=== PATIENT | female | born 1945 | race Caucasian/White ===

== ENCOUNTER → 2016-06-08 | Outpatient (REF) | payer MEDICARE, OTHER ==
[~2016-06-08] MED LIST: /AUGM875TA; /INSUREG; ACET65TA; ALLO100T PO; AMBI5TAB; AMBI6.25 PO; ASPI1TAB PO; AUGM500T34 PO; CRES40TA PO; DARV100T; DIAZ5TAB PO; ESTR3TA; ESTR3TA PO; HYDR25TA6; IBUP400T; INSUN SC; INSUR SC; KRIL1000 PO; LISI-538 PO; LISI10TA4; LISI2.5T; MAGN500C PO; METO25TAB PO; NOVOLIN N; OMEP20CA3 PO; PARO-39 PO; PHENERGAN; SIMV80TA; THERGRAN; TRAM50TA2 PO; VALI5TAB; VITMTA PO
[2016-06-08 11:56] LABS: EOS # 0.2 K/mm3 (0.0-0.50); EOS % 3.5 % (0.0-3.0); LARGE UNSTAINED CELL # 0.2 K/mm3 (0.0-0.4); LARGE UNSTAINED CELL % 3.3 % (0.0-4.0); LYMPH # 1.9 K/mm3 (1.5-4.5); LYMPH % 32.5 % (24.0-44.0); MEAN CORPUSCULAR HGB CONC 33.5 g/dl (32.0-36.5); MEAN CORPUSCULAR VOLUME 101.4 fl (80.0-96.0); MONO # 0.4 K/mm3 (0.0-0.8); MONO % 7.4 % (0.0-5.0); NEUTROPHILS # 2.7 K/mm3 (1.8-7.7); NEUTROPHILS % 52.3 % (36.0-66.0); PLATELET COUNT, AUTOMATED 248 k/mm3 (150-450); RED CELL DISTRIBUTION WIDTH 13.6 % (11.5-14.5); WHITE BLOOD COUNT 5.2 K/mm3 (4.0-10.0)
[2016-06-08 12:19] LABS: ALBUMIN 3.4 GM/DL (3.2-5.2); ALBUMIN/GLOBULIN RATIO 0.97 (1.00-1.93); BILIRUBIN,TOTAL 0.3 MG/DL (0.2-1.0); CALCIUM LEVEL 10.1 MG/DL (8.8-10.2); CREATININE FOR GFR 1.24 MG/DL (0.55-1.02); GLOMERULAR FILTRATION RATE 45.8 (>45); PERCENT SATURATION 33.9 % (13.2-37.4); POTASSIUM SERUM 4.4 MEQ/L (3.5-5.1); TOTAL PROTEIN 6.9 GM/DL (6.4-8.2)
== END ==
LOC: M SFHCPLAZ 09:04
PROVIDERS: ATTEND Physician Assistant Medical
DX: D64.9 Anemia, unspecified (principal); E11.9 Type 2 diabetes mellitus without complications

== ENCOUNTER → 2016-06-08 | Outpatient (CLI) | payer MEDICARE, OTHER ==
--- NOTE | 2016-06-08 14:38 | REPMRS ---
Patient History The patient states she has not had a clinical breast exam in over a year. No known family history of cancer. Taking estrogen for 8 years. Digital Woman Screen Mammo: June 08, 2016 - Exam #: [id number] Bilateral CC and MLO view(s) were taken. Technologist: Noemi Joseph, Technologist Prior study comparison: August 15, 2013, digital woman screen mammo performed at [facility]. January 21, 2012, bilateral bilat screen digital mammo, performed at [facility]. September 17, 2009, bilateral bilat screen digital mammo, performed at [facility]. FINDINGS: There are scattered fibroglandular densities. There has been no change in the appearance of the mammogram from the prior studies. There is a mild amount of scattered fibroglandular density which is fairly symmetric. There is no interval development of dominant mass, architectural distortion, or clustered microcalcification suggestive of malignancy. ASSESSMENT: BI-RADS/ACR category 1 mammogram. Negative. Recommendation Routine screening mammogram in 1 year (for women over age 40). This mammogram was interpreted with the aid of an FDA-approved computer-aided dectection system. Electronically Signed By: Ronni Street MD 06/08/16 [id number]
--- NOTE | 2016-06-10 09:50 | DEXA ---
AP SPINE L1 - L4 0.957 -1.9 -1.1 LT FEMUR TOTAL 0.856 -1.2 -0.4 RT FEMUR TOTAL 0.843 -1.3 -0.5 TOTAL BODY TOTAL L3 0.864 -2.8 -2.0 DUAL FEMUR FRAX* ASSESSMENT Risk factors: History of adult fracture, insulin-dependent diabetic, premature menopause, rheumatoid arthritis, tobacco user. 10 year probability of fracture Major osteoporotic fracture 19.2 % Hip fracture 4.3 % COMMENTS: There is low bone density of the spine and hips. The density of the spine has increased 0.9% since 08/15/2013. The density of the left hip has decreased 3.2% since 08/15/2013. The density of the right hip has decreased 1.7% since 08/15/2013. FOLLOW-UP: Recommendation for the next bone density exam: 2 years. GIULIA
== END ==
LOC: M WHC 12:55
PROVIDERS: ATTEND Physician Assistant Medical
DX: Z12.31 Encounter for screening mammogram for malignant neoplasm of breast (principal); I10 Essential (primary) hypertension; M85.851 Other specified disorders of bone density and structure, right thigh; D64.9 Anemia, unspecified; E11.9 Type 2 diabetes mellitus without complications; M85.852 Other specified disorders of bone density and structure, left thigh; M85.89 Other specified disorders of bone density and structure, multiple sites
CPT/HCPCS: 36415; 77080; 80053; 82043; 82728; 83036; 83550; 85025; G0202

== ENCOUNTER 2016-06-10 15:05 | Emergency (ER) | payer MEDICARE, OTHER ==
[~2016-06-10] VITALS: Ht 160 cm; Wt 87.1 kg
[2016-06-10] MEDS ORDERED: ASPIRIN 81 MG CHEW TABLET As Ordered ONE (15:33)
[2016-06-10] MEDS: NITROGLYCERIN 0.4 MG SUBL TABLET SL PRN ×3 (15:37→15:57)
[2016-06-10] MEDS ORDERED: TENECTEPLASE 50 MG KIT (TNKase)(J3101) IV ONE (15:45)
[2016-06-10] MEDS ORDERED: NITROGLYCERIN 2% OINT 1 GM *U/D* PKT As Ordered ONE (15:58)
[2016-06-10] MEDS ORDERED: ASPIRIN 81 MG CHEW TABLET PO ONE ×2 (16:00→16:15)
[2016-06-10] MEDS ORDERED: HEPARIN SOD (PORCINE) 5000 UNITS/ML VIAL IV ONE ×3 (16:00→16:15)
[2016-06-10] MEDS ORDERED: CLOPIDOGREL 75 MG TAB PO STA (16:00)
[2016-06-10] MEDS ORDERED: MORPHINE 4 MG/ML 1ML SYRINGE As Ordered ONE (16:10)
[2016-06-10 16:13] LABS: BASO % 0.5 % (0.0-1.0); EOS # 0.1 K/mm3 (0.0-0.50); EOS % 1.2 % (0.0-3.0); LARGE UNSTAINED CELL # 0.2 K/mm3 (0.0-0.4); LARGE UNSTAINED CELL % 2.3 % (0.0-4.0); LYMPH # 1.3 K/mm3 (1.5-4.5); LYMPH % 12.8 % (24.0-44.0); MEAN CORPUSCULAR HEMOGLOBIN 33.9 pg (27.0-33.0); MEAN CORPUSCULAR HGB CONC 33.4 g/dl (32.0-36.5); MEAN CORPUSCULAR VOLUME 101.7 fl (80.0-96.0); MONO # 0.5 K/mm3 (0.0-0.8); MONO % 5.1 % (0.0-5.0); NEUTROPHILS # 6.9 K/mm3 (1.8-7.7); NEUTROPHILS % 78.1 % (36.0-66.0); PLATELET COUNT, AUTOMATED 246 k/mm3 (150-450); RED CELL DISTRIBUTION WIDTH 13.6 % (11.5-14.5); WHITE BLOOD COUNT 8.9 K/mm3 (4.0-10.0)
[2016-06-10] MEDS ORDERED: NITROGLYCERIN 2% OINT 1 GM *U/D* PKT TOP ONE (16:15)
[2016-06-10] MEDS ORDERED: METOPROLOL TART 25 MG TABLET PO ONE (16:15)
[2016-06-10] MEDS ORDERED: MORPHINE 4 MG/ML 1ML SYRINGE IV ONE (16:15)
[2016-06-10] MEDS ORDERED: HEPARIN DRIP 25,000 UNITS in APPROPRIATE DILUENT 1 EA IV SCH (16:30)
[2016-06-10] MEDS ORDERED: ONDANSETRON 4MG/2ML VIAL (J2405) As Ordered ONE (16:36)
[2016-06-10] MEDS ORDERED: ONDANSETRON 4MG/2ML VIAL (J2405) IV ONE (16:45)
--- NOTE | 2016-06-10 16:55 | REP ---
PORTABLE CHEST, ONE VIEW: HISTORY: Chest pain. COMPARISON: 11/10/2015 Minimal bibasilar scarring is present. The cardiac silhouette is enlarged. The pulmonary vasculature is normal in appearance. IMPRESSION: 1. Bibasilar scarring. 2. Cardiomegaly. Signed by Lucho Briggs MD 06/10/2016 04:55 P
[2016-06-10] MEDS ORDERED: HEPARIN SOD (PORCINE) 5000 UNITS/ML VIAL ONE (17:07)
[2016-06-10] MEDS ORDERED: HEPARIN 25,000 UNITS/250 ML D5W BAG (100 UNITS/ML) ONE (17:07)
[2016-06-10] MEDS ORDERED: TENECTEPLASE 50 MG KIT (TNKase)(J3101) ONE (17:07)
[2016-06-10 17:15] LABS: CALCIUM LEVEL 9.9 MG/DL (8.8-10.2); CREATININE FOR GFR 1.38 MG/DL (0.55-1.02); GLOMERULAR FILTRATION RATE 40.5 (>45); POTASSIUM SERUM 3.8 MEQ/L (3.5-5.1)
--- NOTE | 2016-06-10 17:16 | REP ---
CT HEAD WITHOUT CONTRAST: HISTORY: Headache. Areas of decreased attenuation are present in the periventricular white matter. This represents small vessel ischemic disease. There is no intraparenchymal hemorrhage, mass, or midline shift. The ventricular system and cortical sulci are dilated consistent with minimal volume loss. There is no extracerebral collection. Mucosal thickening is present in the maxillary and right ethmoid sinuses. IMPRESSION: 1. Small vessel ischemic disease. 2. Minimal volume loss. Signed by Lucho Briggs MD 06/11/2016 08:20 A
[2016-06-10 17:20] VITALS: BP 160/68
[2016-06-10] MEDS ORDERED: NS 500 ML IV ONE (17:45)
--- NOTE | 2016-06-10 18:07 | ECGEPIP ---
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
--- NOTE | 2016-06-10 18:07 | ECGEPIP ---
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
== END 2016-06-10 17:25 | disposition short-term general hospital (02) ==
LOC: M ED 17:06
DX: I21.3 ST elevation (STEMI) myocardial infarction of unspecified site (principal); I10 Essential (primary) hypertension; E11.9 Type 2 diabetes mellitus without complications; J45.909 Unspecified asthma, uncomplicated; F41.9 Anxiety disorder, unspecified; E78.5 Hyperlipidemia, unspecified; N28.9 Disorder of kidney and ureter, unspecified; Z79.899 Other long term (current) drug therapy; Z79.82 Long term (current) use of aspirin; Z79.4 Long term (current) use of insulin; Z88.2 Allergy status to sulfonamides; Z88.5 Allergy status to narcotic agent
CPT/HCPCS: 36415; 70450; 71010; 80048; 82550; 82553; 84484; 85025; 93005; 93041; 94760; 96374; 96375; 99285; J2405; J3101

== ENCOUNTER → 2016-07-01 | Outpatient (REF) | payer MEDICARE, OTHER ==
[2016-07-01 12:56] LABS: INR 1.74
== END ==
LOC: M LABDRWAD 12:21
PROVIDERS: ATTEND Nurse Practitioner Family
DX: Z51.81 Encounter for therapeutic drug level monitoring (principal); Z79.01 Long term (current) use of anticoagulants; I25.10 Atherosclerotic heart disease of native coronary artery without angina pectoris; Z95.1 Presence of aortocoronary bypass graft

== ENCOUNTER → 2016-07-03 | Outpatient (REF) | payer MEDICARE, OTHER ==
[2016-07-03 10:09] LABS: INR 1.5
== END ==
LOC: M LABDRWAD 09:52
PROVIDERS: ATTEND Nurse Practitioner Family
DX: Z51.81 Encounter for therapeutic drug level monitoring (principal); Z79.01 Long term (current) use of anticoagulants; I25.10 Atherosclerotic heart disease of native coronary artery without angina pectoris; Z95.1 Presence of aortocoronary bypass graft

== ENCOUNTER → 2016-07-13 | Outpatient (REF) | payer MEDICARE, OTHER ==
[2016-07-13 13:37] LABS: BASO # 0.1 K/mm3 (0.0-0.2); BASO % 0.9 % (0.0-1.0); EOS # 0.2 K/mm3 (0.0-0.50); LARGE UNSTAINED CELL # 0.2 K/mm3 (0.0-0.4); LARGE UNSTAINED CELL % 2.7 % (0.0-4.0); LYMPH # 1.4 K/mm3 (1.5-4.5); LYMPH % 16.8 % (24.0-44.0); MEAN CORPUSCULAR HEMOGLOBIN 32.7 pg (27.0-33.0); MEAN CORPUSCULAR HGB CONC 31.7 g/dl (32.0-36.5); MEAN CORPUSCULAR VOLUME 103.1 fl (80.0-96.0); MONO # 0.5 K/mm3 (0.0-0.8); MONO % 7.8 % (0.0-5.0); NEUTROPHILS # 4.8 K/mm3 (1.8-7.7); NEUTROPHILS % 68.9 % (36.0-66.0); PLATELET COUNT, AUTOMATED 384 k/mm3 (150-450); RED CELL DISTRIBUTION WIDTH 14.9 % (11.5-14.5); WHITE BLOOD COUNT 6.9 K/mm3 (4.0-10.0)
[2016-07-13 13:48] LABS: ALBUMIN 3.1 GM/DL (3.2-5.2); ALBUMIN/GLOBULIN RATIO 0.89 (1.00-1.93); ALKALINE PHOSPHATASE 157 U/L (45-117); ALT/SGPT 38 U/L (12-78); ANION GAP 8 MEQ/L (8-16); AST/SGOT 17 U/L (15-37); BILIRUBIN,TOTAL 0.3 MG/DL (0.2-1.0); BLOOD UREA NITROGEN 22 MG/DL (7-18); CALCIUM LEVEL 9.4 MG/DL (8.8-10.2); CARBON DIOXIDE LEVEL 24 MEQ/L (21-32); CHLORIDE LEVEL 110 MEQ/L (98-107); CHOLESTEROL LEVEL 142 MG/DL (<200); CREATININE FOR GFR 1.61 MG/DL (0.55-1.02); FERRITIN 224 NG/ML (8-252); GLOMERULAR FILTRATION RATE 33.9 (>45); GLUCOSE, FASTING 104 MG/DL (80-110); PERCENT SATURATION 9.2 % (13.2-37.4); POTASSIUM SERUM 4.9 MEQ/L (3.5-5.1); SODIUM LEVEL 142 MEQ/L (136-145); TOTAL IRON BINDING CAPACITY 306 UG/DL (250-450); TOTAL PROTEIN 6.6 GM/DL (6.4-8.2); TRIGLYCERIDES LEVEL 165 MG/DL (<150)
[2016-07-13 13:54] LABS: FOLATE > 24.0 NG/ML; VITAMIN B12 LEVEL 701 PG/ML
== END ==
LOC: M SFHCPLAZ 11:02
PROVIDERS: ATTEND Physician Assistant Medical
DX: I10 Essential (primary) hypertension (principal); E11.9 Type 2 diabetes mellitus without complications; D64.9 Anemia, unspecified

== ENCOUNTER 2016-08-12 18:34 | Inpatient (IN) | payer MEDICARE, OTHER ==
[~2016-08-12] VITALS: Ht 160 cm; Wt 90.6 kg
[~2016-08-12 18:34] MED LIST changes: -AMLO10TA2 PO; -AMLO5TAB2 PO; -ASPI81TAEC PO; -CIPRODEX AS; -CLON-412 PO; -COLC1CAP PO; -FERR325T PO; -K-TA1TAB PO; -LASI40TA PO; -LIPI80TA PO; -MAGN400T PO; -METO-346 PO; -ONDA1TAB15 PO; -RAMI25CA PO; -VITA-130 PO; -VITA100037 PO; -VITA400C2 PO; -VITA50003 PO; -ZOFR4SOL PO
[2016-08-12] MEDS ORDERED: LIPI80TA PO (18:52)
[2016-08-12] MEDS ORDERED: K-TA1TAB PO (18:56)
[2016-08-12] MEDS ORDERED: COLC1CAP PO (18:56)
[2016-08-12] MEDS ORDERED: AMLO5TAB2 PO (18:56)
[2016-08-12] MEDS ORDERED: ZOFR4SOL PO (18:56)
[2016-08-12] MEDS ORDERED: VITA100037 PO (18:56)
[2016-08-12] MEDS ORDERED: CLON-412 PO (18:58)
[2016-08-12 19:51] LABS: BASO # 0.1 K/mm3 (0.0-0.2); BASO % 0.8 % (0.0-1.0); EOS # 0.3 K/mm3 (0.0-0.50); EOS % 4.4 % (0.0-3.0); LARGE UNSTAINED CELL # 0.2 K/mm3 (0.0-0.4); LARGE UNSTAINED CELL % 2.7 % (0.0-4.0); LYMPH # 1.3 K/mm3 (1.5-4.5); LYMPH % 17.6 % (24.0-44.0); MEAN CORPUSCULAR HEMOGLOBIN 32.8 pg (27.0-33.0); MEAN CORPUSCULAR HGB CONC 31.6 g/dl (32.0-36.5); MONO # 0.5 K/mm3 (0.0-0.8); MONO % 7.2 % (0.0-5.0); NEUTROPHILS # 4.8 K/mm3 (1.8-7.7); NEUTROPHILS % 67.4 % (36.0-66.0); PLATELET COUNT, AUTOMATED 314 k/mm3 (150-450); WHITE BLOOD COUNT 7.1 K/mm3 (4.0-10.0)
--- NOTE | 2016-08-12 20:07 | REP ---
Chest two views HISTORY: Cough Comparison: 06/10/2016 Linear densities are present in the lower lobes consistent with scarring. New patchy density is present in the right lower lobe and left lower lobe consistent with atelectasis or infiltrate. The heart is normal in size. The pulmonary vasculature is normal in appearance. The bony structure is intact. IMPRESSION: Bibasilar atelectasis or infiltrate superimposed on scarring. Signed by Lucho Briggs MD 08/12/2016 07:59 P
[2016-08-12 20:22] LABS: ALBUMIN 3.4 GM/DL (3.2-5.2); ALBUMIN/GLOBULIN RATIO 0.94 (1.00-1.93); ALKALINE PHOSPHATASE 145 U/L (45-117); ALT/SGPT 36 U/L (12-78); ANION GAP 8 MEQ/L (8-16); AST/SGOT 23 U/L (15-37); BILIRUBIN,DIRECT 0.1 MG/DL (0.0-0.2); BILIRUBIN,TOTAL 0.4 MG/DL (0.2-1.0); BLOOD UREA NITROGEN 12 MG/DL (7-18); CALCIUM LEVEL 8.9 MG/DL (8.8-10.2); CARBON DIOXIDE LEVEL 26 MEQ/L (21-32); CHLORIDE LEVEL 107 MEQ/L (98-107); CREATININE FOR GFR 1.17 MG/DL (0.55-1.02); GLUCOSE, FASTING 121 MG/DL (80-110); POTASSIUM SERUM 4.4 MEQ/L (3.5-5.1); SODIUM LEVEL 141 MEQ/L (136-145)
--- NOTE | 2016-08-12 20:30 | REPUSA ---
Clinical history: Pain, swelling. Findings: The common femoral, superficial femoral, popliteal, and other deep venous structures compre ss normally and demonstrate normal color Doppler flow. Normal venous waveforms with augmentation are seen.. A cystic lesion in the right popliteal fossa measures 5.8 x 3.5 x 2.6 cm. A cystic lesion in t he left popliteal fossa measures 6.1 x 1.7 x 5.6 cm. Impression: No evidence of deep vein thrombosis in either femoral popliteal venous system. Bilateral Sáncehz cysts.
[2016-08-12 20:39] LABS: INR 0.93
[2016-08-12] MEDS ORDERED: AMPICILLIN SOD/SULBACTAM SOD 1.5 GM in D5W MINI-BAG PLUS 50 ML IV ONE (20:45)
[2016-08-12] MEDS ORDERED: CIPRODEX OTIC SUSP 7.5ML AS SCH (21:00)
[2016-08-12] MEDS ORDERED: FUROSEMIDE 40 MG/4 ML VIAL (J1940) IV ONE (21:00)
[2016-08-12] MEDS ORDERED: IPRATROPIUM 0.5MG/ALBUTEROL 2.5MG INH SOL UD 3ML (DUONEB)(J7620) NEB PRN (21:45)
[2016-08-12] MEDS ORDERED: GLUCAGON FOR INJ 1 MG VIAL (J1610) SC PRN (21:45)
[2016-08-12] MEDS ORDERED: DEXTROSE 50% 50 ML SYRINGE IV PRN (21:45)
[2016-08-12] MEDS ORDERED: GLUCOSE 4 GM CHEW TABLET PO PRN (21:45)
[2016-08-12] MEDS ORDERED: ASPI81TAEC PO (21:49)
[2016-08-12] MEDS ORDERED: MAGN400T PO (21:49)
[2016-08-12] MEDS ORDERED: VITA50003 PO (21:49)
[2016-08-12] MEDS ORDERED: VITA400C2 PO (21:49)
[2016-08-12] MEDS ORDERED: METO-346 PO (21:49)
[2016-08-12] MEDS ORDERED: VITA-130 PO (21:49)
[2016-08-12] MEDS ORDERED: ONDA1TAB15 PO (21:49)
[2016-08-12] MEDS ORDERED: AMLO10TA2 PO (21:49)
[2016-08-12 23:55] VITALS: BP 166/54
[2016-08-13] MEDS ORDERED: ONDANSETRON 4 MG TAB (S0181) PO PRN
--- NOTE | 2016-08-13 00:22 | HPE ---
DATE OF ADMISSION: 08/12/2016 PRIMARY CARE PROVIDER: The patient seeing Angi Galindo. REASON FOR ADMISSION: Ankle swelling. HISTORY OF PRESENT ILLNESS: The patient is a 70-year-old female who presented to the emergency room after she was instructed to do so from urgent care clinic. She stated that patient has been having some ankle swelling and shortness of breath for about a day. Went to urgent care clinic, and they saw that her ankle was swollen. The patient was also there because of an ongoing otitis externa. At the urgent care clinic after they had evaluated her, they recommended that she present to the emergency room for further evaluation and treatment. In the emergency room the patient had cultures of her ear. She was started on Unasyn for her otitis externa. She was also evaluated for possible congestive heart failure and shortness of breath. Her brain natriuretic peptide (BNP) was found to be 607. The patient required oxygen supplementation to bring her saturations above 90. Upon my exam, she was on 4 liters nasal cannula. She denied any shortness of breath while lying in bed, but she stated that yesterday and earlier today she was unable to exert herself without getting short of breath, which is not normal for her. She is normally active and lives independently. In the emergency room, the patient also underwent a chest x-ray, which showed bilateral atelectasis or infiltrate superimposed on scarring. Lower extremity ultrasound was done to evaluate for lower extremity swelling and was negative for deep vein thrombosis (DVT). The patient denied any chest pain at this time. Denied any shortness of breath with rest. Only with activity did she feel short of breath. Denied any fevers or chills. Denied any cough. Denied any nausea or vomiting. Denied any headaches or dizziness. Denied any other symptoms. REVIEW OF SYSTEMS: A 12-point review of systems was obtained, all of which was negative except for those mentioned above. PAST MEDICAL HISTORY: Significant for: 1. Coronary disease. 2. Hypertension. 3. Hyperlipidemia. 4. Diabetes. 5. Chronic kidney disease. 6. Gout. 7. Anxiety. 8. Chronic obstructive pulmonary disease (COPD). PAST SURGICAL HISTORY: Significant for: 1. Recent cardiac bypass in June. 2. Cholecystectomy. 3. Appendectomy. 4. Tonsillectomy. 5. Adenoidectomy. 6. Multiple dilatation and curettages. 7. Partial hysterectomy and tubal ligation. ALLERGIES: NARCOTICS and SULFA DRUGS. SOCIAL HISTORY: The patient used to smoke a pack a day for approximately 50 years. She had quit after her heart attack in June. Alcohol use: None. The patient lives alone. HOME MEDICATIONS: Include: - allopurinol 100 mg by mouth daily - amlodipine 10 mg daily - ascorbic acid 500 mg daily - aspirin 81 mg daily - atorvastatin 80 mg daily - clonidine 0.1 mg by mouth twice a day - diazepam 5 mg by mouth at bedtime - vitamin D 50,000 units once a week - insulin sliding scale - magnesium 400 mg daily - metoprolol 12.5 mg by mouth as needed cardiac palpitations and 12.5 daily - multivitamin one tablet daily - omeprazole 20 mg daily - Zofran 4 mg every 8 hours as needed for nausea or vomiting - paroxetine 20 mg daily - potassium chloride 20 mEq by mouth daily - vitamin E 40 units by mouth daily, - Ambien 6.25 mg by mouth at bedtime - Colchicine 0.6 mg by mouth twice a day as needed for gout flare-ups - Premarin tablets 0.3 mg by mouth at bedtime PHYSICAL FINDINGS: VITAL SIGNS: On admission, temperature 97.2, pulse 68, respiratory rate 18, blood pressure is 183/79, pulse oximetry 93% on room air. HEENT: Pupils equal, round, reactive to light and accommodation. NECK: Supple. No jugular venous distention (JVD). LUNGS: Positive crackles bilaterally. EXTREMITIES: Trace edema bilaterally. ABDOMEN: Soft, nontender, nondistended. NEUROLOGIC: Cranial nerves II-XII grossly intact. No focal deficits. LABORATORY FINDINGS: Sodium 41, potassium 4.4, chloride 107, BUN 12, creatinine 1.17, lactic acid 1.5 , fasting glucose 121, alkaline phosphatase 145, C-reactive protein 0.64. BNP 607. WBC 7.1, hemoglobin 10.8, hematocrit 34.1, platelet count 314. ASSESSMENT AND PLAN: 1. Shortness of breath, likely secondary to congestive heart failure versus possible pneumonia. The patient received one dose of intravenous (IV) Lasix in the emergency room. We will continue the patient on IV Lasix. Will monitor intake and output and daily weight. The patient recently had an echocardiogram after her bypass in June. Recommend obtaining records. The patient is also on Unasyn. We will start the patient on incentive spirometer. The patient is currently requiring oxygen to keep saturations above 90. We will continue oxygen at this time. Titrate to keep oxygen level above 90%. 2. Otitis externa. Cultures are pending. Continue IV antibiotics. 3. Insulin-dependent diabetes. We will continue sliding-scale insulin before meals and at bedtime. 4. Hypertension. Continue the patient's amlodipine, metoprolol, and clonidine. 5. Hyperlipidemia. Continue atorvastatin 80 mg by mouth daily. 6. History of anxiety. Will continue the patient's home medications. 7. History of gout. Continue allopurinol. 8. History of chronic kidney disease, currently stable. 9. History of CAD. 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 Deep vein thrombosis (DVT) prophylaxis. Lovenox subcutaneously daily. MTDD
[2016-08-13] MEDS: OXYMETAZOLINE NASAL SPRAY (AFRIN) SCH ×2 (00:59→20:59)
[2016-08-13] MEDS: zolPIDEM CR 6.25MG TABLET (AMBIEN CR) PO SCH ×2 (00:59→23:12)
[2016-08-13] MEDS: cloNIDine 0.1 MG TAB PO SCH ×3 (00:59→20:58)
[2016-08-13] MEDS ORDERED: AMPICILLIN SOD/SULBACTAM SOD 1.5 GM in D5W MINI-BAG PLUS 50 ML IV SCH (03:00)
[2016-08-13] MEDS: AMPICILLIN SOD/SULBACTAM SOD 1.5 GM in D5W MINI-BAG PLUS 50 ML IV SCH ×4 (03:36→20:57)
[2016-08-13 04:54] VITALS: BP 150/65
[2016-08-13 05:49] LABS: MEAN CORPUSCULAR HEMOGLOBIN 32.1 pg (27.0-33.0); MEAN CORPUSCULAR HGB CONC 31.4 g/dl (32.0-36.5); RED CELL DISTRIBUTION WIDTH 14.9 % (11.5-14.5); WHITE BLOOD COUNT 6.9 K/mm3 (4.0-10.0)
[2016-08-13 06:21] LABS: ALBUMIN/GLOBULIN RATIO 0.83 (1.00-1.93); BILIRUBIN,TOTAL 0.4 MG/DL (0.2-1.0); CALCIUM LEVEL 8.3 MG/DL (8.8-10.2); CREATININE FOR GFR 1.09 MG/DL (0.55-1.02); GLOMERULAR FILTRATION RATE 53.1 (>45); MAGNESIUM LEVEL 1.5 MG/DL (1.8-2.4); POTASSIUM SERUM 3.8 MEQ/L (3.5-5.1); TOTAL PROTEIN 6.6 GM/DL (6.4-8.2)
[2016-08-13] MEDS: HumaLOG INSULIN (NovoLOG) PER UNIT SC SCH ×3 (07:55→16:54)
[2016-08-13 08:00] VITALS: BP 153/66
[2016-08-13] MEDS ORDERED: amLODIPine 10 MG TAB PO SCH (09:00)
[2016-08-13] MEDS: FUROSEMIDE 40 MG/4 ML VIAL (J1940) IV SCH ×2 (09:34→16:44)
[2016-08-13] MEDS: CIPRODEX OTIC SUSP 7.5ML AS SCH ×2 (09:34→20:57)
[2016-08-13] MEDS: ATORVASTATIN 20 MG TAB PO SCH (09:35)
[2016-08-13] MEDS: ASPIRIN 81 MG ENTERIC TAB PO SCH (09:35)
[2016-08-13] MEDS: ENOXAPARIN 30 MG/0.3 ML SYR (J1650) SC SCH (09:35)
[2016-08-13] MEDS: OMEPRAZOLE 20 MG CAP PO SCH (09:36)
[2016-08-13] MEDS: PARoxetine 20 MG TAB PO SCH (09:36)
[2016-08-13] MEDS: ALLOPURINOL 100 MG TAB PO SCH (09:37)
[2016-08-13] MEDS: POTASSIUM CHLORIDE 10 MEQ SR TABLET PO SCH (09:37)
[2016-08-13] MEDS: METOPROLOL TART 12.5 MG PER 1/2 TAB PO SCH (09:37)
[2016-08-13] MEDS: MULTIVITAMINS/MINERALS THERAP 1 TAB PO SCH (09:37)
[2016-08-13] MEDS: ASCORBIC ACID 500 MG TAB PO SCH (09:38)
[2016-08-13] MEDS: MAGNESIUM OXIDE 400 MG TAB (MAG-OX) PO SCH (09:38)
--- NOTE | 2016-08-13 10:09 | ECGEPIP ---
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
--- NOTE | 2016-08-13 10:57 | IPNPDOC ---
Subjective Date Seen The patient was seen on 08/13/16. Subjective Chief Complaint/HPI The patient is a 70-year-old female admitted with a reason for visit of Chf Exacerbation. Events since last encounter Pt this morning notes less swelling and tenderness of the L ear. Thinks it is less red also. She states that the swelling in her legs in much better than yesterday as well as her breathing, which she hadn't previously really identified as being short. General: Denies: Fatigue Constitutional: Denies: Chills, Fever Pulmonary: Denies: Dyspnea, Cough Cardiovascular: Denies: Chest Pain, Palpitations Gastrointestinal: Denies: Nausea, Vomiting, Diarrhea Neurological: Denies: Weakness Psych: Reports: Mood Normal Objective Physical Examination General Exam: Positive: Alert, Cooperative, No Acute Distress ENT Exam: Positive: Mucous membr. moist/pink, Other ENT (Auricle swollen, slightly tender on the L, yellow crust post ear) Chest Exam: Positive: Clear to auscultation, Normal air movement Heart Exam: Positive: Rate Normal, Normal S1, Normal S2 Abdomen Exam: Positive: Normal bowel sounds, Soft, Negative: Tenderness Extremity Exam: Positive: Edema (trace LLE, 1 mm RLE) Psych Exam: Positive: Mental status NL, Mood NL Assessment /Plan Problems (1) Acute on chronic diastolic (congestive) heart failure Permanent Comment: 06/11/16 ECHO - moderate LVH, nl EF, Carlos 1 diastolic dysfunction, LA mildly dilated, mild valvular , mild to mod AR, mild TR Last Edited By: Sandrita Enriquez PA-C on August 13, 2016 10:55 Status: Acute Response to Treatment: Stable, Improving Discussed With: Patient Problem Specific Plan: Monitor Clinically, Repeat Labs Problem Text: On IV Lasix 40 mg IV BID for now, enc SAEID diet, will need to be d /c on PO Lasix, previously was no one. 08/13/16 close to dry weight//net - fluid 3L//+ ramipril 2.5 BID, reduce amlo 10 to 5 (h/o rebound HTN c clonidine wean) ECHO 06/11/16 suggests nl EF, + diastolic dysfunction-repeat now 08/12/16 - CIP/T-I x 3 (2) Fe deficiency anemia Status: Acute Problem Text: also 2 ACD/recent loss 2 CABG 08/13 9.6; therefore, + Fe BID, check HO 07/13 TIBC 9% 06/08 hgb 12.8 (3) Cellulitis of ear Status: Acute Response to Treatment: Stable, Improving Discussed With: Patient Problem Specific Plan: Monitor Clinically, Repeat Labs Problem Text: Started on Unasyn, culture obtained, states that she had a sore behind the ear from wearing O2 while at [facility] kept getting worse. It is much better today than yesterday. Afebrile, no leukocytosis, cultures pending. (4) Otitis externa Status: Acute (5) CAD (coronary artery disease) Status: Chronic Response to Treatment: Stable Problem Specific Plan: Monitor Clinically Problem Text: Recent CABG, asymptomatic. Cont with ASA, Lipitor, Lopressor (6) Hypomagnesemia Status: Acute Problem Specific Plan: Monitor Clinically, Repeat Labs Problem Text: Replaced with po and IV Mag. Recheck Mag level in AM. (7) CKD (chronic kidney disease) stage 3, GFR 30-59 ml/min Status: Chronic Response to Treatment: Stable Problem Text: 08/13 14/1.1 baseline cr 1.1-1.2 Plan/VTE VTE Prophylaxis Ordered?: Yes VS, I&O, 24H, Fishbone Vital Signs/I&O Vital Signs Date Time Temp Pulse Resp B/P (MAP) Pulse Ox O2 Delivery O2 Flow Rate FiO2 08/13/16 09:37 69 153/66 08/13/16 08:00 98.6 22 92 Room Air 08/13/16 07:33 2.0 I&O- Last 24 Hours up to 6 AM 08/13/16 05:59 Intake Total 150 ml Output Total 4350 ml Balance -4200 ml Laboratory Data 24H LABS Laboratory Tests 2 08/12/16 18:52: White Blood Count 7.1, Red Blood Count 3.27L, Hemoglobin 10.8L, Hematocrit 34.1L , Mean Corpuscular Volume 104.0H, Mean Corpuscular Hemoglobin 32.8, Mean Corpuscular Hemoglobin Concent 31.6L, Red Cell Distribution Width 15.0H, Platelet Count 314, Neutrophils (%) (Auto) 67.4H, Lymphocytes (%) (Auto) 17.6L, Monocytes (%) (Auto) 7.2H, Eosinophils (%) (Auto) 4.4H, Basophils (%) (Auto) 0.8 , Neutrophils # (Auto) 4.8, Lymphocytes # (Auto) 1.3L, Monocytes # (Auto) 0.5, Eosinophils # (Auto) 0.3, Basophils # (Auto) 0.1, Large Unclassified Cells % 2.7 , Large Unclassified Cells # 0.2, Prothrombin Time 12.6, Prothromb Time International Ratio 0.93, Anion Gap 8, Glomerular Filtration Rate 49.0, Calcium Level 8.9, Aspartate Amino Transf (AST/SGOT) 23, Alanine Aminotransferase (ALT/ SGPT) 36, Alkaline Phosphatase 145H, Total Bilirubin 0.4, Direct Bilirubin 0.1, Total Creatine Kinase 86, Creatine Kinase MB 1.0, Creatine Kinase MB Relative Index 1.16, Troponin I < 0.02, C-Reactive Protein, Quantitative 0.64H, B-Type Natriuretic Peptide 607H, Total Protein 7.0, Albumin 3.4, Albumin/Globulin Ratio 0.94L 08/12/16 20:14: Lactic Acid Level 1.5 08/12/16 23:14: Total Creatine Kinase 76, Creatine Kinase MB 1.0, Creatine Kinase MB Relative Index 1.31, Troponin I < 0.02 08/12/16 23:25: Bedside Glucose (Misc Panel) 125H 08/13/16 05:31: Anion Gap 9, Glomerular Filtration Rate 53.1, Blood Urea Nitrogen 14, Creatinine 1.09H, Sodium Level 141, Potassium Level 3.8, Chloride Level 103, Carbon Dioxide Level 29, Calcium Level 8.3L, Aspartate Amino Transf (AST/SGOT) 22, Alanine Aminotransferase (ALT/SGPT) 31, Total Creatine Kinase 69, Alkaline Phosphatase 131H, Total Bilirubin 0.4, Total Protein 6.6, Albumin 3.0L, Magnesium Level 1.5L, Creatine Kinase MB 1.0, Creatine Kinase MB Relative Index 1.44, Troponin I 0.02, Albumin/Globulin Ratio 0.83L CBC/BMP Laboratory Tests 08/12/16 18:52 Red Blood Count 3.27 L, Mean Corpuscular Volume 104.0 H, Mean Corpuscular Hemoglobin 32.8, Mean Corpuscular Hemoglobin Concent 31.6 L, Red Cell Distribution Width 15.0 H, Neutrophils (%) (Auto) 67.4 H, Lymphocytes (%) (Auto ) 17.6 L, Monocytes (%) (Auto) 7.2 H, Eosinophils (%) (Auto) 4.4 H, Basophils (% ) (Auto) 0.8, Neutrophils # (Auto) 4.8, Lymphocytes # (Auto) 1.3 L, Monocytes # (Auto) 0.5, Eosinophils # (Auto) 0.3, Basophils # (Auto) 0.1 08/13/16 05:31 Red Blood Count 3.01 L, Mean Corpuscular Volume 102.0 H, Mean Corpuscular Hemoglobin 32.1, Mean Corpuscular Hemoglobin Concent 31.4 L, Red Cell Distribution Width 14.9 H, Calcium Level 8.3 L, Aspartate Amino Transf (AST/SGOT ) 22, Alanine Aminotransferase (ALT/SGPT) 31, Total Creatine Kinase 69, Alkaline Phosphatase 131 H, Total Bilirubin 0.4, Total Protein 6.6, Albumin 3.0 L Microbiology Microbiology 08/12/16 Blood Culture, Received Pending 08/12/16 Blood Culture, Received Pending 08/12/16 Eye/Ear/Nose/Throat Culture, Received Pending SANDRITA ENRIQUEZ PA-C August 13, 2016 10:57 Brown Carroll M.D. August 13, 2016 16:36
[2016-08-13] MEDS: MAG SULF 1GM/100ML (MAG RUN) 1 GM in APPROPRIATE DILUENT 1 EA IV SCH ×2 (11:04→12:18)
[2016-08-13 12:00] VITALS: BP 130/62
[2016-08-13 16:00] VITALS: BP 142/64
[2016-08-13 19:34] VITALS: BP 165/69
[2016-08-13] MEDS: RAMIPRIL 2.5 MG CAP PO SCH (20:58)
[2016-08-13] MEDS: FERROUS SULFATE 325MG TAB PO SCH ×2 (20:58→21:00)
[2016-08-13] MEDS ORDERED: HumaLOG INSULIN (NovoLOG) PER UNIT SC SCH (21:00)
[2016-08-13 23:12] VITALS: BP 148/71
[2016-08-14] MEDS: AMPICILLIN SOD/SULBACTAM SOD 1.5 GM in D5W MINI-BAG PLUS 50 ML IV SCH ×2 (03:51→09:00)
[2016-08-14 04:42] VITALS: BP 144/69
[2016-08-14 05:40] LABS: MEAN CORPUSCULAR HEMOGLOBIN 33.1 pg (27.0-33.0); MEAN CORPUSCULAR HGB CONC 33.2 g/dl (32.0-36.5); MEAN CORPUSCULAR VOLUME 99.8 fl (80.0-96.0); RED CELL DISTRIBUTION WIDTH 15.1 % (11.5-14.5); WHITE BLOOD COUNT 4.7 K/mm3 (4.0-10.0)
[2016-08-14 05:58] LABS: ALBUMIN 2.9 GM/DL (3.2-5.2); ALBUMIN/GLOBULIN RATIO 0.81 (1.00-1.93); BILIRUBIN,TOTAL 0.5 MG/DL (0.2-1.0); CALCIUM LEVEL 8.8 MG/DL (8.8-10.2); CREATININE FOR GFR 1.16 MG/DL (0.55-1.02); GLOMERULAR FILTRATION RATE 49.5 (>45); POTASSIUM SERUM 4.1 MEQ/L (3.5-5.1); TOTAL PROTEIN 6.5 GM/DL (6.4-8.2)
[2016-08-14 08:00] VITALS: BP 156/72
[2016-08-14] MEDS ORDERED: RAMI25CA PO (08:14)
[2016-08-14] MEDS ORDERED: FERR325T PO (08:14)
[2016-08-14] MEDS ORDERED: LASI40TA PO (08:14)
[2016-08-14] MEDS ORDERED: AUGM500T34 PO (08:14)
[2016-08-14] MEDS ORDERED: AMLO5TAB2 PO (08:14)
[2016-08-14] MEDS ORDERED: CIPRODEX AS (08:14)
--- NOTE | 2016-08-14 08:43 | DSES ---
DATE OF ADMISSION: 08/12/2016 DATE OF DISCHARGE: 08/14/2016 PRIMARY CARE PROVIDER: Angi Galindo ATTENDING TODAY: Dr. Brown Carroll HISTORY: [place] first presented to urgent care with left-sided facial/ear pain, swelling, and redness, which had progressively been worsening. She states that when she was in the hospital about a month ago at [facility], she developed a sore behind her ear associated with wearing oxygen. She was unable to get this to heal and, in the last couple of days, it became red and painful and progressively worsened. Upon evaluation in the urgent care, they recommended she be seen in the emergency room because she also complained of shortness of breath and bilateral lower extremity edema. She was brought to the emergency room by her daughter, where she was found to be in diastolic congestive heart failure with a BNP of 607, requiring oxygenation to maintain her saturations greater than 90. She was admitted to the progressive care unit for further management and monitoring. She was also started on IV Unasyn for cellulitis of the left face and ear. During her hospitalization, she has remained medically stable. She has tolerated diuresis and has diuresed about 4.5 liters of fluid in the last 2-1/2 days. Her blood pressures have remained stable, as has her potassium. She has required magnesium replacement. Her echocardiogram from [facility] was reviewed; it was suggestive of a normal ejection fraction (EF) but a grade 1 diastolic dysfunction. Her left ear has significantly improved. The swelling, redness, and pain is significantly better. She is on ciprofloxacin/dexamethasone four drops twice daily to that left ear. She is also on Unasyn IV. She did have blood cultures, which were negative times two. She does have a wound culture of that ear, which remains pending. Due to the lower extremity edema, she also had ultrasound of bilateral lower extremities, which were negative for deep venous thrombosis (DVT). Clinically, she has improved. She has been weaned from her oxygen. Her respiratory status has improved. Her lower extremity edema has resolved. She feels comfortable to return home. DISCHARGE DIAGNOSES: Include: 1. Acute on chronic diastolic congestive heart failure. 2. Iron deficiency anemia. 3. Cellulitis of the left ear with otitis externa. 4. Coronary artery disease with recent coronary artery bypass graft (CABG) in June 2016. 5. Hypomagnesemia. 6. Chronic kidney disease Stage III. DISCHARGE MEDICATIONS: Include: - amlodipine 5 mg daily - Augmentin 500 mg by mouth three times a day - ciprofloxacin/dexamethasone drops, four drops to the left ear twice daily - ferrous sulfate 325 mg twice daily - Lasix 40 mg daily - Ramipril 2.5 mg twice daily - allopurinol 100 mg daily - vitamin C 500 mg by mouth daily - aspirin 81 mg daily - atorvastatin 80 mg daily - clonidine 0.1 mg twice daily - colchicine 0.6 mg by mouth twice a day as needed for gout - diazepam 5 mg before bed - vitamin D 50,000 units once weekly - NPH 22 units twice daily - regular sliding scale - magnesium oxide 400 mg daily - metoprolol 12.5 mg by mouth daily - multivitamin one tablet daily - omeprazole 20 mg daily - Zofran 4 mg every 8 hours as needed for nausea/vomiting - paroxetine 20 mg daily - potassium chloride 20 mEq by mouth daily - vitamin E 400 units daily - Ambien 6.25 mg by mouth before bed as needed for insomnia DISCHARGE PLAN: Will be to followup with Angi Galindo in 1 week. Activity should be as tolerated. Diet should be no added salt, consistent carbohydrate. Edited: lisset 08/17/2016 0901
[2016-08-14] MEDS: FERROUS SULFATE 325MG TAB PO SCH (09:00)
[2016-08-14] MEDS ORDERED: amLODIPine 5 MG TAB PO SCH (09:00)
[2016-08-14] MEDS: CIPRODEX OTIC SUSP 7.5ML AS SCH (09:46)
[2016-08-14] MEDS: HumaLOG INSULIN (NovoLOG) PER UNIT SC SCH (09:48)
[2016-08-14] MEDS: ENOXAPARIN 30 MG/0.3 ML SYR (J1650) SC SCH (09:49)
[2016-08-14] MEDS: FUROSEMIDE 40 MG/4 ML VIAL (J1940) IV SCH (09:49)
[2016-08-14] MEDS: ASPIRIN 81 MG ENTERIC TAB PO SCH (09:50)
[2016-08-14] MEDS: ASCORBIC ACID 500 MG TAB PO SCH (09:50)
[2016-08-14] MEDS: ATORVASTATIN 20 MG TAB PO SCH (09:50)
[2016-08-14] MEDS: POTASSIUM CHLORIDE 10 MEQ SR TABLET PO SCH (09:51)
[2016-08-14] MEDS: cloNIDine 0.1 MG TAB PO SCH (09:52)
[2016-08-14] MEDS: MAGNESIUM OXIDE 400 MG TAB (MAG-OX) PO SCH (09:52)
[2016-08-14] MEDS: RAMIPRIL 2.5 MG CAP PO SCH (09:53)
[2016-08-14] MEDS: ALLOPURINOL 100 MG TAB PO SCH (09:53)
[2016-08-14] MEDS: PARoxetine 20 MG TAB PO SCH (09:53)
[2016-08-14 10:07] VITALS: BP 150/60
[2016-08-14] MEDS: OMEPRAZOLE 20 MG CAP PO SCH (10:07)
[2016-08-14] MEDS: MULTIVITAMINS/MINERALS THERAP 1 TAB PO SCH (10:07)
[2016-08-14] MEDS: METOPROLOL TART 12.5 MG PER 1/2 TAB PO SCH (10:07)
== END 2016-08-14 11:19 | disposition home or self-care (01) | DRG 293 ==
LOC: M ED 19:36 → M ED INP 21:39 → M PCU 23:54
PROVIDERS: ADMIT Internal Medicine; ATTEND Family Medicine
DX: I50.33 Acute on chronic diastolic (congestive) heart failure (principal); N18.3 Chronic kidney disease, stage 3 (moderate); H60.392 Other infective otitis externa, left ear; E83.42 Hypomagnesemia; Z79.899 Other long term (current) drug therapy; D50.9 Iron deficiency anemia, unspecified; Z79.82 Long term (current) use of aspirin; Z79.4 Long term (current) use of insulin; I25.10 Atherosclerotic heart disease of native coronary artery without angina pectoris; E11.9 Type 2 diabetes mellitus without complications; M10.9 Gout, unspecified; F41.9 Anxiety disorder, unspecified; J44.9 Chronic obstructive pulmonary disease, unspecified; E78.5 Hyperlipidemia, unspecified; Z87.891 Personal history of nicotine dependence; Z88.2 Allergy status to sulfonamides; Z88.5 Allergy status to narcotic agent; I25.2 Old myocardial infarction; H60.12 Cellulitis of left external ear

== ENCOUNTER → 2016-08-12 | Outpatient (REF) | payer MEDICARE, OTHER ==
[~2016-08-12] MED LIST changes: +AMLO10TA2 PO; +AMLO5TAB2 PO; +ASPI81TAEC PO; +CIPRODEX AS; +CLON-412 PO; +COLC1CAP PO; +FERR325T PO; +K-TA1TAB PO; +LASI40TA PO; +LIPI80TA PO; +MAGN400T PO; +METO-346 PO; +ONDA1TAB15 PO; +RAMI25CA PO; +VITA-130 PO; +VITA100037 PO; +VITA400C2 PO; +VITA50003 PO; +ZOFR4SOL PO
== END ==
LOC: M WUC 12:18
PROVIDERS: ATTEND Physician Assistant
DX: H60.12 Cellulitis of left external ear (principal)

== ENCOUNTER → 2016-09-23 | Outpatient (REF) | payer MEDICARE, OTHER ==
[~2016-09-23] MED LIST changes: +AMLO10TA2 PO; +AMLO5TAB2 PO; +ASPI81TAEC PO; +CIPRODEX AS; +CLON-412 PO; +COLC1CAP PO; +FERR325T PO; +K-TA1TAB PO; +LASI40TA PO; +LIPI80TA PO; +MAGN400T PO; +METO-346 PO; +ONDA1TAB15 PO; +RAMI25CA PO; +VITA-130 PO; +VITA100037 PO; +VITA400C2 PO; +VITA50003 PO; +ZOFR4SOL PO
[2016-09-23 12:10] LABS: INR 0.98
== END ==
LOC: M SFHCPLAZ 09:08
PROVIDERS: ATTEND Physician Assistant Medical
DX: I25.10 Atherosclerotic heart disease of native coronary artery without angina pectoris (principal)

== ENCOUNTER → 2016-11-05 | Outpatient (REF) | payer MEDICARE, OTHER ==
[~2016-11-05] MED LIST changes: +FERR1TAB8 PO; -FERR325T PO; +METO25TA4 PO; -METO25TAB PO; -ONDA1TAB15 PO; +ONDA4TAB5 PO; -PARO-39 PO; +PARO20TA4 PO; -VITA-130 PO; -VITA100037 PO; +VITA100067 PO; +VITA1CAP40 PO; -VITA400C2 PO; +VITA400C7 PO; -VITA50003 PO; +VITA500T PO
[2016-11-05 17:56] LABS: PERCENT SATURATION 28.4 % (13.2-37.4)
[2016-11-05 17:58] LABS: FOLATE 14.4 NG/ML
== END ==
LOC: M LAB REF 17:05
PROVIDERS: ATTEND Internal Medicine Nephrology
DX: D53.1 Other megaloblastic anemias, not elsewhere classified (principal)

== ENCOUNTER → 2016-11-30 | Outpatient (REF) | payer MEDICARE, OTHER | LOC: M LAB REF 14:16 | PROVIDERS: ATTEND Internal Medicine Nephrology | DX: D53.1 Other megaloblastic anemias, not elsewhere classified (principal) ==

== ENCOUNTER → 2017-02-02 | Outpatient (REF) | payer MEDICARE, OTHER ==
[2017-02-02 14:04] LABS: BASO # 0.1 10^3/uL (0.0-0.2); EOS # 0.2 10^3/uL (0.0-0.50); EOS % 3.4 % (0.0-3.0); IMMATURE GRANULOCYTE % 0.2 % (0-0); LYMPH # 1.5 10^3/uL (1.5-4.5); LYMPH % 30.4 % (24.0-44.0); MEAN CORPUSCULAR HEMOGLOBIN 33.9 pg (27.0-33.0); MEAN CORPUSCULAR HGB CONC 32.7 g/dl (32.0-36.5); MEAN CORPUSCULAR VOLUME 103.5 fl (80.0-96.0); MONO # 0.5 10^3/uL (0.0-0.8); MONO % 8.9 % (0.0-5.0); NEUTROPHILS # 2.8 10^3/uL (1.8-7.7); NEUTROPHILS % 56.1 % (36.0-66.0); PLATELET COUNT, AUTOMATED 254 10^3/uL (150-450); RED CELL DISTRIBUTION WIDTH 13.7 % (11.5-14.5)
[2017-02-02 14:27] LABS: ALBUMIN 3.6 GM/DL (3.2-5.2); ALBUMIN/GLOBULIN RATIO 1.03 (1.00-1.93); BILIRUBIN,TOTAL 0.2 MG/DL (0.2-1.0); CALCIUM LEVEL 9.1 MG/DL (8.8-10.2); CREATININE FOR GFR 1.2 MG/DL (0.55-1.02); GLOMERULAR FILTRATION RATE 47.4 (>45); PERCENT SATURATION 27.9 % (13.2-45.0); POTASSIUM SERUM 4.6 MEQ/L (3.5-5.1); TOTAL PROTEIN 7.1 GM/DL (6.4-8.2)
== END ==
LOC: M SFHCADAM 11:02
PROVIDERS: ATTEND Physician Assistant Medical
DX: I25.10 Atherosclerotic heart disease of native coronary artery without angina pectoris (principal); N18.3 Chronic kidney disease, stage 3 (moderate); I50.32 Chronic diastolic (congestive) heart failure; E11.9 Type 2 diabetes mellitus without complications; Z23 Encounter for immunization
CPT/HCPCS: 80053; 80061; 82306; 82728; 83036; 83550; 83735; 84443; 85025; 90662; G0008

== ENCOUNTER 2017-02-17 12:39 | Outpatient (RCR) | payer MEDICARE, OTHER | END 2017-03-11 | LOC: M CR 12:39 | PROVIDERS: ATTEND Internal Medicine Cardiovascular Disease | DX: Z51.89 Encounter for other specified aftercare (principal); I25.10 Atherosclerotic heart disease of native coronary artery without angina pectoris; Z95.1 Presence of aortocoronary bypass graft ==

== ENCOUNTER → 2017-03-02 | Outpatient (REF) | payer MEDICARE, OTHER | LOC: M LAB REF 16:50 | PROVIDERS: ATTEND Internal Medicine Nephrology | DX: R19.7 Diarrhea, unspecified (principal) ==

== ENCOUNTER 2017-03-12 09:19 | Outpatient (RCR) | payer MEDICARE, OTHER | END 2017-04-11 | LOC: M CR 09:19 | DX: Z95.1 Presence of aortocoronary bypass graft (principal); I25.10 Atherosclerotic heart disease of native coronary artery without angina pectoris ==

== ENCOUNTER → 2017-04-07 | Outpatient (REF) | payer MEDICARE, OTHER | LOC: M LAB REF 16:24 | DX: A04.72 Enterocolitis due to Clostridium difficile, not specified as recurrent (principal) | CPT/HCPCS: 87493 ==

== ENCOUNTER 2017-04-22 17:55 | Emergency (ER) | payer MEDICARE, OTHER | END 2017-04-22 19:28 | disposition home or self-care (01) | LOC: M ED 17:55 | DX: Z86.19 Personal history of other infectious and parasitic diseases (principal); I50.9 Heart failure, unspecified; I25.2 Old myocardial infarction; I10 Essential (primary) hypertension; K21.9 Gastro-esophageal reflux disease without esophagitis; J45.909 Unspecified asthma, uncomplicated; J44.9 Chronic obstructive pulmonary disease, unspecified; N18.9 Chronic kidney disease, unspecified; F41.9 Anxiety disorder, unspecified; Z95.1 Presence of aortocoronary bypass graft; Z79.82 Long term (current) use of aspirin; Z79.4 Long term (current) use of insulin; Z79.899 Other long term (current) drug therapy; Z88.5 Allergy status to narcotic agent; Z88.2 Allergy status to sulfonamides | CPT/HCPCS: 99283 ==

== ENCOUNTER → 2017-07-26 | Outpatient (CLI) | payer MEDICARE, OTHER | LOC: M ADAMS 15:14 | DX: M51.36 Other intervertebral disc degeneration, lumbar region (principal); M43.16 Spondylolisthesis, lumbar region; M25.711 Osteophyte, right shoulder; M25.712 Osteophyte, left shoulder; M25.511 Pain in right shoulder; M25.512 Pain in left shoulder; M54.5 Low back pain | CPT/HCPCS: 72072 ==

== ENCOUNTER 2017-08-16 08:56 | Day surgery (SDC) | payer MEDICARE, OTHER ==
[2017-08-16] MEDS ORDERED: PROPOFOL 200 MG/20 ML VIAL As Ordered (09:01)
[2017-08-16] MEDS: NS 1,000 ML IV (09:15)
[2017-08-16 09:42] LABS: BEDSIDE GLUCOSE 197 MG/DL (80-115)
== END 2017-08-16 11:15 | disposition home or self-care (01) ==
LOC: M OPP 08:56
DX: K62.5 Hemorrhage of anus and rectum (principal); R19.4 Change in bowel habit; K64.0 First degree hemorrhoids; K57.30 Diverticulosis of large intestine without perforation or abscess without bleeding; R10.13 Epigastric pain; R12 Heartburn; K22.8 Other specified diseases of esophagus; K31.89 Other diseases of stomach and duodenum; K44.9 Diaphragmatic hernia without obstruction or gangrene; R00.8 Other abnormalities of heart beat; I48.91 Unspecified atrial fibrillation; I25.10 Atherosclerotic heart disease of native coronary artery without angina pectoris; I25.2 Old myocardial infarction; I12.9 Hypertensive chronic kidney disease with stage 1 through stage 4 chronic kidney disease, or unspecified chronic kidney disease; E78.5 Hyperlipidemia, unspecified; E10.9 Type 1 diabetes mellitus without complications; E03.9 Hypothyroidism, unspecified; K21.9 Gastro-esophageal reflux disease without esophagitis; R11.2 Nausea with vomiting, unspecified; D64.9 Anemia, unspecified; R19.7 Diarrhea, unspecified; Z86.19 Personal history of other infectious and parasitic diseases; M19.90 Unspecified osteoarthritis, unspecified site; R21 Rash and other nonspecific skin eruption; F32.9 Major depressive disorder, single episode, unspecified; F41.9 Anxiety disorder, unspecified; G62.9 Polyneuropathy, unspecified; J45.909 Unspecified asthma, uncomplicated; N18.9 Chronic kidney disease, unspecified; Z95.1 Presence of aortocoronary bypass graft; Z87.891 Personal history of nicotine dependence; Z88.5 Allergy status to narcotic agent; Z88.2 Allergy status to sulfonamides; Z91.048 Other nonmedicinal substance allergy status; Z79.82 Long term (current) use of aspirin; Z79.899 Other long term (current) drug therapy; Z79.4 Long term (current) use of insulin; Z80.1 Family history of malignant neoplasm of trachea, bronchus and lung
CPT/HCPCS: 45380

== ENCOUNTER → 2017-08-18 | Outpatient (CLI) | payer MEDICARE, OTHER | LOC: M WHC 12:58 | DX: Z12.31 Encounter for screening mammogram for malignant neoplasm of breast (principal) | CPT/HCPCS: 77067 ==

== ENCOUNTER 2017-12-15 17:18 | Inpatient (IN) | payer MEDICARE, OTHER ==
[2017-12-15 18:29] LABS: BASO % 0.5 % (0.0-1.0); EOS # 0.1 10^3/uL (0.0-0.50); HEMATOCRIT 33.4 % (36.0-47.0); IMMATURE GRANULOCYTE % 0.3 % (0-3.0); LYMPH % 17.4 % (24.0-44.0); MEAN CORPUSCULAR HEMOGLOBIN 32.4 pg (27.0-33.0); MEAN CORPUSCULAR HGB CONC 32.9 g/dl (32.0-36.5); MEAN CORPUSCULAR VOLUME 98.5 fl (80.0-96.0); MONO # 0.6 10^3/uL (0.0-0.8); MONO % 10.7 % (0.0-5.0); NEUTROPHILS # 4.1 10^3/uL (1.8-7.7); NEUTROPHILS % 69.1 % (36.0-66.0); PLATELET COUNT, AUTOMATED 297 10^3/uL (150-450); RED BLOOD COUNT 3.39 10^6/uL (4.00-5.40); RED CELL DISTRIBUTION WIDTH 13.9 % (11.5-14.5); WHITE BLOOD COUNT 5.9 10^3/uL (4.0-10.0)
[2017-12-15 18:31] LABS: VENOUS BASE EXCESS 0.4 (-2.0-2.0); VENOUS HCO3 26.2 MEQ/L (23.0-27.0); VENOUS O2 SATURATION 79.6 % (60.0-80.0); VENOUS PARTIAL PRESSURE CO2 47.6 mmHg (38.0-50.0); VENOUS PARTIAL PRESSURE O2 47.6 mmHg (30.0-50.0); VENOUS PH 7.359 UNITS (7.330-7.430); VENOUS STANDARD HCO3 24.5 MEQ/L; VENOUS TOTAL CO2 27.7 MEQ/L (24.0-28.0)
[2017-12-15 18:41] LABS: INR 0.94; PROTHROMBIN TIME 12.7 SECONDS (12.1-14.4)
[2017-12-15 19:03] LABS: ALBUMIN 3.6 GM/DL (3.2-5.2); ALBUMIN/GLOBULIN RATIO 0.95 (1.00-1.93); ALKALINE PHOSPHATASE 160 U/L (45-117); ANION GAP 10 MEQ/L (8-16); BILIRUBIN,DIRECT 0.2 MG/DL (0.0-0.2); BILIRUBIN,TOTAL 0.7 MG/DL (0.2-1.0); BLOOD UREA NITROGEN 17 MG/DL (7-18); CALCIUM LEVEL 8.9 MG/DL (8.8-10.2); CARBON DIOXIDE LEVEL 27 MEQ/L (21-32); CHLORIDE LEVEL 106 MEQ/L (98-107); CREATININE FOR GFR 1.48 MG/DL (0.55-1.30); GLOMERULAR FILTRATION RATE 37.1 (>39); GLUCOSE, FASTING 90 MG/DL (70-100); POTASSIUM SERUM 4.2 MEQ/L (3.5-5.1); SODIUM LEVEL 143 MEQ/L (136-145); TOTAL PROTEIN 7.4 GM/DL (6.4-8.2); TROPONIN I < 0.02 NG/ML (< 0.10)
[2017-12-15 19:05] LABS: LACTIC ACID SEPSIS PROTOCOL 1.3 MMOL/L (0.4-2.0)
[2017-12-15 19:12] LABS: ALT/SGPT 54 U/L (12-78); AST/SGOT 37 U/L (7-37); CK-MB VALUE MASS 1.1 NG/ML (<3.6); CPK CREATINE PHOSPHOKINASE 119 U/L (26-192); MB/CK RELATIVE INDEX 0.92 (< OR =4); NT-PRO BNP 5280 PG/ML (<125)
[2017-12-15] MEDS: IPRATROPIUM 0.5MG/ALBUTEROL 2.5MG INH SOL UD 3ML (DUONEB)(J7620) NEB ×3 (19:26→22:00)
[2017-12-15] MEDS ORDERED: ISOVUE-370 76% 100ML VIAL (Q9967) As Ordered (20:09)
[2017-12-15] MEDS: ASPIRIN 81 MG CHEW TABLET PO (21:09)
[2017-12-15] MEDS: methylPREDNISolone INJ 125 MG/2 ML VIAL (J2930) IV (21:09)
[2017-12-15] MEDS: NITROGLYCERIN 0.4 MG SUBL TABLET SL ×2 (21:09→22:12)
[2017-12-15] MEDS: MORPHINE 4 MG/ML 1ML VIAL/SYRINGE (J2270) IV (22:44)
[2017-12-15] MEDS ORDERED: ACETAMINOPHEN TAB 650MG DOSE (2X325MG) PO (23:00)
[2017-12-15] MEDS ORDERED: MORPHINE 4 MG/ML 1ML VIAL/SYRINGE (J2270) IV (23:00)
[2017-12-15] MEDS ORDERED: DEXTROSE 50% 50 ML SYRINGE IV (23:45)
[2017-12-15] MEDS ORDERED: GLUCOSE 4 GM CHEW TABLET PO (23:45)
[2017-12-15] MEDS ORDERED: GLUCAGON FOR INJ 1 MG VIAL (J1610) SC (23:45)
[2017-12-16] MEDS ORDERED: COLCHICINE 0.6 MG TAB PO (00:15)
[2017-12-16] MEDS ORDERED: diazePAM 5 MG TAB PO (00:15)
[2017-12-16 01:07] LABS: TROPONIN I < 0.02 NG/ML (< 0.10)
[2017-12-16 01:09] LABS: BEDSIDE GLUCOSE 276 MG/DL (83-110)
[2017-12-16] MEDS: ATORVASTATIN 20 MG TAB PO ×2 (01:16→20:24)
[2017-12-16] MEDS: METOPROLOL TART 25 MG TABLET PO ×3 (01:16→20:24)
[2017-12-16] MEDS: FUROSEMIDE 40 MG/4 ML VIAL (J1940) IV ×3 (01:16→20:25)
[2017-12-16] MEDS: HumaLOG INSULIN (NovoLOG) PER UNIT SC ×5 (01:17→20:41)
[2017-12-16] MEDS: diazePAM 5 MG TAB PO ×3 (01:18→22:34)
[2017-12-16] MEDS: LEVOTHYROXINE 25MCG TABLET (0.025MG) PO (06:31)
[2017-12-16 06:54] LABS: HEMATOCRIT 34.2 % (36.0-47.0); HEMOGLOBIN 11.1 g/dl (12.0-15.5); MEAN CORPUSCULAR HEMOGLOBIN 32.6 pg (27.0-33.0); MEAN CORPUSCULAR HGB CONC 32.5 g/dl (32.0-36.5); MEAN CORPUSCULAR VOLUME 100.6 fl (80.0-96.0); PLATELET COUNT, AUTOMATED 279 10^3/uL (150-450); RED CELL DISTRIBUTION WIDTH 13.9 % (11.5-14.5); WHITE BLOOD COUNT 6.5 10^3/uL (4.0-10.0)
[2017-12-16 07:17] LABS: ANION GAP 16 MEQ/L (8-16); BLOOD UREA NITROGEN 22 MG/DL (7-18); CALCIUM LEVEL 9.1 MG/DL (8.8-10.2); CARBON DIOXIDE LEVEL 23 MEQ/L (21-32); CHLORIDE LEVEL 102 MEQ/L (98-107); CREATININE FOR GFR 1.84 MG/DL (0.55-1.30); GLOMERULAR FILTRATION RATE 28.9 (>39); GLUCOSE, FASTING 323 MG/DL (70-100); POTASSIUM SERUM 4.4 MEQ/L (3.5-5.1); SODIUM LEVEL 141 MEQ/L (136-145); TROPONIN I < 0.02 NG/ML (< 0.10)
[2017-12-16 07:42] LABS: BEDSIDE GLUCOSE 353 MG/DL (83-110)
[2017-12-16] MEDS: OMEPRAZOLE 20 MG CAP PO (08:27)
[2017-12-16] MEDS: APIXABAN 5 MG TAB (ELIQUIS) PO ×2 (08:27→20:24)
[2017-12-16] MEDS: cloNIDine 0.1 MG TAB PO (08:27)
[2017-12-16] MEDS: ASPIRIN 81 MG ENTERIC TAB PO (08:28)
[2017-12-16] MEDS: SENOKOT S TAB PO ×2 (08:28→20:24)
[2017-12-16] MEDS: FAMOTIDINE 20 MG TAB PO (08:29)
[2017-12-16] MEDS: amLODIPine 10 MG TAB PO (08:30)
[2017-12-16] MEDS: PANTOPRAZOLE 40MG TAB (PROTONIX) PO (08:30)
[2017-12-16] MEDS ORDERED: VITAMIN E 400 INTERNATIONAL UNITS CAP PO (09:00)
[2017-12-16] MEDS: LIDOCAINE 2% JELLY 30 ML TOP ×2 (09:00→20:26)
[2017-12-16] MEDS: HumuLIN N INSULIN (NovoLIN N) PER UNIT SC ×2 (09:53→20:40)
[2017-12-16] MEDS: FEBUXOSTAT 40 MG TABLET (ULORIC) PO (10:43)
[2017-12-16 13:06] LABS: BEDSIDE GLUCOSE 294 MG/DL (83-110)
[2017-12-16] MEDS: VITAMIN E 400 INTERNATIONAL UNITS CAP PO (13:12)
[2017-12-16] MEDS: ALBUTEROL SULFATE 2.5 MG/0.5 ML INH NEB SOLN INH (15:02)
[2017-12-16 15:36] LABS: TROPONIN I < 0.02 NG/ML (< 0.10)
[2017-12-16 17:09] LABS: BEDSIDE GLUCOSE 244 MG/DL (83-110)
[2017-12-16] MEDS: zolPIDEM CR 6.25MG TABLET (AMBIEN CR) PO ×2 (20:25→22:34)
[2017-12-16 20:33] LABS: BEDSIDE GLUCOSE 263 MG/DL (83-110)
[2017-12-16] MEDS: OXYMETAZOLINE NASAL SPRAY (AFRIN) (22:34)
[2017-12-16] MEDS: ONDANSETRON 4 MG TAB (S0181) PO (23:09)
[2017-12-17] MEDS: LEVOTHYROXINE 25MCG TABLET (0.025MG) PO (05:29)
[2017-12-17 05:40] LABS: HEMATOCRIT 31.8 % (36.0-47.0); HEMOGLOBIN 10.3 g/dl (12.0-15.5); MEAN CORPUSCULAR HEMOGLOBIN 32.6 pg (27.0-33.0); MEAN CORPUSCULAR HGB CONC 32.4 g/dl (32.0-36.5); MEAN CORPUSCULAR VOLUME 100.6 fl (80.0-96.0); PLATELET COUNT, AUTOMATED 241 10^3/uL (150-450); RED BLOOD COUNT 3.16 10^6/uL (4.00-5.40); RED CELL DISTRIBUTION WIDTH 13.8 % (11.5-14.5); WHITE BLOOD COUNT 9.2 10^3/uL (4.0-10.0)
[2017-12-17 05:53] LABS: ANION GAP 9 MEQ/L (8-16); BLOOD UREA NITROGEN 31 MG/DL (7-18); CALCIUM LEVEL 8.3 MG/DL (8.8-10.2); CARBON DIOXIDE LEVEL 28 MEQ/L (21-32); CHLORIDE LEVEL 104 MEQ/L (98-107); CREATININE FOR GFR 1.57 MG/DL (0.55-1.30); GLOMERULAR FILTRATION RATE 34.7 (>39); GLUCOSE, FASTING 156 MG/DL (70-100); POTASSIUM SERUM 4.3 MEQ/L (3.5-5.1); SODIUM LEVEL 141 MEQ/L (136-145)
[2017-12-17] MEDS: amLODIPine 10 MG TAB PO (08:33)
[2017-12-17] MEDS: PANTOPRAZOLE 40MG TAB (PROTONIX) PO (08:33)
[2017-12-17] MEDS: SENOKOT S TAB PO ×2 (08:34→21:33)
[2017-12-17] MEDS: OMEPRAZOLE 20 MG CAP PO (08:34)
[2017-12-17] MEDS: APIXABAN 5 MG TAB (ELIQUIS) PO ×2 (08:34→21:32)
[2017-12-17] MEDS: FAMOTIDINE 20 MG TAB PO (08:34)
[2017-12-17] MEDS: cloNIDine 0.1 MG TAB PO (08:34)
[2017-12-17] MEDS: METOPROLOL TART 25 MG TABLET PO ×2 (08:34→21:33)
[2017-12-17] MEDS: ASPIRIN 81 MG ENTERIC TAB PO (08:34)
[2017-12-17] MEDS: FEBUXOSTAT 40 MG TABLET (ULORIC) PO (08:34)
[2017-12-17] MEDS: HumaLOG INSULIN (NovoLOG) PER UNIT SC ×4 (08:35→21:34)
[2017-12-17] MEDS: HumuLIN N INSULIN (NovoLIN N) PER UNIT SC ×2 (08:35→21:34)
[2017-12-17] MEDS: PNEUMOCOCCAL VACCINE 0.5ML SYRINGE(90732) PNEUMOVAX 23 IM (08:36)
[2017-12-17] MEDS: INFLUENZA VIRUS VACCINE HIGH DOSE 0.5 ML SYRINGE (90662) IM (08:37)
[2017-12-17] MEDS: LIDOCAINE 2% JELLY 30 ML TOP ×2 (08:38→21:34)
[2017-12-17] MEDS: FUROSEMIDE 40 MG/4 ML VIAL (J1940) IV ×2 (08:53→21:34)
[2017-12-17] MEDS ORDERED: PREVNAR 13 VACCINE SYRINGE (CPT CODE:90670) IM (09:00)
[2017-12-17 11:33] LABS: BEDSIDE GLUCOSE 172 MG/DL (83-110)
[2017-12-17] MEDS: VITAMIN E 400 INTERNATIONAL UNITS CAP PO (11:42)
[2017-12-17 16:43] LABS: BEDSIDE GLUCOSE 184 MG/DL (83-110)
[2017-12-17] MEDS: ATORVASTATIN 20 MG TAB PO (21:33)
[2017-12-17 21:37] LABS: BEDSIDE GLUCOSE 172 MG/DL (83-110)
[2017-12-17] MEDS: diazePAM 5 MG TAB PO (23:59)
[2017-12-17] MEDS: zolPIDEM CR 6.25MG TABLET (AMBIEN CR) PO (23:59)
[2017-12-18 05:12] LABS: HEMATOCRIT 32.4 % (36.0-47.0); HEMOGLOBIN 10.3 g/dl (12.0-15.5); MEAN CORPUSCULAR HGB CONC 31.8 g/dl (32.0-36.5); MEAN CORPUSCULAR VOLUME 100.6 fl (80.0-96.0); PLATELET COUNT, AUTOMATED 246 10^3/uL (150-450); RED BLOOD COUNT 3.22 10^6/uL (4.00-5.40); RED CELL DISTRIBUTION WIDTH 13.7 % (11.5-14.5); WHITE BLOOD COUNT 7.5 10^3/uL (4.0-10.0)
[2017-12-18 05:27] LABS: ANION GAP 7 MEQ/L (8-16); BLOOD UREA NITROGEN 37 MG/DL (7-18); CALCIUM LEVEL 9.1 MG/DL (8.8-10.2); CARBON DIOXIDE LEVEL 30 MEQ/L (21-32); CHLORIDE LEVEL 105 MEQ/L (98-107); CREATININE FOR GFR 1.36 MG/DL (0.55-1.30); GLOMERULAR FILTRATION RATE 40.9 (>39); GLUCOSE, FASTING 101 MG/DL (70-100); POTASSIUM SERUM 3.7 MEQ/L (3.5-5.1); SODIUM LEVEL 142 MEQ/L (136-145)
[2017-12-18] MEDS: LEVOTHYROXINE 25MCG TABLET (0.025MG) PO (05:49)
[2017-12-18] MEDS: HumuLIN N INSULIN (NovoLIN N) PER UNIT SC (08:28)
[2017-12-18] MEDS: HumaLOG INSULIN (NovoLOG) PER UNIT SC (08:28)
[2017-12-18] MEDS: FAMOTIDINE 20 MG TAB PO (08:29)
[2017-12-18] MEDS: FEBUXOSTAT 40 MG TABLET (ULORIC) PO (08:29)
[2017-12-18] MEDS: ASPIRIN 81 MG ENTERIC TAB PO (08:29)
[2017-12-18] MEDS: OMEPRAZOLE 20 MG CAP PO (08:29)
[2017-12-18] MEDS: APIXABAN 5 MG TAB (ELIQUIS) PO (08:29)
[2017-12-18] MEDS: FUROSEMIDE 20 MG TAB PO (08:29)
[2017-12-18] MEDS: PANTOPRAZOLE 40MG TAB (PROTONIX) PO (08:30)
[2017-12-18] MEDS: LIDOCAINE 2% JELLY 30 ML TOP (08:30)
[2017-12-18] MEDS: SENOKOT S TAB PO (08:30)
[2017-12-18] MEDS: cloNIDine 0.1 MG TAB PO (08:36)
[2017-12-18] MEDS: amLODIPine 10 MG TAB PO (08:36)
[2017-12-18] MEDS: METOPROLOL TART 25 MG TABLET PO (08:37)
[2017-12-18] MEDS: VITAMIN E 400 INTERNATIONAL UNITS CAP PO (11:47)
[2017-12-21] MEDS ORDERED: VITAMIN D 50,000 UNITS CAPSULE (ERGOCALCIFEROL 1.25MG) PO (09:00)
== END 2017-12-18 12:26 | disposition home or self-care (01) | DRG 291 ==
LOC: M PCU 12-16 14:01 → M ED 17:18 → M ED INP 22:56
DX: I13.0 Hypertensive heart and chronic kidney disease with heart failure and stage 1 through stage 4 chronic kidney disease, or unspecified chronic kidney disease (principal); I50.33 Acute on chronic diastolic (congestive) heart failure; I48.0 Paroxysmal atrial fibrillation; N18.3 Chronic kidney disease, stage 3 (moderate); I25.10 Atherosclerotic heart disease of native coronary artery without angina pectoris; E78.5 Hyperlipidemia, unspecified; E11.9 Type 2 diabetes mellitus without complications; M10.9 Gout, unspecified; F41.9 Anxiety disorder, unspecified; J44.9 Chronic obstructive pulmonary disease, unspecified; Z95.1 Presence of aortocoronary bypass graft; Z88.2 Allergy status to sulfonamides; Z88.5 Allergy status to narcotic agent; Z79.82 Long term (current) use of aspirin; Z79.899 Other long term (current) drug therapy; I25.2 Old myocardial infarction

== ENCOUNTER → 2017-12-27 | Outpatient (REF) | payer MEDICARE, OTHER ==
[2017-12-27 16:20] LABS: ALBUMIN 3.3 GM/DL (3.2-5.2); ANION GAP 10 MEQ/L (8-16); BLOOD UREA NITROGEN 15 MG/DL (7-18); CALCIUM LEVEL 9.1 MG/DL (8.8-10.2); CARBON DIOXIDE LEVEL 26 MEQ/L (21-32); CHLORIDE LEVEL 109 MEQ/L (98-107); CREATININE FOR GFR 1.16 MG/DL (0.55-1.30); GLOMERULAR FILTRATION RATE 49.2 (>39); GLUCOSE, FASTING 142 MG/DL (70-100); NT-PRO BNP 3167 PG/ML (<125); PHOSPHORUS LEVEL 2.5 MG/DL (2.5-4.9); POTASSIUM SERUM 4.6 MEQ/L (3.5-5.1); SODIUM LEVEL 145 MEQ/L (136-145)
== END ==
LOC: M SFHCADAM 14:02
DX: I50.33 Acute on chronic diastolic (congestive) heart failure (principal)
CPT/HCPCS: 80069

== ENCOUNTER → 2017-12-31 | Outpatient (REF) | payer MEDICARE, OTHER ==
[2017-12-31 16:03] LABS: ALBUMIN 3.4 GM/DL (3.2-5.2); ANION GAP 9 MEQ/L (8-16); BLOOD UREA NITROGEN 14 MG/DL (7-18); CALCIUM LEVEL 8.4 MG/DL (8.8-10.2); CARBON DIOXIDE LEVEL 32 MEQ/L (21-32); CHLORIDE LEVEL 103 MEQ/L (98-107); CREATININE FOR GFR 1.37 MG/DL (0.55-1.30); GLOMERULAR FILTRATION RATE 40.6 (>39); GLUCOSE, FASTING 116 MG/DL (70-100); POTASSIUM SERUM 3.9 MEQ/L (3.5-5.1); SODIUM LEVEL 144 MEQ/L (136-145)
== END ==
LOC: M SFHCADAM 11:57
DX: I50.32 Chronic diastolic (congestive) heart failure (principal); E11.9 Type 2 diabetes mellitus without complications
CPT/HCPCS: 80069

== ENCOUNTER 2018-01-26 22:01 | Inpatient (IN) | payer MEDICARE, OTHER ==
[2018-01-26 22:27] LABS: BASO % 0.6 % (0.0-1.0); EOS # 0.1 10^3/uL (0.0-0.50); EOS % 1.8 % (0.0-3.0); HEMATOCRIT 34.8 % (36.0-47.0); HEMOGLOBIN 11.4 g/dl (12.0-15.5); IMMATURE GRANULOCYTE % 0.3 % (0-3.0); LYMPH # 1.1 10^3/uL (1.5-4.5); LYMPH % 17.1 % (24.0-44.0); MEAN CORPUSCULAR HEMOGLOBIN 32.3 pg (27.0-33.0); MEAN CORPUSCULAR HGB CONC 32.8 g/dl (32.0-36.5); MEAN CORPUSCULAR VOLUME 98.6 fl (80.0-96.0); MONO # 0.5 10^3/uL (0.0-0.8); NEUTROPHILS # 4.8 10^3/uL (1.8-7.7); NEUTROPHILS % 72.2 % (36.0-66.0); PLATELET COUNT, AUTOMATED 253 10^3/uL (150-450); RED BLOOD COUNT 3.53 10^6/uL (4.00-5.40); RED CELL DISTRIBUTION WIDTH 12.8 % (11.5-14.5); WHITE BLOOD COUNT 6.6 10^3/uL (4.0-10.0)
[2018-01-26 23:00] LABS: ANION GAP 8 MEQ/L (8-16); BLOOD UREA NITROGEN 18 MG/DL (7-18); CARBON DIOXIDE LEVEL 30 MEQ/L (21-32); CHLORIDE LEVEL 104 MEQ/L (98-107); CPK CREATINE PHOSPHOKINASE 87 U/L (26-192); CREATININE FOR GFR 1.11 MG/DL (0.55-1.30); GLOMERULAR FILTRATION RATE 51.7 (>39); GLUCOSE, FASTING 204 MG/DL (70-100); MB/CK RELATIVE INDEX 1.61 (< OR =4); NT-PRO BNP 5341 PG/ML (<125); POTASSIUM SERUM 3.2 MEQ/L (3.5-5.1); SODIUM LEVEL 142 MEQ/L (136-145); TROPONIN I < 0.02 NG/ML (< 0.10)
[2018-01-26 23:02] LABS: ABG HCO3 24.4 MEQ/L (22.0-26.0); ABG O2 SATURATION 94.5 % (95.0-99.0); ABG PARTIAL PRESSURE CO2 38.9 mmHg (35.0-45.0); ABG PARTIAL PRESSURE O2 77.1 mmHg (75.0-100.0); ABG STANDARD HCO3 24.5 MEQ/L (22.0-26.0); ABG TOTAL CO2 25.6 MEQ/L (23.0-31.0); ABG pH (ARTERIAL) 7.416 UNITS (7.350-7.450)
[2018-01-26] MEDS: FUROSEMIDE 100 MG/10 ML VIAL (J1940) IV (23:24)
[2018-01-26] MEDS: NITROGLYCERIN 2% OINT 1 GM *U/D* PKT TOP (23:26)
[2018-01-27] MEDS ORDERED: DEXTROSE 50% 50 ML SYRINGE IV (01:45)
[2018-01-27] MEDS ORDERED: tiZANidine 4 MG TAB PO (01:45)
[2018-01-27] MEDS ORDERED: ACETAMINOPHEN TAB 650MG DOSE (2X325MG) PO (01:45)
[2018-01-27] MEDS ORDERED: ONDANSETRON 4 MG TAB (S0181) PO (01:45)
[2018-01-27] MEDS ORDERED: GLUCAGON FOR INJ 1 MG VIAL (J1610) SC (01:45)
[2018-01-27] MEDS ORDERED: COLCHICINE 0.6 MG TAB PO (01:45)
[2018-01-27] MEDS ORDERED: GLUCOSE 4 GM CHEW TABLET PO (01:45)
[2018-01-27 06:53] LABS: HEMATOCRIT 34.8 % (36.0-47.0); HEMOGLOBIN 11.4 g/dl (12.0-15.5); MEAN CORPUSCULAR HGB CONC 32.8 g/dl (32.0-36.5); MEAN CORPUSCULAR VOLUME 97.8 fl (80.0-96.0); PLATELET COUNT, AUTOMATED 243 10^3/uL (150-450); RED BLOOD COUNT 3.56 10^6/uL (4.00-5.40); RED CELL DISTRIBUTION WIDTH 12.6 % (11.5-14.5); WHITE BLOOD COUNT 7.2 10^3/uL (4.0-10.0)
[2018-01-27] MEDS: LEVOTHYROXINE 25MCG TABLET (0.025MG) PO (07:02)
[2018-01-27 07:22] LABS: ANION GAP 7 MEQ/L (8-16); BLOOD UREA NITROGEN 17 MG/DL (7-18); CALCIUM LEVEL 8.6 MG/DL (8.8-10.2); CARBON DIOXIDE LEVEL 33 MEQ/L (21-32); CHLORIDE LEVEL 102 MEQ/L (98-107); CREATININE FOR GFR 1.14 MG/DL (0.55-1.30); GLOMERULAR FILTRATION RATE 50.2 (>39); GLUCOSE, FASTING 244 MG/DL (70-100); SODIUM LEVEL 142 MEQ/L (136-145); TROPONIN I 0.02 NG/ML (< 0.10)
[2018-01-27] MEDS: IPRATROPIUM 0.5MG/ALBUTEROL 2.5MG INH SOL UD 3ML (DUONEB)(J7620) NEB ×2 (07:31→11:32)
[2018-01-27 07:53] LABS: BEDSIDE GLUCOSE 206 MG/DL (83-110)
[2018-01-27] MEDS: HumaLOG INSULIN (NovoLOG) PER UNIT SC ×4 (08:31→21:00)
[2018-01-27] MEDS: SENOKOT S TAB PO ×3 (09:00→21:08)
[2018-01-27] MEDS ORDERED: LIDOCAINE 2% JELLY 30 ML TOP (09:00)
[2018-01-27] MEDS: METOPROLOL TART 25 MG TABLET PO ×2 (09:13→21:09)
[2018-01-27] MEDS: POTASSIUM CHLORIDE 10 MEQ SR TABLET PO ×4 (09:14→21:08)
[2018-01-27] MEDS: ASPIRIN 81 MG ENTERIC TAB PO (09:15)
[2018-01-27] MEDS: FUROSEMIDE 40 MG/4 ML VIAL (J1940) IV ×2 (09:15→17:17)
[2018-01-27] MEDS: diazePAM 5 MG TAB PO ×2 (09:15→21:08)
[2018-01-27] MEDS: OMEPRAZOLE 20 MG CAP PO (09:16)
[2018-01-27] MEDS: amLODIPine 10 MG TAB PO (09:17)
[2018-01-27] MEDS: FAMOTIDINE 20 MG TAB PO (09:17)
[2018-01-27] MEDS: APIXABAN 5 MG TAB (ELIQUIS) PO ×2 (09:17→21:08)
[2018-01-27] MEDS: cloNIDine 0.1 MG TAB PO (10:32)
[2018-01-27] MEDS: HumuLIN N INSULIN (NovoLIN N) PER UNIT SC ×2 (10:35→21:11)
[2018-01-27 12:18] LABS: BEDSIDE GLUCOSE 196 MG/DL (83-110)
[2018-01-27 12:21] LABS: ANION GAP 7 MEQ/L (8-16); BLOOD UREA NITROGEN 16 MG/DL (7-18); CALCIUM LEVEL 8.8 MG/DL (8.8-10.2); CARBON DIOXIDE LEVEL 33 MEQ/L (21-32); CHLORIDE LEVEL 101 MEQ/L (98-107); GLOMERULAR FILTRATION RATE 52.3 (>39); GLUCOSE, FASTING 196 MG/DL (70-100); MAGNESIUM LEVEL 1.1 MG/DL (1.8-2.4); POTASSIUM SERUM 3.1 MEQ/L (3.5-5.1); SODIUM LEVEL 141 MEQ/L (136-145)
[2018-01-27] MEDS: FEBUXOSTAT 40 MG TABLET (ULORIC) PO (12:31)
[2018-01-27] MEDS: VITAMIN E 400 INTERNATIONAL UNITS CAP PO (12:31)
[2018-01-27] MEDS: RAMIPRIL 1.25 MG CAP PO ×2 (13:19→21:24)
[2018-01-27] MEDS: OXYMETAZOLINE NASAL SPRAY (AFRIN) ×2 (13:33→21:25)
[2018-01-27 15:49] LABS: TROPONIN I < 0.02 NG/ML (< 0.10)
[2018-01-27 15:57] LABS: ANION GAP 10 MEQ/L (8-16); BLOOD UREA NITROGEN 20 MG/DL (7-18); CALCIUM LEVEL 8.4 MG/DL (8.8-10.2); CARBON DIOXIDE LEVEL 30 MEQ/L (21-32); CHLORIDE LEVEL 102 MEQ/L (98-107); CREATININE FOR GFR 1.18 MG/DL (0.55-1.30); GLOMERULAR FILTRATION RATE 48.2 (>39); GLUCOSE, FASTING 187 MG/DL (70-100); POTASSIUM SERUM 3.4 MEQ/L (3.5-5.1); SODIUM LEVEL 142 MEQ/L (136-145)
[2018-01-27 18:35] LABS: BEDSIDE GLUCOSE 253 MG/DL (83-110)
[2018-01-27] MEDS: MAGNESIUM OXIDE 400 MG TAB (MAG-OX) PO (18:55)
[2018-01-27 21:01] LABS: BEDSIDE GLUCOSE 221 MG/DL (83-110)
[2018-01-27] MEDS: ATORVASTATIN 20 MG TAB PO (21:08)
[2018-01-27] MEDS: PARoxetine 20 MG TAB PO (21:08)
[2018-01-27] MEDS: tiZANidine 4 MG TAB PO (21:24)
[2018-01-27] MEDS: zolPIDEM CR 6.25MG TABLET (AMBIEN CR) PO (21:25)
[2018-01-27] MEDS: SPIRONOLACTONE 25 MG TAB PO (21:25)
[2018-01-27 23:00] LABS: TROPONIN I < 0.02 NG/ML (< 0.10)
[2018-01-27 23:00] LABS: MAGNESIUM LEVEL 1.1 MG/DL (1.8-2.4)
[2018-01-28] MEDS: MAG SULF 1GM/100ML (MAG RUN) 1 GM in APPROPRIATE DILUENT 1 EA IV ×4 (04:22→07:24)
[2018-01-28 06:01] LABS: BASO % 0.7 % (0.0-1.0); EOS # 0.2 10^3/uL (0.0-0.50); EOS % 3.3 % (0.0-3.0); HEMATOCRIT 31.9 % (36.0-47.0); HEMOGLOBIN 10.4 g/dl (12.0-15.5); IMMATURE GRANULOCYTE % 0.4 % (0-3.0); LYMPH # 1.2 10^3/uL (1.5-4.5); LYMPH % 22.4 % (24.0-44.0); MEAN CORPUSCULAR HGB CONC 32.6 g/dl (32.0-36.5); MEAN CORPUSCULAR VOLUME 98.2 fl (80.0-96.0); MONO # 0.6 10^3/uL (0.0-0.8); MONO % 10.2 % (0.0-5.0); NEUTROPHILS # 3.5 10^3/uL (1.8-7.7); PLATELET COUNT, AUTOMATED 219 10^3/uL (150-450); RED BLOOD COUNT 3.25 10^6/uL (4.00-5.40); RED CELL DISTRIBUTION WIDTH 12.6 % (11.5-14.5); WHITE BLOOD COUNT 5.5 10^3/uL (4.0-10.0)
[2018-01-28] MEDS: LEVOTHYROXINE 25MCG TABLET (0.025MG) PO (06:04)
[2018-01-28 06:26] LABS: ANION GAP 8 MEQ/L (8-16); BLOOD UREA NITROGEN 31 MG/DL (7-18); CALCIUM LEVEL 8.7 MG/DL (8.8-10.2); CARBON DIOXIDE LEVEL 26 MEQ/L (21-32); CHLORIDE LEVEL 108 MEQ/L (98-107); CREATININE FOR GFR 1.39 MG/DL (0.55-1.30); GLOMERULAR FILTRATION RATE 39.9 (>39); GLUCOSE, FASTING 182 MG/DL (70-100); MAGNESIUM LEVEL 1.8 MG/DL (1.8-2.4); POTASSIUM SERUM 4.3 MEQ/L (3.5-5.1); SODIUM LEVEL 142 MEQ/L (136-145)
[2018-01-28] MEDS: HumuLIN N INSULIN (NovoLIN N) PER UNIT SC (08:32)
[2018-01-28] MEDS: APIXABAN 5 MG TAB (ELIQUIS) PO (08:33)
[2018-01-28] MEDS: FEBUXOSTAT 40 MG TABLET (ULORIC) PO (08:33)
[2018-01-28] MEDS: VITAMIN E 400 INTERNATIONAL UNITS CAP PO (08:33)
[2018-01-28] MEDS: HumaLOG INSULIN (NovoLOG) PER UNIT SC (08:33)
[2018-01-28] MEDS: ASPIRIN 81 MG ENTERIC TAB PO (08:34)
[2018-01-28] MEDS: cloNIDine 0.1 MG TAB PO (08:34)
[2018-01-28] MEDS: FAMOTIDINE 20 MG TAB PO (08:34)
[2018-01-28] MEDS: SENOKOT S TAB PO (08:34)
[2018-01-28] MEDS: diazePAM 5 MG TAB PO (08:34)
[2018-01-28] MEDS: OMEPRAZOLE 20 MG CAP PO (08:34)
[2018-01-28] MEDS: amLODIPine 10 MG TAB PO (08:35)
[2018-01-28] MEDS: SPIRONOLACTONE 25 MG TAB PO (08:37)
[2018-01-28] MEDS: MAGNESIUM OXIDE 400 MG TAB (MAG-OX) PO (08:37)
[2018-01-28] MEDS: FUROSEMIDE 40 MG/4 ML VIAL (J1940) IV (09:00)
[2018-01-28] MEDS: METOPROLOL TART 25 MG TABLET PO (09:00)
[2018-01-28 11:46] LABS: MAGNESIUM LEVEL 2.7 MG/DL (1.8-2.4)
[2018-02-01] MEDS ORDERED: VITAMIN D 50,000 UNITS CAPSULE (ERGOCALCIFEROL 1.25MG) PO (09:00)
== END 2018-01-28 11:07 | disposition home or self-care (01) | DRG 291 ==
LOC: M ED INP 01-27 02:42 → M PCU 01-27 14:40 → M ED 22:01
DX: I13.0 Hypertensive heart and chronic kidney disease with heart failure and stage 1 through stage 4 chronic kidney disease, or unspecified chronic kidney disease (principal); I50.33 Acute on chronic diastolic (congestive) heart failure; J96.00 Acute respiratory failure, unspecified whether with hypoxia or hypercapnia; E87.6 Hypokalemia; N18.3 Chronic kidney disease, stage 3 (moderate); E83.42 Hypomagnesemia; I48.2 Chronic atrial fibrillation; E11.9 Type 2 diabetes mellitus without complications; I25.10 Atherosclerotic heart disease of native coronary artery without angina pectoris; Z79.899 Other long term (current) drug therapy; Z79.01 Long term (current) use of anticoagulants; E78.5 Hyperlipidemia, unspecified; M10.9 Gout, unspecified; F41.9 Anxiety disorder, unspecified; J44.9 Chronic obstructive pulmonary disease, unspecified; Z88.2 Allergy status to sulfonamides; Z88.5 Allergy status to narcotic agent; E03.9 Hypothyroidism, unspecified; D50.9 Iron deficiency anemia, unspecified; R25.1 Tremor, unspecified; F32.9 Major depressive disorder, single episode, unspecified; I25.2 Old myocardial infarction; I35.0 Nonrheumatic aortic (valve) stenosis; K21.9 Gastro-esophageal reflux disease without esophagitis; M19.90 Unspecified osteoarthritis, unspecified site; Z79.82 Long term (current) use of aspirin

== ENCOUNTER → 2018-02-15 | Outpatient (REF) | payer MEDICARE, OTHER ==
[2018-02-15 15:42] LABS: ALBUMIN 3.9 GM/DL (3.2-5.2); ANION GAP 10 MEQ/L (8-16); BLOOD UREA NITROGEN 34 MG/DL (7-18); CALCIUM LEVEL 10.1 MG/DL (8.8-10.2); CARBON DIOXIDE LEVEL 26 MEQ/L (21-32); CHLORIDE LEVEL 102 MEQ/L (98-107); CREATININE FOR GFR 1.62 MG/DL (0.55-1.30); GLOMERULAR FILTRATION RATE 33.4 (>39); GLUCOSE, FASTING 279 MG/DL (70-100); MAGNESIUM LEVEL 1.8 MG/DL (1.8-2.4); PHOSPHORUS LEVEL 3.1 MG/DL (2.5-4.9); POTASSIUM SERUM 4.7 MEQ/L (3.5-5.1); SODIUM LEVEL 138 MEQ/L (136-145)
== END ==
LOC: M SFHCADAM 12:06
DX: I50.32 Chronic diastolic (congestive) heart failure (principal); E83.42 Hypomagnesemia; E11.22 Type 2 diabetes mellitus with diabetic chronic kidney disease; N18.3 Chronic kidney disease, stage 3 (moderate)
CPT/HCPCS: 83735

== ENCOUNTER → 2018-03-29 | Outpatient (REF) | payer MEDICARE, OTHER ==
[~2018-03-29] MED LIST changes: +AFRI0.052; +AFRI0.056; +ALBU83IN INH; +ALDA25TA2 PO; +ALEN35TA37 PO; +ALEN70SO PO; -AMLO10TA2 PO; +AMLO10TA5 PO; -AMLO5TAB2 PO; +AMLO5TAB6 PO; +CLON0.1D3 TOP; +ELIQ5TAB PO; +FAMO1TAB11 PO; +FAMO40TA3 PO; +FEBU40TA PO; +FURO20TA2 PO; +FURO40TA2 PO; +HYDR1CRE93 TOP; -LASI40TA PO; +LASI40TA9 PO; +LEVO25TA5 PO; +LIDO2JELLY TOP; +MAG400TA PO; +MEGA1CAP3 PO; +METO1TAB87 PO; +OMEG12003 PO; +POTA99TA PO; +PROAAER10 INH; +RAMI1CAP22 PO; -RAMI25CA PO; +TIZA-208 PO; +TIZA4CAP PO; +TRIA1CR80 TOP; -VITA1CAP40 PO; +VITA50005 PO; +[UNRECOGNIZED DRUG - OTHER] PO; +estrogen
[2018-03-29 20:04] LABS: BASO # 0.1 10^3/uL (0.0-0.2); BASO % 0.7 % (0.0-1.0); EOS # 0.1 10^3/uL (0.0-0.50); EOS % 2.1 % (0.0-3.0); HEMATOCRIT 36.7 % (36.0-47.0); HEMOGLOBIN 11.7 g/dl (12.0-15.5); LYMPH # 1.5 10^3/uL (1.5-4.5); LYMPH % 21.3 % (24.0-44.0); MEAN CORPUSCULAR HEMOGLOBIN 30.9 pg (27.0-33.0); MEAN CORPUSCULAR HGB CONC 31.9 g/dl (32.0-36.5); MEAN CORPUSCULAR VOLUME 96.8 fl (80.0-96.0); MONO # 0.6 10^3/uL (0.0-0.8); MONO % 9.1 % (0.0-5.0); NEUTROPHILS # 4.5 10^3/uL (1.8-7.7); NEUTROPHILS % 66.5 % (36.0-66.0); PLATELET COUNT, AUTOMATED 263 10^3/uL (150-450); RED BLOOD COUNT 3.79 10^6/uL (4.00-5.40); WHITE BLOOD COUNT 6.8 10^3/uL (4.0-10.0)
[2018-03-29 20:06] LABS: ALBUMIN 3.4 GM/DL (3.2-5.2); BILIRUBIN,TOTAL 0.3 MG/DL (0.2-1.0); CALCIUM LEVEL 8.9 MG/DL (8.8-10.2); CHOLESTEROL RISK RATIO 4.34 (<5); CREATININE FOR GFR 1.51 MG/DL (0.55-1.30); FREE T4 0.77 NG/DL (0.76-1.46); GLOMERULAR FILTRATION RATE 36.3 (>39); POTASSIUM SERUM 5.5 MEQ/L (3.5-5.1); THYROID STIMULATING HORMONE 3.17 uIU/ML (0.358-3.740); TOTAL 25(OH) VITAMIN D 41.8 NG/ML (30.0-100.0); TOTAL PROTEIN 6.9 GM/DL (6.4-8.2)
[2018-03-29 20:11] LABS: CREATININE, URINE 33.2 MG/DL; MALB URINE SIEMENS 48.6 MG/L; MAU/CREAT RATIO 146.3 MCG/MG (0.0-30.0)
[2018-03-29 20:12] LABS: HEMOGLOBIN A1c 9.9 %
== END ==
LOC: M SFHCADAM 15:28
PROVIDERS: ATTEND Physician Assistant Medical
DX: E78.49 Other hyperlipidemia (principal); I10 Essential (primary) hypertension; E11.9 Type 2 diabetes mellitus without complications; E55.9 Vitamin D deficiency, unspecified

== ENCOUNTER 2018-05-11 04:29 | Emergency (ER) | payer MEDICARE, OTHER ==
[2018-05-11] MEDS ORDERED: ACETAMINOPHEN 325 MG TAB PO ONE (06:15)
[2018-05-11] MEDS ORDERED: traMADol 50 MG TAB PO ONE (06:30)
[2018-05-11] MEDS ORDERED: MORPHINE 2 MG/ML 1ML SYRINGE (J2270) IM ONE (07:00)
--- NOTE | 2018-05-11 08:11 | REP ---
Clinical: Trauma. Technique: AP and lateral views of the right forearm. Findings: No obvious acute fracture or dislocation is appreciated. However, subtle injury involving the distal radius and wrist cannot definitively be excluded due to positioning. Evidence for peripheral vascular disease noted. No subcutaneous emphysema or radiodense foreign body. Impression: 1. No obvious acute fracture or dislocation. 2. Distal radius and wrist are incompletely evaluated and if warranted dedicated wrist series should be considered. Electronically Signed by Manjeet Livingston MD 05/11/2018 08:02 A
--- NOTE | 2018-05-11 08:16 | REP ---
Clinical: Trauma. Technique: AP, lateral, bilateral oblique views of the right wrist. Findings: Moderate age-related arthritic degenerative changes including subchondral sclerosis, small amounts of chondrocalcinosis in the carpal-ulnar space and generalized joint space narrowing primarily involving the carpometacarpal joints and radiocarpal joint line. Findings are most pronounced at the first carpometacarpal joint where subtle subluxation is also appreciated. There is a small corner fracture fragment just lateral to the first carpometacarpal joint arising either from the base of the first metacarpal bone or trapezium. Impression: 1. Small corner chip fracture just lateral to the first carpometacarpal joint arising in either from the base of the first metacarpal bone or trapezium. 2. Moderate arthritic degenerative changes. Electronically Signed by Manjeet Livingston MD 05/11/2018 08:07 A
[2018-05-11 08:45] VITALS: BP 170/83
== END 2018-05-11 08:50 | disposition home or self-care (01) ==
LOC: M ED 04:29
DX: S62.101A Fracture of unspecified carpal bone, right wrist, initial encounter for closed fracture (principal); W01.198A Fall on same level from slipping, tripping and stumbling with subsequent striking against other object, initial encounter; Y92.090 Kitchen in other non-institutional residence as the place of occurrence of the external cause; I12.9 Hypertensive chronic kidney disease with stage 1 through stage 4 chronic kidney disease, or unspecified chronic kidney disease; N18.9 Chronic kidney disease, unspecified; I48.91 Unspecified atrial fibrillation; E11.9 Type 2 diabetes mellitus without complications; K21.9 Gastro-esophageal reflux disease without esophagitis; J44.9 Chronic obstructive pulmonary disease, unspecified; D50.9 Iron deficiency anemia, unspecified; J30.1 Allergic rhinitis due to pollen; Z88.5 Allergy status to narcotic agent; Z88.8 Allergy status to other drugs, medicaments and biological substances; Z88.2 Allergy status to sulfonamides; Z79.899 Other long term (current) drug therapy; Z79.4 Long term (current) use of insulin; Z79.82 Long term (current) use of aspirin; Z79.01 Long term (current) use of anticoagulants
CPT/HCPCS: 73090; 73110; 96372; 99284; J2270

== ENCOUNTER → 2018-07-11 | Outpatient (REF) | payer MEDICARE, OTHER ==
[2018-07-11 19:57] LABS: BASO % 0.6 % (0.0-1.0); EOS # 0.2 10^3/uL (0.0-0.50); EOS % 2.5 % (0.0-3.0); HEMATOCRIT 36.1 % (36.0-47.0); HEMOGLOBIN 11.7 g/dl (12.0-15.5); LYMPH # 1.4 10^3/uL (1.5-4.5); MEAN CORPUSCULAR HEMOGLOBIN 32.4 pg (27.0-33.0); MEAN CORPUSCULAR HGB CONC 32.4 g/dl (32.0-36.5); MONO # 0.8 10^3/uL (0.0-0.8); MONO % 12.2 % (0.0-5.0); NEUTROPHILS # 4.1 10^3/uL (1.8-7.7); NEUTROPHILS % 63.5 % (36.0-66.0); PLATELET COUNT, AUTOMATED 276 10^3/uL (150-450); RED BLOOD COUNT 3.61 10^6/uL (4.00-5.40); WHITE BLOOD COUNT 6.5 10^3/uL (4.0-10.0)
[2018-07-11 20:15] LABS: ALBUMIN 3.5 GM/DL (3.2-5.2); BILIRUBIN,TOTAL 0.3 MG/DL (0.2-1.0); CALCIUM LEVEL 9.3 MG/DL (8.8-10.2); CREATININE FOR GFR 2.15 MG/DL (0.55-1.30); FREE T4 1.02 NG/DL (0.76-1.46); GLOMERULAR FILTRATION RATE 24.1 (>39); POTASSIUM SERUM 4.8 MEQ/L (3.5-5.1); THYROID STIMULATING HORMONE 3.81 uIU/ML (0.358-3.740); TOTAL PROTEIN 7.3 GM/DL (6.4-8.2)
[2018-07-11 20:21] LABS: HEMOGLOBIN A1c 7.9 %
== END ==
LOC: M SFHCADAM 15:35
PROVIDERS: ATTEND Physician Assistant Medical
DX: I11.0 Hypertensive heart disease with heart failure (principal); I50.32 Chronic diastolic (congestive) heart failure; E11.22 Type 2 diabetes mellitus with diabetic chronic kidney disease

== ENCOUNTER → 2019-02-07 | Outpatient (REF) | payer MEDICARE, OTHER ==
[~2019-02-07] MED LIST changes: -/INSUREG; -ALEN35TA37 PO; +ALEN35TA6 PO; -ASPI1TAB PO; +ASPI81TA26 PO; -FEBU40TA PO; +FEBU40TA4 PO; -MAGN400T PO; +MAGN400T3 PO; +NOVO1INJ2; -OMEP20CA3 PO; +OMEP20CA4 PO; -TIZA-208 PO; +TIZA4TAB4 PO
[2019-02-07 13:05] LABS: BASO % 0.8 % (0.0-1.0); EOS # 0.1 10^3/uL (0.0-0.5); EOS % 1.6 % (0.0-3.0); HEMATOCRIT 40.5 % (36.0-47.0); HEMOGLOBIN 13.1 g/dl (12.0-15.5); LYMPH # 0.7 10^3/uL (1.5-5.0); LYMPH % 13.2 % (24.0-44.0); MEAN CORPUSCULAR HEMOGLOBIN 33.4 pg (27.0-33.0); MEAN CORPUSCULAR HGB CONC 32.3 g/dl (32.0-36.5); MEAN CORPUSCULAR VOLUME 103.3 fl (80.0-96.0); MONO # 0.5 10^3/uL (0.0-0.8); MONO % 10.5 % (0.0-5.0); NEUTROPHILS # 3.8 10^3/uL (1.5-8.5); NEUTROPHILS % 73.5 % (36.0-66.0); PLATELET COUNT, AUTOMATED 276 10^3/uL (150-450); RED BLOOD COUNT 3.92 10^6/uL (4.00-5.40); WHITE BLOOD COUNT 5.1 10^3/uL (4.0-10.0)
[2019-02-07 13:16] LABS: CREATININE FOR GFR 1.64 MG/DL (0.55-1.30); GLOMERULAR FILTRATION RATE 32.9 (>39); POTASSIUM SERUM 3.5 MEQ/L (3.5-5.1)
[2019-02-07 13:17] LABS: ALBUMIN 3.5 GM/DL (3.2-5.2); BILIRUBIN,TOTAL 0.7 MG/DL (0.2-1.0); CALCIUM LEVEL 9.3 MG/DL (8.8-10.2); CHOLESTEROL RISK RATIO 2.875 (<5); MAGNESIUM LEVEL 1.1 MG/DL (1.8-2.4); THYROID STIMULATING HORMONE 3.64 uIU/ML (0.358-3.740); TOTAL PROTEIN 7.4 GM/DL (6.4-8.2)
[2019-02-07 13:19] LABS: TOTAL 25(OH) VITAMIN D 27.4 NG/ML (30.0-100.0)
[2019-02-07 13:45] LABS: MAU/CREAT RATIO 130.2 MCG/MG (0.0-30.0)
[2019-02-07 14:30] LABS: HEMOGLOBIN A1c 7.6 %
== END ==
LOC: M SFHCADAM 08:00
PROVIDERS: ATTEND Physician Assistant Medical
DX: M79.601 Pain in right arm (principal); D50.8 Other iron deficiency anemias; E03.9 Hypothyroidism, unspecified; E11.22 Type 2 diabetes mellitus with diabetic chronic kidney disease; E78.2 Mixed hyperlipidemia; E55.9 Vitamin D deficiency, unspecified

== ENCOUNTER → 2019-02-07 | Outpatient (CLI) | payer MEDICARE, OTHER ==
--- NOTE | 2019-02-07 09:31 | REP ---
Clinical: Right upper extremity pain. Technique: Two views of the right humerus. Findings: Calcific tendinopathy at the shoulder is suggested. The humerus is intact. No acute fracture dislocation. Surrounding soft tissues are unremarkable. Impression: Normal humerus. Calcific tendinopathy to the shoulder. Electronically Signed by Manjeet Livingston MD 02/07/2019 09:22 A
== END ==
LOC: M ADAMS 08:16
PROVIDERS: ATTEND Physician Assistant Medical
DX: M79.601 Pain in right arm (principal); E55.9 Vitamin D deficiency, unspecified; I10 Essential (primary) hypertension; E11.22 Type 2 diabetes mellitus with diabetic chronic kidney disease
CPT/HCPCS: 73060; 80053; 80061; 82043; 82306; 83036; 83735; 84443; 85025; 90682; G0008; G0463

== ENCOUNTER → 2019-03-29 | Outpatient (CLI) | payer MEDICARE, OTHER ==
[~2019-03-29] MED LIST changes: +OMEP-172 PO; -OMEP20CA4 PO
== END ==
LOC: M WHC 13:47
PROVIDERS: ATTEND Physician Assistant Medical
DX: M85.9 Disorder of bone density and structure, unspecified (principal)

== ENCOUNTER 2019-04-18 15:27 | Emergency (ER) | payer MEDICARE, OTHER ==
[~2019-04-18] VITALS: Ht 157.5 cm; Wt 90.9 kg
[~2019-04-18 15:27] MED LIST changes: -CEPH500C PO; -KEFL500C17 PO; -MAGN400T2 PO; -OMEP-172 PO; +OMEP1CAP73 PO; +ONDA-83 PO; -ONDA4TAB5 PO; -PX N0.05; -VITA400C56 PO
[2019-04-18 17:48] LABS: BASO % 0.5 % (0.0-1.0); EOS % 0.3 % (0.0-3.0); HEMATOCRIT 34.8 % (36.0-47.0); HEMOGLOBIN 11.3 g/dl (12.0-15.5); LYMPH # 1.2 10^3/uL (1.5-5.0); MEAN CORPUSCULAR HEMOGLOBIN 32.7 pg (27.0-33.0); MEAN CORPUSCULAR HGB CONC 32.5 g/dl (32.0-36.5); MEAN CORPUSCULAR VOLUME 100.6 fl (80.0-96.0); MONO # 0.9 10^3/uL (0.0-0.8); MONO % 14.8 % (0.0-5.0); NEUTROPHILS # 3.9 10^3/uL (1.5-8.5); NEUTROPHILS % 64.1 % (36.0-66.0); PLATELET COUNT, AUTOMATED 205 10^3/uL (150-450); RED BLOOD COUNT 3.46 10^6/uL (4.00-5.40); WHITE BLOOD COUNT 6.2 10^3/uL (4.0-10.0)
[2019-04-18 17:57] LABS: INR 1.48; PROTHROMBIN TIME 17.6 SECONDS (11.8-14.0)
[2019-04-18 18:21] LABS: ALBUMIN 3.1 GM/DL (3.2-5.2); BILIRUBIN,DIRECT 0.2 MG/DL (0.0-0.2); BILIRUBIN,TOTAL 0.8 MG/DL (0.2-1.0); CALCIUM LEVEL 7.9 MG/DL (8.8-10.2); CREATININE FOR GFR 1.65 MG/DL (0.55-1.30); GLOMERULAR FILTRATION RATE 32.6 (>39); POTASSIUM SERUM 3.2 MEQ/L (3.5-5.1); TOTAL PROTEIN 7.1 GM/DL (6.4-8.2)
[2019-04-18] MEDS ORDERED: NS 1,000 ML IV SCH (18:30)
[2019-04-18] MEDS ORDERED: LABETALOL HCL 100 MG/20 ML VIAL IV STA (18:54)
[2019-04-18] MEDS ORDERED: ACETAMINOPHEN TAB 650MG DOSE (2X325MG) PO ONE (19:00)
--- NOTE | 2019-04-18 19:16 | REP ---
Portable chest x-ray: Single view. History: Fever. Comparison study: January 26, 2018. Findings: EKG electrodes are seen. There is mild linear fibrosis in the right base adjacent to the right heart border and to a lesser extent, in the left base. There is a hazy pleural opacity in the left mid lung zone which is unchanged from the January 26, 2018 prior study. This is seen on CT study from December 15, 2017 to be due to coarse fibroatelectatic change. Pulmonary vasculature is not increased. No evidence of pulmonary edema or pleural effusion is seen. Impression: Bibasilar fibrosis and left mid lung fibroatelectatic change. Stable findings from January 26, 2018. Electronically Signed by Alex Street MD 04/18/2019 07:33 P
[2019-04-18 19:18] VITALS: BP 209/86
[2019-04-18] MEDS ORDERED: cefTRIAXone SOD 1 GM in D5W MINI-BAG PLUS 50 ML IV ONE (20:00)
[2019-04-18] MEDS ORDERED: KEFL500C17 PO (20:37)
[2019-04-18 20:51] VITALS: BP 190/96
[2019-04-19] MEDS ORDERED: VITA50005 PO (22:54)
[2019-04-19] MEDS ORDERED: VITA400C56 PO (22:54)
[2019-04-19] MEDS ORDERED: PX N0.05 (22:54)
[2019-04-19] MEDS ORDERED: CEPH500C PO (22:54)
[2019-04-19] MEDS ORDERED: VITMTA PO (22:54)
[2019-04-19] MEDS ORDERED: MAGN400T2 PO (22:54)
== END 2019-04-18 21:45 | disposition home or self-care (01) ==
LOC: M ED 15:27
DX: H05.019 Cellulitis of unspecified orbit (principal); N18.3 Chronic kidney disease, stage 3 (moderate)

== ENCOUNTER → 2019-04-18 | Outpatient (REF) | payer MEDICARE, OTHER ==
[~2019-04-18] MED LIST changes: +CEPH500C PO; +KEFL500C17 PO; +MAGN400T2 PO; +PX N0.05; +VITA400C56 PO
[2019-04-18 14:01] LABS: ALBUMIN 3.1 GM/DL (3.2-5.2); CREATININE FOR GFR 1.93 MG/DL (0.55-1.30); GLOMERULAR FILTRATION RATE 27.2 (>39); PHOSPHORUS LEVEL 3.4 MG/DL (2.5-4.9); POTASSIUM SERUM 3.1 MEQ/L (3.5-5.1)
== END ==
LOC: M LAB REF 12:59
PROVIDERS: ATTEND Nurse Practitioner Family
DX: N18.3 Chronic kidney disease, stage 3 (moderate) (principal)

== ENCOUNTER 2019-04-19 17:05 | Inpatient (IN) | payer MEDICARE, OTHER ==
[~2019-04-19] VITALS: Ht 157.5 cm; Wt 97.8 kg
[~2019-04-19 17:05] MED LIST changes: +KEFL500C17 PO
[2019-04-19 19:23] LABS: BASO % 0.6 % (0.0-1.0); EOS # 0.1 10^3/uL (0.0-0.5); EOS % 2.4 % (0.0-3.0); HEMATOCRIT 34.4 % (36.0-47.0); HEMOGLOBIN 10.9 g/dl (12.0-15.5); LYMPH # 0.9 10^3/uL (1.5-5.0); LYMPH % 19.7 % (24.0-44.0); MEAN CORPUSCULAR HGB CONC 31.7 g/dl (32.0-36.5); MEAN CORPUSCULAR VOLUME 100.9 fl (80.0-96.0); MONO # 0.6 10^3/uL (0.0-0.8); MONO % 12.7 % (0.0-5.0); NEUTROPHILS % 64.4 % (36.0-66.0); PLATELET COUNT, AUTOMATED 196 10^3/uL (150-450); RED BLOOD COUNT 3.41 10^6/uL (4.00-5.40); WHITE BLOOD COUNT 4.7 10^3/uL (4.0-10.0)
[2019-04-19] MEDS ORDERED: ISOVUE-370 76% 100ML VIAL (Q9967) As Ordered ONE (19:49)
[2019-04-19 19:51] LABS: INR 1.5; PROTHROMBIN TIME 17.8 SECONDS (11.8-14.0)
[2019-04-19 19:55] LABS: ALBUMIN 3.2 GM/DL (3.2-5.2); BILIRUBIN,DIRECT 0.2 MG/DL (0.0-0.2); BILIRUBIN,TOTAL 0.6 MG/DL (0.2-1.0); CALCIUM LEVEL 7.6 MG/DL (8.8-10.2); CREATININE FOR GFR 1.41 MG/DL (0.55-1.30); GLOMERULAR FILTRATION RATE 39.1 (>39); POTASSIUM SERUM 3.4 MEQ/L (3.5-5.1); TOTAL PROTEIN 6.9 GM/DL (6.4-8.2)
--- NOTE | 2019-04-19 20:27 | REPVR ---
PROCEDURE INFORMATION: Exam: CT Orbits With Contrast Exam date and time: 04/19/2019 7:51 PM Age: 73 years old Clinical indication: Other: Swelling; Additional info: L periorbital edema/erythema TECHNIQUE: Imaging protocol: Computed tomography images of the orbits with intravenous contrast. Radiation optimization: All CT scans at this facility use at least one of these dose optimization techniques: automated exposure control; mA and/or kV adjustment per patient size (includes targeted exams where dose is matched to clinical indication); or iterative reconstruction. Contrast material: ISOVUE 370; Contrast volume: 75 ml; Contrast route: IV; COMPARISON: CT Head without contrast 06/10/2016 3:48 PM FINDINGS: Orbits: The optic globes are intact. The intraorbital muscular cones are normal. Retrobulbar fat is normal. The optic nerves are normal. Sinuses: Minimal left maxillary sinus mucosal thickening. Bones/joints: No fractures. Soft tissues: Mild left periorbital soft tissue swelling. Vasculature: Atherosclerotic calcification of the carotid siphons is noted. Brain: No intracranial abnormalities identified. IMPRESSION: 1. Minimal left maxillary sinus disease. 2. Mild left periorbital soft tissue swelling. 3. Otherwise negative CT orbits. No intraorbital abnormality is identified. Electronically signed by: Dale Wong On 04/19/2019 20:27:00 PM
[2019-04-19] MEDS ORDERED: cefTRIAXone SOD 1 GM in D5W MINI-BAG PLUS 50 ML IV ONE (20:45)
[2019-04-19 20:53] VITALS: BP 133/92
[2019-04-19] MEDS: HumaLOG INSULIN (NovoLOG) PER UNIT SC SCH (21:00)
--- NOTE | 2019-04-19 21:39 | HPEPDOC ---
[facility] Medical History & Physical Date of Admission Apr 19, 2019 Date of Service: Apr 19, 2019 Primary Care Physician: SANDRITA ENRIQUEZ PA-C Attending Physician: Saleem Barnard MD History and Physical TIME OF SERVICE: 10:45 PM CHIEF COMPLAINT: Sent from nephrology clinic HISTORY OF PRESENT ILLNESS: This is a 73-year-old female who presented to the hospital last night with c omplaints of left-sided facial swelling without eye pain and bloody diarrhea for 2 months and multiple falls. She was diagnosed with preseptal cellulitis and sent home with cephalexin. Today she went to her nephrology clinic and was sent to the hospital by the FEDERAL APPELLATE CLERK. Per discussion with the ER provider hemoccult was positive and CT confirmed preseptal cellulitis; the patient received IV ceftriaxone . REVIEW OF SYSTEMS: 12 point review of systems negative except as listed in HPI PAST MEDICAL/ SURGICAL HISTORY: Chronic CAD/status post cardiac bypass COPD without oxygen dependence CKD 3 Atria fibrillation on Elquis Chronic diastolic CHF Gout IDDM Osteoporosis Hypothyroidism Chronic hypertension GERD Anxiety and depression Chronic back pain History of C. difficile colitis Status post tonsillectomy Status post cystectomy Status post tubal ligation Status post D&C Status post cholecystectomy Status post appendectomy, status post hysterectomy SOCIAL HISTORY: She is a former smoker. She does not drink alcohol FAMILY HISTORY: She doesn't have a family history of CAD or lung disease ALLERGIES: Please see below. HOME MEDICATIONS: Please see below. PHYSICAL EXAMINATION: VITAL SIGNS: Please see below. GEN: well-nourished / well developed INTEGUMENT: She has redness and thickening of the skin surrounding the left periorbital area extending across the bridge of the nose HEENT: NCAT / lips acyanotic /mucus membranes moist and pink / she has conjunctival injection affecting the left orbit, but extraocular movements are intact CVS: RRR/NMRG LUNGS: able to speak full sentences without stopping to take a breath / lungs are clear to auscultation bilaterally on room air ABDOMEN: Contour ( obese) / the abdomen is soft & not tender with palpation MSK/EXTREMITIES: range of motion intact in all 4 extremities NEURO: CN 2-12 are grossly intact / speech is not dysarthric PSYCH: alert and oriented LABORATORY DATA: See below. IMAGING: CT of the orbit " IMPRESSION: 1. Minimal left maxillary sinus disease. 2. Mild left periorbital soft tissue swelling. 3. Otherwise negative CT orbits. No intraorbital abnormality is identified. " MICROBIOLOGY: Please see below. ASSESSMENT: Mr. Cordova is a 73-year-old female with a past medical history of CAD, CKD 3, COPD, A. fib, diastolic CHF, gout, DM, osteoporosis, hypothyroidism, HTN GERD, anxiety, depression, and back pain who is admitted for management of preseptal cellulitis, evaluation of acute blood loss anemia, and evaluation of frequent falls . PLAN: 1. Preseptal cellulitis. The only. She is criteria. She had was mild tachycardia. The WBC count was within normal limits. CT from orbits has been reviewed Plan: Admit to medical floor/switch from ceftriaxone to Ceftaroline / the daytime team may consider ENT or ophthalmology consult in the morning 2. Anemia/lower GI bleed Possibly due to diverticulosis versus angiodysplasia versus AVM versus polyps versus hemorrhoids. Hemoccult was positive. Hemoglobin has dropped from 11.3 yesterday to 10.9 today. [place] score to predict risk of readmission for GI bleed = 19 points = discharge not recommended Plan: Follow up serial hemoglobin/ CLD diet / GI consult for c-scope / hold apixaban and aspirin 3. Frequent falls - Plan: Follow up CT of the head ordered by ER provider / PT anne 4. Mild hypokalemia - Plan: Replete potassium / f/u K and Mag in the morning 5. Chronic CAD/status post cardiac bypass - Plan: Aspirin on hold because of GI bleed/continue atorvastatin and metoprolol 6. Chronic COPD - Plan: Albuterol when necessary 7. Chronic hypertension/ Chronic diastolic CHF - Plan: Continue metoprolol and ramipril 8. Atria fibrillation - Plan: Hold Elquis continue metoprolol 9. IDDM (A1c was 7.6 in January ) - Plan: f/u accuchecks / hypoglycemia protocol /hold Humulin/start sliding scale insulin / 10. Gout - Plan: Continue Febuxostat 11. CKD 3 - Plan: Follow-up BMP 12. Hypothyroidism - plan: Levothyroxine 13. GERD - Plan: PPI 14. Anxiety and depression / Chronic back pain - Plan: Paroxetine & lidocane patches 15. Obesity (BMI 37.2) . This complicates care - Plan: can f/u w PCP for STOP BANG questionnaire & pharmacy salesperson consult DVT PROPHYLAXIS: SCDs DISPOSITION: Home. After more than 2 midnight's stay Vital Signs Vital Signs Date Time Temp Pulse Resp B/P (MAP) Pulse Ox O2 Delivery O2 Flow Rate FiO2 04/19/19 21:33 162/70 (100) 04/19/19 21:14 98.5 90 17 97 Room Air Laboratory Data Labs 24H Laboratory Tests 2 04/19/19 18:37: Immature Granulocyte % (Auto) 0.2, Neutrophils (%) (Auto) 64.4, Lymphocytes (%) (Auto) 19.7L, Monocytes (%) (Auto) 12.7H, Eosinophils (%) (Auto) 2.4, Basophils (%) (Auto) 0.6, Neutrophils # (Auto) 3.0, Lymphocytes # (Auto) 0.9L, Monocytes # (Auto) 0.6, Eosinophils # (Auto) 0.1, Basophils # (Auto) 0.0, Nucleated Red Blood Cells % (auto) 0.0, Prothrombin Time 17.8H, Prothromb Time International Ratio 1.50, Activated Partial Thromboplast Time 35.0, Anion Gap 10, Glomerular Filtration Rate 39.1, Lactic Acid Level 1.8, Calcium Level 7.6L, Total Bilirubin 0.6, Direct Bilirubin 0.2, Aspartate Amino Transf (AST/SGOT) 22, Alanine Aminotransferase (ALT/SGPT) 16, Alkaline Phosphatase 126H, Total Protein 6.9, Albumin 3.2, Albumin/Globulin Ratio 0.86L, Lipase 135 04/19/19 19:25: POC Glucose (Misc Panel) 166H, POC Sodium (Misc Panel) 138, POC Potassium (Misc Panel) 3.7, POC Chloride (Misc Panel) 98, POC Total CO2 (Misc Panel) 28.0H, POC Blood Urea Nitrogen (Misc Panel 22, POC Ionized Calcium (Misc Panel) 4.1L, POC Creatinine (Misc Panel) 1.4H, POC Hematocrit (Misc Panel) 33.0L 04/19/19 20:07: Urine Color YELLOW, Urine Appearance CLEAR, Urine pH 5.0, Urine Specific [place] 1.008, Urine Protein 1+H, Urine Glucose (UA) NEGATIVE, Urine Ketones NEGATIVE, Urine Blood 1+H, Urine Nitrite NEGATIVE, Urine Bilirubin NEGATIVE, Urine Urobilinogen 0.2, Urine Leukocyte Esterase NEGATIVE, Urine WBC (Auto) 1, Urine RBC (Auto) 1, Urine Hyaline Casts (Auto) 0, Urine Bacteria (Auto) 1+H, Urine Squamous Epithelial Cells 2, Urine Mucus (Auto) SMALL, Urine Sperm (Auto) CBC/BMP Laboratory Tests 04/19/19 18:37 Home Medications Scheduled Alendronate Sodium (Alendronate Sodium) 35 Mg Tab, 35 MG PO 1XWK WEDNESDAY AROUND 1400 Apixaban (Eliquis) 5 Mg Tab, 5 MG PO BID Aspirin (Aspirin EC) 81 Mg Tabec, 81 MG PO DAILY Atorvastatin Calcium (Lipitor) 80 Mg Tab, 80 MG PO QHS Cephalexin (Cephalexin) 500 Mg Capsule, 500 MG PO Q8H ON HOLD Clonidine HCl (Clonidine HCl) 0.1 Mg Tab, 0.1 MG PO DAILY Conjugated Estrogens (Premarin) 0.3 Mg Tab, 0.3 MG PO Q2D TAKES EVERY OTHER NIGHT Ergocalciferol (Vitamin D2) (Vitamin D2) 50,000 Units Cap, 50,000 UNITS PO 1XWK WEDNESDAY AROUND 1400 Febuxostat (Uloric) 40 Mg Tab, 40 MG PO DAILY Furosemide (Furosemide) 40 Mg Tab, 40 MG PO BID Insulin Human NPH (Novolin N) 1 Ml Susp, 22 UNITS SC BID Insulin Human Regular (Novolin R) 1 Ml Soln, 1 DOSE SC BID BEFORE BREAKFAST AND SUPPER PER SLIDING SCALE Krill/Om-3/Dha/Epa/Phospho/Ast (Megared [place]-3 Krill Oil Sfgl) 1 Cap Cap, 1 CAP PO DAILY TAKES AROUND 1400 Levothyroxine Sodium (Levothyroxine Sodium) 25 Mcg Tab, 25 MCG PO DAILY Lidocaine HCl (Lidocaine HCl) 1 Dose/30 Ml Jel, 1 DOSE TOP BID USES ON ARMS AND LEGS FOR ITCHING Magnesium Oxide (Magnesium Oxide) 400 Mg Tablet, 400 MG PO DAILY TAKES AROUND 1400 Metoprolol Tartrate (Metoprolol Tartrate) 25 Mg Tab, 25 MG PO TID Multivitamins (Thera M Plus Tablet) 1 Each Tablet, 1 TAB PO DAILY TAKES AROUND 1400 Omeprazole (Omeprazole) 20 Mg Cap, 20 MG PO DAILY Paroxetine HCl (Paroxetine) 20 Mg Tab, 20 MG PO DAILY Ramipril (Ramipril) 2.5 Mg Cap, 2.5 MG PO BID Tizanidine HCl (Tizanidine HCl) 4 Mg Tab, 4 MG PO QHS Vitamin E (Vitamin E) 400 Unit Capsule, 400 UNIT PO DAILY TAKES AROUND 1400 Zolpidem Tartrate (Ambien Cr) 6.25 Mg Tab, 6.25 MG PO QHS Scheduled PRN Albuterol Sulfate (Proair Hfa) 108 Mcg/Act Aer, 2 PUFF INH Q4H PRN for SOB/WHEEZING Colchicine (Colchicine) 0.6 Mg Cap, 0.6 MG PO BID PRN for GOUT FLAREUPS Diazepam (Diazepam) 5 Mg Tab, 5 MG PO BID PRN for ANXIETY Ondansetron HCl (Ondansetron HCl) 4 Mg Tab, 4 MG PO TID PRN for NAUSEA OR VOMITING Oxymetazoline HCl (Oxymetazoline HCl) 30 Ml [place], 2 SPRAYS NA QHS PRN for NASAL CONGESTION Tizanidine HCl (Tizanidine HCl) 4 Mg Tab, 4 MG PO BID PRN for MUSCLE SPASMS Allergies Coded Allergies: [place] (Verified Allergy, Mild, ITCH/RASH, 04/18/19) midazolam (Verified Allergy, Unknown, 04/18/19) pentazocine (Verified Allergy, Unknown, 04/18/19) codeine (Verified Adverse Reaction, Intermediate, PALPITATIONS, 04/18/19) fentanyl (Verified Adverse Reaction, Intermediate, VOMITING, 04/19/19) hydrocodone (Verified Adverse Reaction, Intermediate, TACHYCARDIA, 04/18/19) oxycodone (Verified Adverse Reaction, Intermediate, TACHTCARDIA, 04/18/19) Sulfa (Sulfonamide Antibiotics) (Verified Adverse Reaction, Mild, GI UPSET, 04/18/19) A-FIB/CHADSVASC A-FIB History Current/History of A-Fib/PAF?: Yes Current PO Anticoag Therapy: No Treatment Treatment ordered: Holding Other ARMANDO ESPINO MD Apr 19, 2019 21:39
[2019-04-19] MEDS ORDERED: MAALOX 30 ML SUSP *UDC PO PRN (21:45)
[2019-04-19] MEDS ORDERED: DEXTROSE 50% 50 ML SYRINGE IV PRN (21:45)
[2019-04-19] MEDS ORDERED: MOM 30ML SUSPENSION UDC PO PRN (21:45)
[2019-04-19] MEDS ORDERED: GLUCAGON FOR INJ 1 MG VIAL (J1610) SC PRN (21:45)
[2019-04-19] MEDS ORDERED: GLUCOSE 4 GM CHEW TABLET PO PRN (21:45)
[2019-04-19] MEDS ORDERED: VITA400C56 PO (22:54)
[2019-04-19] MEDS ORDERED: MAGN400T2 PO (22:54)
[2019-04-19] MEDS ORDERED: VITMTA PO (22:54)
[2019-04-19] MEDS ORDERED: VITA50005 PO (22:54)
[2019-04-19] MEDS ORDERED: PX N0.05 (22:54)
[2019-04-19] MEDS ORDERED: CEPH500C PO (22:54)
[2019-04-20] MEDS ORDERED: tiZANidine 4 MG TAB PO PRN (00:30)
[2019-04-20] MEDS ORDERED: OXYMETAZOLINE NASAL SPRAY (AFRIN) PRN (00:30)
[2019-04-20] MEDS ORDERED: COLCHICINE 0.6 MG TAB PO PRN (00:30)
[2019-04-20] MEDS ORDERED: ALBUTEROL 90 MCG/ACT 8GM HFA INHALER INH PRN (00:30)
[2019-04-20] MEDS ORDERED: METOPROLOL TART 25 MG TABLET PO ONE ×2 (01:00→03:00)
[2019-04-20] MEDS ORDERED: ramipriL 1.25 MG CAP PO ONE ×2 (01:00→03:00)
[2019-04-20] MEDS: tiZANidine 4 MG TAB PO SCH ×2 (01:42→22:03)
--- NOTE | 2019-04-20 02:18 | REPVR ---
PROCEDURE INFORMATION: Exam: CT Head Without Contrast Exam date and time: 04/19/2019 9:38 PM Age: 73 years old Clinical indication: Injury or trauma; Fall; Initial encounter; Concussion / head injury; Consciousness not specified; Additional info: Reports fall, on ac TECHNIQUE: Imaging protocol: Computed tomography of the head without contrast. Radiation optimization: All CT scans at this facility use at least one of these dose optimization techniques: automated exposure control; mA and/or kV adjustment per patient size (includes targeted exams where dose is matched to clinical indication); or iterative reconstruction. COMPARISON: CT Head without contrast 06/10/2016 3:48 PM FINDINGS: Brain: There is minimal patchy low attenuation of deep white matter. Small old left anterior subinsular lacunar infarct. Ventricles: Normal. No ventriculomegaly. Bones/joints: Unremarkable. No acute fracture. Sinuses: Visualized sinuses are unremarkable. No fluid levels. Mastoid air cells: Visualized mastoid air cells are well aerated. Soft tissues: Left cheek and left periorbital soft tissue swelling IMPRESSION: 1. Left cheek and left periorbital soft tissue swelling. 2. There has otherwise been little change from 06/10/2016. No acute interval intracranial process is identified. 3. Minimal chronic ischemic white matter change. Electronically signed by: Dale Wong On 04/20/2019 02:17:40 AM
[2019-04-20] MEDS: zolPIDEM CR 6.25MG TABLET (AMBIEN CR) PO SCH ×2 (02:39→22:03)
[2019-04-20] MEDS ORDERED: LIDOCAINE 5% (LIDODERM) PATCH TD PRN (02:45)
[2019-04-20] MEDS ORDERED: POTASSIUM CHLORIDE 10 MEQ SR TABLET PO ONE (02:45)
[2019-04-20 03:33] VITALS: BP 120/80
[2019-04-20] MEDS: CEFTAROLINE FOSAMIL 300 MG in D5W 50 ML IV SCH ×2 (03:37→14:43)
[2019-04-20] MEDS: LEVOTHYROXINE 25MCG TABLET (0.025MG) PO SCH (05:29)
[2019-04-20 06:00] VITALS: BP 111/47
[2019-04-20 06:13] LABS: HEMATOCRIT 30.6 % (36.0-47.0); HEMOGLOBIN 9.6 g/dl (12.0-15.5); MEAN CORPUSCULAR HEMOGLOBIN 31.7 pg (27.0-33.0); MEAN CORPUSCULAR HGB CONC 31.4 g/dl (32.0-36.5); PLATELET COUNT, AUTOMATED 192 10^3/uL (150-450); RED BLOOD COUNT 3.03 10^6/uL (4.00-5.40); WHITE BLOOD COUNT 3.9 10^3/uL (4.0-10.0)
[2019-04-20 06:33] LABS: CALCIUM LEVEL 7.7 MG/DL (8.8-10.2); CREATININE FOR GFR 1.56 MG/DL (0.55-1.30); GLOMERULAR FILTRATION RATE 34.8 (>39); MAGNESIUM LEVEL 1.1 MG/DL (1.8-2.4); POTASSIUM SERUM 3.3 MEQ/L (3.5-5.1)
[2019-04-20 06:38] LABS: PERCENT SATURATION 18.6 % (13.2-45.0)
[2019-04-20] MEDS: MULTIVITAMINS/MINERALS THERAP 1 TAB PO SCH (07:51)
[2019-04-20] MEDS: cloNIDine 0.1 MG TAB PO SCH (07:52)
[2019-04-20] MEDS: METOPROLOL TART 25 MG TABLET PO SCH ×3 (07:52→22:04)
[2019-04-20] MEDS: FEBUXOSTAT 40 MG TABLET (ULORIC) PO SCH (07:52)
[2019-04-20] MEDS: OMEPRAZOLE 20 MG CAP PO SCH (07:53)
[2019-04-20] MEDS: ramipriL 1.25 MG CAP PO SCH ×2 (07:53→22:04)
[2019-04-20] MEDS: PARoxetine 20 MG TAB PO SCH (07:53)
[2019-04-20] MEDS: FUROSEMIDE 40 MG TAB PO SCH ×2 (07:53→21:00)
[2019-04-20] MEDS: MAGNESIUM OXIDE 400 MG TAB (MAG-OX) PO SCH (07:53)
[2019-04-20] MEDS: HumaLOG INSULIN (NovoLOG) PER UNIT SC SCH ×4 (07:54→21:00)
[2019-04-20] MEDS: DOCUSATE SODIUM 100 MG CAP PO SCH ×2 (07:55→21:00)
[2019-04-20] MEDS: LIDOCAINE 2% JELLY 30 ML TOP SCH ×2 (07:55→22:05)
[2019-04-20] MEDS: **NOTE PATIENT COMMENT** MISC XX SCH (07:56)
[2019-04-20] MEDS ORDERED: HumuLIN N INSULIN (NovoLIN N) PER UNIT SC SCH (09:00)
[2019-04-20] MEDS ORDERED: ramipriL 5 MG CAP PO SCH (09:00)
[2019-04-20] MEDS ORDERED: ramipriL 1.25 MG CAP PO SCH (09:00)
--- NOTE | 2019-04-20 11:22 | IPNPDOC ---
Subjective Date Seen The patient was seen on 04/20/19. Subjective Chief Complaint/HPI GIB, cellulitis Events since last encounter Sleeping when I entered the room. Admitted for left facial/septal cellulitis. Currently on Ceftaroline. Patient c/o itching to left side of face. Also nopted to have lower Hgb, which has been trending down. + Hemoccult. Gi consult pending with Dr. Lewis. Constitutional: Denies: Chills, Fever, Night Sweats ENT: Reports: Other Symptoms (left facial swelling and itching. ) Skin: Denies: Rash, Lesions, Jaundice, Bruising, Itching, Dry, Breakdown, Nail Changes, Other Cardiovascular: Denies: Chest Pain, Palpitations, Orthopnea, Paroxysmal Noc. Dyspnea, Lt Headedness Gastrointestinal: Reports: Melena; Denies: Nausea, Vomiting, Abdominal Pain, Diarrhea, Constipation, Hematochezia, Other Symptoms Hematologic: Denies: Bruising, Bleeding Excessively Psych: Reports: Mood Normal; Denies: Depression, Memory Issues Objective Physical Examination General Exam: Positive: Alert, No Acute Distress Eye Exam: Positive: EOMI, Other Eye Symptoms (left eye with erythema and swelling) ENT Exam: Positive: Other ENT (left facial swelling and erythema to forehead, eye, maxillary sinus) Neck Exam: Positive: Supple; Negative: JVD, thyromegaly Chest Exam: Positive: Clear to auscultation, Normal air movement Heart Exam: Positive: Rate Normal, Irregular Rhythm, Normal S1, Normal S2; Negative: Murmurs, Rubs Psych Exam: Positive: Mental status NL, Mood NL, Oriented x 3 Assessment /Plan Problems (1) Heme positive stool Status: Acute Problem Text: NPO, D51/2 NS a2 75 cc per hour. GI consult placed with Dr. Lewis. Hgb trending down. baseline 11-13. (2) Preseptal cellulitis Status: Acute Problem Text: Ceftaroline IV day #1 (3) Chronic kidney disease, stage 3 Status: Chronic Problem Text: Cr at baseline (4) Type 2 diabetes mellitus Status: Chronic Response to Treatment: Stable Problem Text: RISS. Currently NPO monitor FS q 6 hrs. Novolin N 22 units at bedtime daily at home. Resume long acting insulin when taking po. Last hgba1c 7. 6 on 01/2019 (5) COPD (chronic obstructive pulmonary disease) Status: Chronic (6) Coronary artery disease Status: Chronic (7) Acquired hypothyroidism Status: Chronic Problem Text: on home dose (8) Iron deficiency anemia secondary to inadequate dietary iron intake Status: Chronic Problem Text: chronic anemia from medical disease. no with concern for GIB (9) Essential hypertension Status: Chronic Response to Treatment: Stable (10) Hyperlipidemia Status: Chronic Response to Treatment: Stable (11) Chronic atrial fibrillation Status: Chronic Problem Text: eliquis on hold due to anemia and heme + Plan/VTE VTE Prophylaxis Ordered?: No VTE Exclusion Pharmacological: Active Bleeding VS, I&O, 24H, Fishbone Vital Signs/I&O Vital Signs Date Time Temp Pulse Resp B/P (MAP) Pulse Ox O2 Delivery O2 Flow Rate FiO2 04/20/19 07:53 147/93 04/20/19 07:52 90 04/20/19 06:00 97.1 16 91 Room Air I&O- Last 24 Hours up to 6 AM 04/20/19 06:00 Intake Total 950 ml Balance 950 ml Laboratory Data 24H LABS Laboratory Tests 2 04/19/19 18:37: Immature Granulocyte % (Auto) 0.2, Neutrophils (%) (Auto) 64.4, Lymphocytes (%) (Auto) 19.7L, Monocytes (%) (Auto) 12.7H, Eosinophils (%) (Auto) 2.4, Basophils (%) (Auto) 0.6, Neutrophils # (Auto) 3.0, Lymphocytes # (Auto) 0.9L, Monocytes # (Auto) 0.6, Eosinophils # (Auto) 0.1, Basophils # (Auto) 0.0, Nucleated Red Blood Cells % (auto) 0.0, Prothrombin Time 17.8H, Prothromb Time International Ratio 1.50, Activated Partial Thromboplast Time 35.0, Anion Gap 10, Glomerular Filtration Rate 39.1, Lactic Acid Level 1.8, Calcium Level 7.6L, Total Bilirubin 0.6, Direct Bilirubin 0.2, Aspartate Amino Transf (AST/SGOT) 22, Alanine Aminotransferase (ALT/SGPT) 16, Alkaline Phosphatase 126H, Total Protein 6.9, Albumin 3.2, Albumin/Globulin Ratio 0.86L, Lipase 135 04/19/19 19:25: POC Glucose (Misc Panel) 166H, POC Sodium (Misc Panel) 138, POC Potassium (Misc Panel) 3.7, POC Chloride (Misc Panel) 98, POC Total CO2 (Misc Panel) 28.0H, POC Blood Urea Nitrogen (Misc Panel 22, POC Ionized Calcium (Misc Panel) 4.1L, POC Creatinine (Misc Panel) 1.4H, POC Hematocrit (Misc Panel) 33.0L 04/19/19 20:07: Urine Color YELLOW, Urine Appearance CLEAR, Urine pH 5.0, Urine Specific [place] 1.008, Urine Protein 1+H, Urine Glucose (UA) NEGATIVE, Urine Ketones NEGATIVE, Urine Blood 1+H, Urine Nitrite NEGATIVE, Urine Bilirubin NEGATIVE, Urine Urobilinogen 0.2, Urine Leukocyte Esterase NEGATIVE, Urine WBC (Auto) 1, Urine RBC (Auto) 1, Urine Hyaline Casts (Auto) 0, Urine Bacteria (Auto) 1+H, Urine Squamous Epithelial Cells 2, Urine Mucus (Auto) SMALL, Urine Sperm (Auto) 04/19/19 22:07: Bedside Glucose (Misc Panel) 146H 04/20/19 02:41: Magnesium Level 1.1L 04/20/19 05:49: Magnesium Level 1.1L, Nucleated Red Blood Cells % (auto) 0.0, Anion Gap 7L, Glom erular Filtration Rate 34.8L, Calcium Level 7.7L, Iron Level 54, Total Iron Binding Capacity 290, Transferrin % Saturation 18.6, Ferritin 119 CBC/BMP Laboratory Tests 04/19/19 18:37 04/20/19 02:41 04/20/19 05:49 Microbiology Microbiology 04/20/19 Gastrointestinal Tract Panel (PCR), Received Pending Lyudmila Minor [facility] Apr 20, 2019 11:22
[2019-04-20] MEDS: D5W/0.45% SODIUM CHLORIDE 1,000 ML IV SCH (11:43)
[2019-04-20] MEDS: MAG SULF 1GM/100ML (MAG RUN) 1 GM in IV 1 EA IV SCH ×2 (11:44→13:26)
[2019-04-20 14:00] VITALS: BP 119/58
[2019-04-20] MEDS: ACETAMINOPHEN TAB 650MG DOSE (2X325MG) PO PRN (16:03)
[2019-04-20 22:00] VITALS: BP 117/57
[2019-04-20] MEDS: diazePAM 5 MG TAB PO PRN (22:02)
[2019-04-20] MEDS: ATORVASTATIN 20 MG TAB PO SCH (22:03)
[2019-04-21] MEDS: D5W/0.45% SODIUM CHLORIDE 1,000 ML IV SCH (02:04)
[2019-04-21] MEDS: CEFTAROLINE FOSAMIL 300 MG in D5W 50 ML IV SCH (02:04)
[2019-04-21 06:00] VITALS: BP 121/56
[2019-04-21] MEDS: LEVOTHYROXINE 25MCG TABLET (0.025MG) PO SCH (06:04)
[2019-04-21] MEDS ORDERED: GOLYTELY SOLN 4000 ML BTL PO ONE (08:00)
[2019-04-21] MEDS: HumaLOG INSULIN (NovoLOG) PER UNIT SC SCH ×4 (08:50→21:00)
[2019-04-21] MEDS: FEBUXOSTAT 40 MG TABLET (ULORIC) PO SCH (08:53)
[2019-04-21] MEDS: MAGNESIUM OXIDE 400 MG TAB (MAG-OX) PO SCH (08:53)
[2019-04-21] MEDS: MULTIVITAMINS/MINERALS THERAP 1 TAB PO SCH (08:54)
[2019-04-21] MEDS: FUROSEMIDE 40 MG TAB PO SCH (08:54)
[2019-04-21] MEDS: OMEPRAZOLE 20 MG CAP PO SCH (08:54)
[2019-04-21] MEDS: PARoxetine 20 MG TAB PO SCH (08:54)
[2019-04-21] MEDS: METOPROLOL TART 25 MG TABLET PO SCH ×3 (08:54→22:03)
[2019-04-21] MEDS: cloNIDine 0.1 MG TAB PO SCH (08:54)
[2019-04-21] MEDS: ACETAMINOPHEN TAB 650MG DOSE (2X325MG) PO PRN (08:55)
[2019-04-21] MEDS: ramipriL 1.25 MG CAP PO SCH (08:55)
[2019-04-21] MEDS: DOCUSATE SODIUM 100 MG CAP PO SCH ×2 (08:55→21:00)
[2019-04-21] MEDS: LIDOCAINE 2% JELLY 30 ML TOP SCH ×2 (08:56→21:55)
[2019-04-21] MEDS: **NOTE PATIENT COMMENT** MISC XX SCH (08:57)
[2019-04-21] MEDS: diazePAM 5 MG TAB PO PRN ×2 (09:01→21:55)
[2019-04-21 09:30] LABS: HEMATOCRIT 30.5 % (36.0-47.0); HEMOGLOBIN 10.2 g/dl (12.0-15.5); MEAN CORPUSCULAR HEMOGLOBIN 33.4 pg (27.0-33.0); MEAN CORPUSCULAR HGB CONC 33.4 g/dl (32.0-36.5); PLATELET COUNT, AUTOMATED 230 10^3/uL (150-450); RED BLOOD COUNT 3.05 10^6/uL (4.00-5.40); WHITE BLOOD COUNT 4.3 10^3/uL (4.0-10.0)
[2019-04-21 10:07] LABS: CALCIUM LEVEL 8.6 MG/DL (8.8-10.2); CREATININE FOR GFR 2.83 MG/DL (0.55-1.30); GLOMERULAR FILTRATION RATE 17.5 (>39); MAGNESIUM LEVEL 1.8 MG/DL (1.8-2.4); POTASSIUM SERUM 3.4 MEQ/L (3.5-5.1)
[2019-04-21] MEDS ORDERED: CEFTAROLINE FOSAMIL 200 MG in D5W 50 ML IV SCH (10:15)
--- NOTE | 2019-04-21 10:26 | IPNPDOC ---
Subjective Date Seen The patient was seen on 04/21/19. Subjective Chief Complaint/HPI Still having diarrhea, but no gross blood. Facial rash is very itchy Constitutional: Denies: Chills, Fever Pulmonary: Denies: Dyspnea, Cough Cardiovascular: Denies: Chest Pain, Palpitations, Orthopnea Gastrointestinal: Reports: Diarrhea; Denies: Nausea, Vomiting, Abdominal Pain, Constipation Objective Physical Examination General Exam: Positive: Alert, No Acute Distress Eye Exam: Positive: EOMI, Other Eye Symptoms (left eye with erythema and swelling) ENT Exam: Positive: Other ENT (localized erythem over left proximal cheek with some swelling. Slight forehead swelling. Dry skin on forehead and behind left ear. ) Neck Exam: Positive: Supple; Negative: JVD, thyromegaly Chest Exam: Positive: Clear to auscultation, Normal air movement Heart Exam: Positive: Rate Normal, Irregular Rhythm, Normal S1, Normal S2; Negative: Murmurs, Rubs Abdomen Exam: Positive: Normal bowel sounds, Soft; Negative: Tenderness Extremity Exam: Negative: Edema Psych Exam: Positive: Mental status NL, Mood NL, Oriented x 3 Assessment /Plan Problems (1) CHELE (acute kidney injury) Status: Acute Problem Text: see CKD (2) Heme positive stool Status: Acute Problem Text: 04/21 - Dr. Lewis saw her consultation and is planning scope tomorrow am Cont IVF for now - D5NS - increase rate and replace K+. Mag level pending (3) Preseptal cellulitis Status: Acute Problem Text: Ceftaroline IV day #2 - Adjust dose for decline in renal function Add benadryl cream prn itching (4) Chronic kidney disease, stage 3 Status: Chronic Response to Treatment: Worse Problem Text: Renal function has declined. Baseline creatinine ~ 1.5 - Now 2.8 Getting IVF and Lasix so will stop Lasix and Ramipril and increase IVF rate. Adjust Ceftarolin for renal fx decline (5) Type 2 diabetes mellitus Status: Chronic Response to Treatment: Stable Problem Text: RISS. Currently NPO monitor FS q 6 hrs. Novolin N 22 units at bedtime daily at home. Resume long acting insulin when taking po. Last hgba1c 7.6 on 01/2019 (6) COPD (chronic obstructive pulmonary disease) Status: Chronic (7) Coronary artery disease Status: Chronic (8) Acquired hypothyroidism Status: Chronic Problem Text: on home dose (9) Iron deficiency anemia secondary to inadequate dietary iron intake Status: Chronic Problem Text: chronic anemia from medical disease. no with concern for GIB (10) Essential hypertension Status: Chronic Response to Treatment: Stable (11) Hyperlipidemia Status: Chronic Response to Treatment: Stable (12) Chronic atrial fibrillation Status: Chronic Problem Text: eliquis on hold due to anemia and heme + Plan/VTE VTE Prophylaxis Ordered?: No VTE Exclusion Pharmacological: Active Bleeding VS, I&O, 24H, Fishbone Vital Signs/I&O Vital Signs Date Time Temp Pulse Resp B/P (MAP) Pulse Ox O2 Delivery O2 Flow Rate FiO2 04/21/19 08:55 121/56 04/21/19 08:54 63 04/21/19 06:00 98.5 17 90 Room Air I&O- Last 24 Hours up to 6 AM 04/21/19 06:00 Intake Total 2065 ml Output Total 0 ml Balance 2065 ml Laboratory Data 24H LABS Laboratory Tests 2 04/20/19 11:18: Bedside Glucose (Misc Panel) 148H 04/20/19 17:16: Bedside Glucose (Misc Panel) 208H 04/20/19 20:39: Bedside Glucose (Misc Panel) 170H 04/21/19 02:34: Bedside Glucose (Misc Panel) 194H 04/21/19 05:56: Bedside Glucose (Misc Panel) 195H 04/21/19 08:58: Nucleated Red Blood Cells % (auto) 0.0 CBC/BMP Laboratory Tests 04/20/19 11:59 04/21/19 08:58 Microbiology Microbiology 04/20/19 Gastrointestinal Tract Panel (PCR) - Final, Complete EPHRAIM THACKER PA-C Apr 21, 2019 10:26
[2019-04-21] MEDS ORDERED: diphenhydrAMINE CREAM 30GM TOP PRN (10:30)
[2019-04-21] MEDS: NS 1,000 ML IV SCH ×2 (10:56→21:55)
[2019-04-21] MEDS ORDERED: POTASSIUM CHLORIDE 10 MEQ SR TABLET PO ONE (11:00)
[2019-04-21] MEDS: CEFTAROLINE FOSAMIL 200 MG in D5W 50 ML IV SCH (13:54)
[2019-04-21] MEDS: ONDANSETRON 4 MG TAB (S0181) PO PRN ×2 (13:54→21:56)
[2019-04-21 14:00] VITALS: BP 123/55
[2019-04-21 17:25] LABS: FOLATE 9.2 NG/ML (>5.4)
[2019-04-21] MEDS: tiZANidine 4 MG TAB PO SCH (21:55)
[2019-04-21] MEDS: zolPIDEM CR 6.25MG TABLET (AMBIEN CR) PO SCH (21:55)
[2019-04-21] MEDS: ATORVASTATIN 20 MG TAB PO SCH (21:55)
[2019-04-21 22:00] VITALS: BP 158/73
[2019-04-22] MEDS: CEFTAROLINE FOSAMIL 200 MG in D5W 50 ML IV SCH ×2 (01:23→13:42)
[2019-04-22] MEDS: LEVOTHYROXINE 25MCG TABLET (0.025MG) PO SCH (05:51)
[2019-04-22 06:00] VITALS: BP 151/89
[2019-04-22 06:41] LABS: HEMATOCRIT 30.9 % (36.0-47.0); HEMOGLOBIN 9.8 g/dl (12.0-15.5); MEAN CORPUSCULAR HEMOGLOBIN 32.2 pg (27.0-33.0); MEAN CORPUSCULAR HGB CONC 31.7 g/dl (32.0-36.5); MEAN CORPUSCULAR VOLUME 101.6 fl (80.0-96.0); PLATELET COUNT, AUTOMATED 220 10^3/uL (150-450); RED BLOOD COUNT 3.04 10^6/uL (4.00-5.40); WHITE BLOOD COUNT 3.9 10^3/uL (4.0-10.0)
[2019-04-22] MEDS: NS 1,000 ML IV SCH ×3 (07:00→23:18)
[2019-04-22 07:09] LABS: ALBUMIN 2.7 GM/DL (3.2-5.2); BILIRUBIN,TOTAL 0.4 MG/DL (0.2-1.0); CALCIUM LEVEL 8.4 MG/DL (8.8-10.2); CREATININE FOR GFR 2.98 MG/DL (0.55-1.30); GLOMERULAR FILTRATION RATE 16.5 (>39); TOTAL PROTEIN 6.5 GM/DL (6.4-8.2)
[2019-04-22] MEDS: HumaLOG INSULIN (NovoLOG) PER UNIT SC SCH ×4 (07:30→21:00)
[2019-04-22] MEDS ORDERED: propofoL 500 MG/50 ML VIAL As Ordered ONE (07:53)
[2019-04-22] MEDS ORDERED: LIDOCAINE 2% INJ 100 MG/5 ML SDV (FOR ANES.) As Ordered ONE (07:54)
[2019-04-22] MEDS: **NOTE PATIENT COMMENT** MISC XX SCH (09:00)
[2019-04-22] MEDS: DOCUSATE SODIUM 100 MG CAP PO SCH ×2 (09:00→21:00)
[2019-04-22] MEDS: MULTIVITAMINS/MINERALS THERAP 1 TAB PO SCH (11:01)
[2019-04-22] MEDS: MAGNESIUM OXIDE 400 MG TAB (MAG-OX) PO SCH (11:02)
[2019-04-22] MEDS: FEBUXOSTAT 40 MG TABLET (ULORIC) PO SCH (11:02)
[2019-04-22] MEDS: METOPROLOL TART 25 MG TABLET PO SCH ×3 (11:02→22:07)
[2019-04-22] MEDS: OMEPRAZOLE 20 MG CAP PO SCH (11:02)
[2019-04-22] MEDS: PARoxetine 20 MG TAB PO SCH (11:02)
[2019-04-22] MEDS: cloNIDine 0.1 MG TAB PO SCH (11:03)
[2019-04-22] MEDS: LIDOCAINE 2% JELLY 30 ML TOP SCH ×2 (11:04→21:00)
--- NOTE | 2019-04-22 11:07 | ROOR ---
Patient Name: Michelle Cordova Procedure Date: 04/22/2019 9:18 AM Date of : 1945 Age: 73 Gender: Female Note Status: Finalized Procedure: Upper GI endoscopy Indications: Iron deficiency anemia, Hematochezia Providers: Cyril Lewis MD Referring MD: 1. No Referring Physician 1. No Referring Physician, Admin. Requesting Provider: Medicines: Monitored Anesthesia Care Complications: No immediate complications. Procedure: Pre-Anesthesia Assessment: - The heart rate, respiratory rate, oxygen saturations, blood pressure, adequacy of pulmonary ventilation, and response to care were monitored throughout the procedure. The Endoscope was introduced through the mouth, and advanced to the second part of duodenum. The upper GI endoscopy was accomplished without difficulty. The patient tolerated the procedure well. Findings: The Z-line was variable and was found 40 cm from the incisors. A small hiatal hernia was present. No other significant abnormalities were identified in a careful examination of the stomach. The exam of the duodenum was otherwise normal. Impression: - Z-line variable, 40 cm from the incisors. - Small hiatal hernia. - No specimens collected. - The examination was otherwise normal. Recommendation: - Patient has a contact number available for emergencies. The signs and symptoms of potential delayed complications were discussed with the patient. Return to normal activities tomorrow. Written discharge instructions were provided to the patient. - High fiber diet. - Discharge patient to home. - Continue present medications. - Return to referring physician. - The findings and recommendations were discussed with the patient's family. Cyril Lewis MD Cyril Lewis MD 04/22/2019 11:07:24 AM Electronically signed by Cyril Lewis MD Number of Addenda: 0 Note Initiated On: 04/22/2019 9:18 AM Estimated Blood Loss: Estimated blood loss: none.
--- NOTE | 2019-04-22 11:13 | ROOR ---
Patient Name: Michelle Cordova Procedure Date: 04/22/2019 9:50 AM Date of : 1945 Age: 73 Gender: Female Note Status: Finalized Procedure: Colonoscopy Indications: Rectal bleeding, Iron deficiency anemia Providers: Cyril Lewis MD Referring MD: 1. No Referring Physician 1. No Referring Physician, Admin. Requesting Provider: Medicines: Monitored Anesthesia Care Complications: No immediate complications. Procedure: Pre-Anesthesia Assessment: - The heart rate, respiratory rate, oxygen saturations, blood pressure, adequacy of pulmonary ventilation, and response to care were monitored throughout the procedure. The Colonoscope was introduced through the anus and advanced to the cecum, identified by appendiceal orifice and ileocecal valve. Findings: The perianal and digital rectal examinations were normal. Non-bleeding internal hemorrhoids were found during retroflexion. The hemorrhoids were small and Grade I (internal hemorrhoids that do not prolapse). Scattered small-mouthed diverticula were found in the recto-sigmoid colon, sigmoid colon and descending colon. The exam was otherwise without abnormality on direct and retroflexion views. Impression: - Non-bleeding internal hemorrhoids. - Diverticulosis in the recto-sigmoid colon, in the sigmoid colon and in the descending colon. - The examination was otherwise normal on direct and retroflexion views. - No specimens collected. - The exam was otherwise normal to the cecum. Recommendation: - Patient has a contact number available for emergencies. The signs and symptoms of potential delayed complications were discussed with the patient. Return to normal activities tomorrow. Written discharge instructions were provided to the patient. - High fiber diet. - Discharge patient to home. - Continue present medications. - Return to referring physician. - Return to my office in 1 month. - The findings and recommendations were discussed with the patient's family. Cyril Lewis MD Cyril Lewis MD 04/22/2019 11:13:05 AM Electronically signed by Cyril Lewis MD Number of Addenda: 0 Note Initiated On: 04/22/2019 9:50 AM Estimated Blood Loss: Estimated blood loss: none.
[2019-04-22 14:00] VITALS: BP 182/60
[2019-04-22 16:40] VITALS: BP 166/58
--- NOTE | 2019-04-22 17:29 | IPNPDOC ---
Subjective Date Seen The patient was seen on 04/22/19. Subjective Chief Complaint/HPI Ms. Cordova report that she has a "belly ache" after her colonoscopy. I spoke to Dr. Gregory Lewis today and he reported that the only finding of significance was some irritated hemorrhoids. Nursing reports that her facial cellulitis is improving slightly, but not significantly yet. The patient affirms this. Pulmonary: Denies: Cough Cardiovascular: Denies: Chest Pain, Palpitations Gastrointestinal: Reports: Abdominal Pain Psych: Reports: Mood Normal Objective Physical Examination General Exam: Positive: Alert, No Acute Distress (laying on her right side in a semi- position with the lights dimmed when I entered the room) Eye Exam: Positive: EOMI, Other Eye Symptoms (left eye with erythema and swelling) ENT Exam: Positive: Other ENT (localized erythem over left proximal cheek with some swelling. Improbment of the forehead swelling, but persistent erythema. Desqumating scale on forehead and behind left ear. ) Neck Exam: Positive: Supple Chest Exam: Positive: Clear to auscultation, Normal air movement Heart Exam: Positive: Rate Normal, Irregular Rhythm, Normal S1, Normal S2 Abdomen Exam: Positive: Normal bowel sounds, Soft; Negative: Tenderness Extremity Exam: Negative: Edema Psych Exam: Positive: Mental status NL, Mood NL Assessment /Plan Problems (1) Preseptal cellulitis Status: Acute Problem Text: Ceftaroline IV day #3 - Adjusted dose for decline in renal function. Benadryl cream prn itching (2) CHELE (acute kidney injury) Status: Acute Problem Text: Unfortunately her creatinine is still rising some. Continue gentle hydration and holding the diuretic. Monitor. (3) Chronic kidney disease, stage 3 Status: Chronic Response to Treatment: Worse Problem Text: Renal function has declined. Baseline creatinine ~ 1.5 (4) Chronic atrial fibrillation Status: Chronic Problem Text: Eliquis on hold due to anemia and heme +. Will need to resume when the Hb is stable. (5) Heme positive stool Status: Acute Problem Text: Likely from bleeding hemorrhoids per the colonoscopy. (6) Type 2 diabetes mellitus Status: Chronic Response to Treatment: Stable Problem Text: RISS. Currently NPO monitor FS q 6 hrs. Novolin N 22 units at bedtime daily at home. Resume long acting insulin when taking po. Last hgba1c 7.6 on 01/2019 (7) COPD (chronic obstructive pulmonary disease) Status: Chronic (8) Coronary artery disease Status: Chronic (9) Acquired hypothyroidism Status: Chronic Problem Text: on home dose (10) Iron deficiency anemia secondary to inadequate dietary iron intake Status: Chronic Problem Text: chronic anemia from medical disease. no with concern for GIB (11) Essential hypertension Status: Chronic Response to Treatment: Stable (12) Hyperlipidemia Status: Chronic Response to Treatment: Stable Plan/VTE VTE Prophylaxis Ordered?: No VTE Exclusion Pharmacological: Active Bleeding VS, I&O, 24H, Fishbone Vital Signs/I&O Vital Signs Date Time Temp Pulse Resp B/P (MAP) Pulse Ox O2 Delivery O2 Flow Rate FiO2 04/22/19 16:40 62 166/58 (94) 04/22/19 14:00 97.2 20 93 Room Air 04/22/19 10:15 2 I&O- Last 24 Hours up to 6 AM 04/22/19 06:00 Intake Total 5065 ml Output Total 100 ml Balance 4965 ml Laboratory Data 24H LABS Laboratory Tests 2 04/21/19 21:52: Bedside Glucose (Misc Panel) 168H 04/22/19 00:34: Bedside Glucose (Misc Panel) 156H 04/22/19 05:45: Bedside Glucose (Misc Panel) 149H 04/22/19 06:08: Nucleated Red Blood Cells % (auto) 0.0, Anion Gap 11, Glomerular Filtration Rate 16.5L, Calcium Level 8.4L, Total Bilirubin 0.4, Aspartate Amino Transf (AST/SGOT) 21, Alanine Aminotransferase (ALT/SGPT) 19, Alkaline Phosphatase 130H, Total Protein 6.5, Albumin 2.7L, Albumin/Globulin Ratio 0.71L 04/22/19 11:15: Bedside Glucose (Misc Panel) 147H 04/22/19 16:33: Bedside Glucose (Misc Panel) 171H CBC/BMP Laboratory Tests 04/22/19 06:08 Microbiology Microbiology 04/20/19 Gastrointestinal Tract Panel (PCR) - Final, Complete Mak Sharma MD Apr 22, 2019 17:29
[2019-04-22 22:00] VITALS: BP 146/78
[2019-04-22] MEDS: ATORVASTATIN 20 MG TAB PO SCH (22:06)
[2019-04-22] MEDS: ACETAMINOPHEN TAB 650MG DOSE (2X325MG) PO PRN (22:06)
[2019-04-22] MEDS: diazePAM 5 MG TAB PO PRN (22:06)
[2019-04-22] MEDS: tiZANidine 4 MG TAB PO SCH (22:07)
[2019-04-22] MEDS: zolPIDEM CR 6.25MG TABLET (AMBIEN CR) PO SCH (22:07)
[2019-04-22] MEDS ORDERED: LIDOCAINE 5% (LIDODERM) PATCH TD SCH (22:45)
[2019-04-23] MEDS: CEFTAROLINE FOSAMIL 200 MG in D5W 50 ML IV SCH ×2 (01:21→14:00)
[2019-04-23 06:00] VITALS: BP 143/74
[2019-04-23] MEDS: LEVOTHYROXINE 25MCG TABLET (0.025MG) PO SCH (06:02)
[2019-04-23 06:40] LABS: HEMATOCRIT 32.7 % (36.0-47.0); HEMOGLOBIN 10.4 g/dl (12.0-15.5); MEAN CORPUSCULAR HEMOGLOBIN 32.5 pg (27.0-33.0); MEAN CORPUSCULAR HGB CONC 31.8 g/dl (32.0-36.5); MEAN CORPUSCULAR VOLUME 102.2 fl (80.0-96.0); PLATELET COUNT, AUTOMATED 265 10^3/uL (150-450); WHITE BLOOD COUNT 4.8 10^3/uL (4.0-10.0)
[2019-04-23 07:02] LABS: ALBUMIN 2.7 GM/DL (3.2-5.2); BILIRUBIN,TOTAL 0.4 MG/DL (0.2-1.0); CALCIUM LEVEL 8.5 MG/DL (8.8-10.2); CREATININE FOR GFR 2.32 MG/DL (0.55-1.30); POTASSIUM SERUM 4.2 MEQ/L (3.5-5.1); TOTAL PROTEIN 6.8 GM/DL (6.4-8.2)
[2019-04-23] MEDS: **NOTE PATIENT COMMENT** MISC XX SCH (09:00)
[2019-04-23] MEDS: DOCUSATE SODIUM 100 MG CAP PO SCH ×2 (09:00→21:00)
[2019-04-23] MEDS: LIDOCAINE 2% JELLY 30 ML TOP SCH ×2 (09:00→21:24)
[2019-04-23] MEDS: MULTIVITAMINS/MINERALS THERAP 1 TAB PO SCH (09:10)
[2019-04-23] MEDS: MAGNESIUM OXIDE 400 MG TAB (MAG-OX) PO SCH (09:10)
[2019-04-23] MEDS: OMEPRAZOLE 20 MG CAP PO SCH (09:10)
[2019-04-23] MEDS: FEBUXOSTAT 40 MG TABLET (ULORIC) PO SCH (09:10)
[2019-04-23] MEDS: PARoxetine 20 MG TAB PO SCH (09:11)
[2019-04-23] MEDS: cloNIDine 0.1 MG TAB PO SCH (09:11)
[2019-04-23] MEDS: METOPROLOL TART 25 MG TABLET PO SCH ×3 (09:11→21:24)
[2019-04-23] MEDS: HumaLOG INSULIN (NovoLOG) PER UNIT SC SCH ×4 (09:11→21:00)
[2019-04-23 14:00] VITALS: BP 157/71
--- NOTE | 2019-04-23 20:28 | IPNPDOC ---
Subjective Date Seen The patient was seen on 04/23/19. Subjective Chief Complaint/HPI Nursing reports that Ms. Sam is concerned that she is not on her diuretic anymore. She reports that she needs it for her CHF. They also report that her ankles are getting a little swollen. General: Reports: ROS Unobtainable (the patient was sleeping when I saw her and I choose not to wake her) Objective Physical Examination General Exam: Positive: No Acute Distress (sleeping comfortably when I entered the rooom) ENT Exam: Positive: Other ENT (localized erythem over left proximal cheek with some swelling. Improbment of the forehead swelling, but persistent erythema. Desqumating scale on forehead and behind left ear. ) Chest Exam: Positive: Clear to auscultation, Normal air movement Heart Exam: Positive: Rate Normal, Irregular Rhythm, Normal S1, Normal S2 Abdomen Exam: Positive: Normal bowel sounds, Soft; Negative: Tenderness Extremity Exam: Positive: Edema (there is trace bilateral lower extremity pitting edema) Assessment /Plan Problems (1) Preseptal cellulitis Status: Acute Problem Text: Ceftaroline IV day #4 - Adjusted dose for decline in renal funct ion. Benadryl cream prn itching (2) CHELE (acute kidney injury) Status: Acute Problem Text: Finally her creatinine has started to come down. Unfortunately, she is getting a little lower extremity edema. I stopped her IVF, but requested that nursing put TEDs on. I think the compression from the stocking may help revascularize some of the fluid and continue to support her improved renal function. (3) Chronic kidney disease, stage 3 Status: Chronic Response to Treatment: Worse Problem Text: Renal function started to improve today. Baseline creatinine ~ 1.5 (4) Chronic atrial fibrillation Status: Chronic Problem Text: Eliquis on hold due to anemia and heme +. Will resume today. (5) Heme positive stool Status: Acute Problem Text: Likely from bleeding hemorrhoids per the colonoscopy. (6) Type 2 diabetes mellitus Status: Chronic Response to Treatment: Stable Problem Text: RISS. Currently NPO monitor FS q 6 hrs. Novolin N 22 units at bedtime daily at home. Resume long acting insulin when taking po. Last hgba1c 7.6 on 01/2019 (7) COPD (chronic obstructive pulmonary disease) Status: Chronic (8) Coronary artery disease Status: Chronic (9) Acquired hypothyroidism Status: Chronic Problem Text: on home dose (10) Iron deficiency anemia secondary to inadequate dietary iron intake Status: Chronic Problem Text: chronic anemia from medical disease. no with concern for GIB (11) Essential hypertension Status: Chronic Response to Treatment: Stable (12) Hyperlipidemia Status: Chronic Response to Treatment: Stable Plan/VTE VTE Prophylaxis Ordered?: Yes (Eliquis) VS, I&O, 24H, Fishbone Vital Signs/I&O Vital Signs Date Time Temp Pulse Resp B/P (MAP) Pulse Ox O2 Delivery O2 Flow Rate FiO2 04/23/19 17:44 54 157/71 04/23/19 14:00 98.7 20 90 Room Air 04/22/19 10:15 2 I&O- Last 24 Hours up to 6 AM 04/23/19 06:00 Intake Total 4250 ml Balance 4250 ml Laboratory Data 24H LABS Laboratory Tests 2 04/22/19 20:58: Bedside Glucose (Misc Panel) 155H 04/23/19 05:57: Nucleated Red Blood Cells % (auto) 0.0, Anion Gap 8, Glomerular Filtration Rate 22.0L, Calcium Level 8.5L, Total Bilirubin 0.4, Aspartate Amino Transf (AST/SGOT) 52H, Alanine Aminotransferase (ALT/SGPT) 40, Alkaline Phosphatase 191H, Total Protein 6.8, Albumin 2.7L, Albumin/Globulin Ratio 0.66L 04/23/19 11:44: Bedside Glucose (Misc Panel) 167H 04/23/19 17:00: Bedside Glucose (Misc Panel) 154H 04/23/19 20:05: Bedside Glucose (Misc Panel) 127H CBC/BMP Laboratory Tests 04/23/19 05:57 Microbiology Microbiology 04/20/19 Gastrointestinal Tract Panel (PCR) - Final, Complete Mak hSarma MD Apr 23, 2019 20:28
[2019-04-23] MEDS: zolPIDEM CR 6.25MG TABLET (AMBIEN CR) PO SCH (21:00)
[2019-04-23] MEDS: tiZANidine 4 MG TAB PO SCH (21:17)
[2019-04-23] MEDS: ATORVASTATIN 20 MG TAB PO SCH (21:17)
[2019-04-23 22:00] VITALS: BP 145/61
[2019-04-24] MEDS: CEFTAROLINE FOSAMIL 200 MG in D5W 50 ML IV SCH (02:39)
[2019-04-24] MEDS: diazePAM 5 MG TAB PO PRN ×2 (02:47→20:44)
[2019-04-24 06:00] VITALS: BP 149/59
[2019-04-24 06:14] LABS: BASO % 0.4 % (0.0-1.0); EOS # 0.1 10^3/uL (0.0-0.5); HEMATOCRIT 31.6 % (36.0-47.0); HEMOGLOBIN 9.8 g/dl (12.0-15.5); MEAN CORPUSCULAR HEMOGLOBIN 32.3 pg (27.0-33.0); MEAN CORPUSCULAR VOLUME 104.3 fl (80.0-96.0); MONO # 0.5 10^3/uL (0.0-0.8); MONO % 9.8 % (0.0-5.0); PLATELET COUNT, AUTOMATED 250 10^3/uL (150-450); RED BLOOD COUNT 3.03 10^6/uL (4.00-5.40); WHITE BLOOD COUNT 4.6 10^3/uL (4.0-10.0)
[2019-04-24] MEDS: LEVOTHYROXINE 25MCG TABLET (0.025MG) PO SCH (06:14)
[2019-04-24 06:36] LABS: ALBUMIN 2.5 GM/DL (3.2-5.2); CALCIUM LEVEL 8.9 MG/DL (8.8-10.2); CREATININE FOR GFR 1.67 MG/DL (0.55-1.30); GLOMERULAR FILTRATION RATE 32.2 (>39); PHOSPHORUS LEVEL 3.4 MG/DL (2.5-4.9)
[2019-04-24] MEDS: **NOTE PATIENT COMMENT** MISC XX SCH (09:00)
[2019-04-24] MEDS: HumaLOG INSULIN (NovoLOG) PER UNIT SC SCH ×4 (09:08→20:47)
[2019-04-24] MEDS: APIXABAN 5 MG TAB (ELIQUIS) PO SCH ×2 (09:08→20:46)
[2019-04-24] MEDS: DOCUSATE SODIUM 100 MG CAP PO SCH ×2 (09:10→20:46)
[2019-04-24] MEDS: cloNIDine 0.1 MG TAB PO SCH (09:10)
[2019-04-24] MEDS: OMEPRAZOLE 20 MG CAP PO SCH (09:10)
[2019-04-24] MEDS: MULTIVITAMINS/MINERALS THERAP 1 TAB PO SCH (09:10)
[2019-04-24] MEDS: PARoxetine 20 MG TAB PO SCH (09:10)
[2019-04-24] MEDS: MAGNESIUM OXIDE 400 MG TAB (MAG-OX) PO SCH (09:10)
[2019-04-24] MEDS: METOPROLOL TART 25 MG TABLET PO SCH ×3 (09:11→20:46)
[2019-04-24] MEDS: FEBUXOSTAT 40 MG TABLET (ULORIC) PO SCH (09:13)
[2019-04-24] MEDS: LIDOCAINE 2% JELLY 30 ML TOP SCH ×2 (09:13→20:47)
--- NOTE | 2019-04-24 10:55 | IPNPDOC ---
Subjective Date Seen The patient was seen on 04/24/19. Subjective Chief Complaint/HPI Pt this morning without new concerns. She states that she has itching to the L side of her face from the dry scaly skin, she has not been applying any moisturizer to her face. General: Denies: Fatigue Constitutional: Denies: Chills, Fever Pulmonary: Denies: Dyspnea, Cough Cardiovascular: Denies: Chest Pain, Palpitations Gastrointestinal: Denies: Nausea, Vomiting, Diarrhea Musculoskeletal: Denies: Neck Pain Neurological: Denies: Weakness Psych: Reports: Mood Normal Objective Physical Examination General Exam: Positive: Alert, No Acute Distress ENT Exam: Positive: Other ENT (localized erythem over left proximal cheek with some swelling. Improvement of the forehead swelling, mild erythema. De squamating scale on forehead and behind left ear. ) Chest Exam: Positive: Clear to auscultation, Normal air movement Heart Exam: Positive: Rate Normal, Irregular Rhythm, Normal S1, Normal S2 Abdomen Exam: Positive: Normal bowel sounds, Soft; Negative: Tenderness Extremity Exam: Positive: Edema (there is trace bilateral lower extremity pitting edema) Assessment /Plan Problems (1) Preseptal cellulitis Status: Acute Problem Text: Ceftaroline IV day #5 - Adjusted dose for decline in renal function. Benadryl cream prn itching (2) CHELE (acute kidney injury) Status: Acute Problem Text: 04/24 Scr has started to improve, 2.32 down to 1.67 today, cont to monitor, adjust IV abx as appropriate. 04/23 Finally her creatinine has started to come down. Unfortunately, she is getting a little lower extremity edema. I stopped her IVF, but requested that jared bermudez put TEDs on. I think the compression from the stocking may help revascularize some of the fluid and continue to support her improved renal function. (3) Chronic kidney disease, stage 3 Status: Chronic Response to Treatment: Worse Problem Text: Renal function started to improve today. Baseline creatinine ~ 1.5 (4) Chronic atrial fibrillation Status: Chronic Problem Text: 04/23 Eliquis on hold due to anemia and heme +. Will resume tod ay. (5) Heme positive stool Status: Acute Problem Text: Likely from bleeding hemorrhoids per the colonoscopy. (6) Type 2 diabetes mellitus Status: Chronic Response to Treatment: Stable Problem Text: RISS. Currently NPO monitor FS q 6 hrs. Novolin N 22 units at bedtime daily at home. Resume long acting insulin when taking po. Last hgba1c 7.6 on 01/2019 (7) COPD (chronic obstructive pulmonary disease) Status: Chronic (8) Coronary artery disease Status: Chronic (9) Acquired hypothyroidism Status: Chronic Problem Text: on home dose (10) Iron deficiency anemia secondary to inadequate dietary iron intake Status: Chronic Problem Text: chronic anemia from medical disease. no with concern for GIB (11) Essential hypertension Status: Chronic Response to Treatment: Stable (12) Hyperlipidemia Status: Chronic Response to Treatment: Stable Plan/VTE VTE Prophylaxis Ordered?: Yes (Eliquis) VS, I&O, 24H, Fishbone Vital Signs/I&O Vital Signs Date Time Temp Pulse Resp B/P (MAP) Pulse Ox O2 Delivery O2 Flow Rate FiO2 04/24/19 09:11 76 176/80 04/24/19 06:00 98.5 21 92 04/23/19 22:00 Room Air 04/22/19 10:15 2 I&O- Last 24 Hours up to 6 AM 04/24/19 06:00 Intake Total 1830 ml Output Total 0 ml Balance 1830 ml Laboratory Data 24H LABS Laboratory Tests 2 04/23/19 11:44: Bedside Glucose (Misc Panel) 167H 04/23/19 17:00: Bedside Glucose (Misc Panel) 154H 04/23/19 20:05: Bedside Glucose (Misc Panel) 127H 04/24/19 06:00: Immature Granulocyte % (Auto) 1.8, Neutrophils (%) (Auto) 65.0, Lymphocytes (%) (Auto) 21.0L, Monocytes (%) (Auto) 9.8H, Eosinophils (%) (Auto) 2.0, Basophils (%) (Auto) 0.4, Neutrophils # (Auto) 3.0, Lymphocytes # (Auto) 1.0L, Monocytes # (Auto) 0.5, Eosinophils # (Auto) 0.1, Basophils # (Auto) 0.0, Nucleated Red Blood Cells % (auto) 0.0, Anion Gap 9, Glomerular Filtration Rate 32.2L, Calcium Level 8.9, Phosphorus Level 3.4, Albumin 2.5L CBC/BMP Laboratory Tests 04/24/19 06:00 Microbiology Microbiology 04/20/19 Gastrointestinal Tract Panel (PCR) - Final, Complete SANDRITA ENRIQUEZ PA-C Apr 24, 2019 10:55
[2019-04-24 12:00] VITALS: BP 123/80
[2019-04-24 14:00] VITALS: BP_SYST 132; BP_SYST 144; BP_DIAS 63; BP_DIAS 74
--- NOTE | 2019-04-24 16:52 | CR ---
DATE OF CONSULTATION: 04/21/2019 This is a 73-year white female who was admitted to [facility] ([facility]) for evaluation of left-sided facial swelling with eye pain and bloody diarrhea for approximately two months. The patient has had apparent multiple falls. She states that she has had chronic issues with diarrhea. No apparent fevers, night sweats, shaking chills or weight loss. The patient has had a previous history in the past of Clostridium (C) difficile which was resolved with a stool transplant. REVIEW OF SYSTEMS: 12-point review of systems was negative to the above problem. PAST MEDICAL HISTORY: Positive for: 1. Chronic coronary artery disease status post cardiac bypass. 2. Chronic obstructive pulmonary disease (COPD), on oxygen-dependent. 3. Chronic renal insufficiency. 4. Atrial fibrillation, on Eliquis. The patient has chronic diastolic congestive heart failure (CHF). 5. Gout. 6. Osteoporosis. 7. Hypothyroidism. 8. Anxiety and depression. 9. Chronic back pain. PAST SURGICAL HISTORY: Positive for: 1. Tonsillectomy. 2. Tubal ligation. 3. Cholecystectomy. 4. Appendectomy. 5. Hysterectomy. SOCIAL HISTORY: Cigarettes: The patient is a former smoker. No previous history of alcohol abuse. FAMILY HISTORY: Noncontributory to the above problem. ALLERGIES: As previously listed. PHYSICAL EXAMINATION: GENERAL: This is a well-developed, well-nourished, white female with swelling under and around her left eye. Chest is clear. CARDIOVASCULAR: Examination showed a regular rhythm. No murmurs or gallops. Normal physiological split, S1, S2. ABDOMEN: Soft, nontender. No masses, guarding, rebound, or hepatosplenomegaly. Bowel sounds positive. LABORATORY STUDIES: On admission shows a CBC with a white count of 4700, hemoglobin and hematocrit is 10.9 and 34.4. The patient's anticoagulation has been stopped. INR is 1.50. Chemistry showed a normal bilirubin of 0.4, AST of 52, alkaline phosphatase of 191. Imaging studies on admission were noncontributory to GI issues. ANALYSIS: Mild anemia, rectal bleeding and diarrhea of unknown etiology at the present time. The plan will be to set the patient up for an upper and lower endoscopy after proper bowel preparation. PLAN: 1. Bowel preparation. 2. Esophagogastroduodenoscopy (EGD) and colonoscopy will be arranged.
[2019-04-24] MEDS: CEFTAROLINE FOSAMIL 400 MG in D5W MINI-BAG PLUS 50 ML IV SCH (17:15)
[2019-04-24] MEDS ORDERED: FUROSEMIDE 80 MG TAB PO ONE (18:00)
[2019-04-24] MEDS: LEVALBUTEROL HFA 45MCG/ACT 15 GM INHALER INH SCH (18:44)
--- NOTE | 2019-04-24 18:53 | REP ---
Portable chest x-ray: Single view: History: Increased shortness of breath. Comparison study: April 18, 2019. Findings: Heart is mildly prominent. There is a diffuse moderate interstitial pulmonary edema pattern. There is linear fibrosis in the left perihilar region and in the lung bases. No pleural effusion is seen. Impression: Moderate diffuse interstitial pulmonary edema pattern. Bibasilar fibrosis. Mildly prominent heart. Electronically Signed by Alex Street MD 04/24/2019 06:59 P
[2019-04-24] MEDS ORDERED: methylPREDNISolone INJ 125 MG/2 ML VIAL (J2930) IV ONE (19:00)
[2019-04-24] MEDS: FUROSEMIDE 100 MG/10 ML VIAL (J1940) IV SCH (19:07)
[2019-04-24] MEDS: ATORVASTATIN 20 MG TAB PO SCH (20:45)
[2019-04-24] MEDS: NITROGLYCERIN 2% OINT 1 GM *U/D* PKT TOP SCH (20:45)
[2019-04-24] MEDS: tiZANidine 4 MG TAB PO SCH (20:46)
[2019-04-24] MEDS: zolPIDEM CR 6.25MG TABLET (AMBIEN CR) PO SCH (20:46)
[2019-04-24 22:00] VITALS: BP 124/77
[2019-04-25] MEDS: NITROGLYCERIN 2% OINT 1 GM *U/D* PKT TOP SCH ×3 (02:23→14:00)
[2019-04-25] MEDS: LEVALBUTEROL HFA 45MCG/ACT 15 GM INHALER INH SCH ×3 (02:34→13:24)
[2019-04-25] MEDS: CEFTAROLINE FOSAMIL 400 MG in D5W MINI-BAG PLUS 50 ML IV SCH (05:19)
[2019-04-25 06:00] VITALS: BP 154/68
[2019-04-25] MEDS ORDERED: ALENDRONATE 35MG TABLET PO SCH (06:00)
[2019-04-25] MEDS: LEVOTHYROXINE 25MCG TABLET (0.025MG) PO SCH (06:21)
[2019-04-25 07:03] LABS: HEMATOCRIT 32.4 % (36.0-47.0); HEMOGLOBIN 10.7 g/dl (12.0-15.5); MEAN CORPUSCULAR HEMOGLOBIN 32.7 pg (27.0-33.0); MEAN CORPUSCULAR VOLUME 99.1 fl (80.0-96.0); PLATELET COUNT, AUTOMATED 262 10^3/uL (150-450); RED BLOOD COUNT 3.27 10^6/uL (4.00-5.40); WHITE BLOOD COUNT 6.9 10^3/uL (4.0-10.0)
[2019-04-25 07:33] LABS: CALCIUM LEVEL 9.6 MG/DL (8.8-10.2); CREATININE FOR GFR 1.61 MG/DL (0.55-1.30); GLOMERULAR FILTRATION RATE 33.6 (>39); POTASSIUM SERUM 4.2 MEQ/L (3.5-5.1)
[2019-04-25] MEDS: FUROSEMIDE 100 MG/10 ML VIAL (J1940) IV SCH (08:11)
[2019-04-25] MEDS: HumaLOG INSULIN (NovoLOG) PER UNIT SC SCH ×2 (08:12→12:58)
[2019-04-25] MEDS: OMEPRAZOLE 20 MG CAP PO SCH (08:14)
[2019-04-25] MEDS: PARoxetine 20 MG TAB PO SCH (08:15)
[2019-04-25] MEDS: MULTIVITAMINS/MINERALS THERAP 1 TAB PO SCH (08:15)
[2019-04-25] MEDS: DOCUSATE SODIUM 100 MG CAP PO SCH (08:15)
[2019-04-25 08:17] VITALS: BP 144/78
[2019-04-25] MEDS: FEBUXOSTAT 40 MG TABLET (ULORIC) PO SCH (08:17)
[2019-04-25] MEDS: cloNIDine 0.1 MG TAB PO SCH (08:17)
[2019-04-25] MEDS: METOPROLOL TART 25 MG TABLET PO SCH (08:17)
[2019-04-25] MEDS: MAGNESIUM OXIDE 400 MG TAB (MAG-OX) PO SCH (08:18)
[2019-04-25] MEDS: LIDOCAINE 2% JELLY 30 ML TOP SCH (08:18)
[2019-04-25] MEDS: APIXABAN 5 MG TAB (ELIQUIS) PO SCH (08:18)
[2019-04-25] MEDS: **NOTE PATIENT COMMENT** MISC XX SCH (08:40)
[2019-04-25] MEDS ORDERED: DOXY100C PO (10:16)
--- NOTE | 2019-04-25 14:04 | DSES ---
DATE OF ADMISSION: 04/19/2019 DATE OF DISCHARGE: 04/25/2019 HISTORY: This is a 73-year-old female patient who presented to [facility] emergency room after being sent from the neurology clinic with left facial swelling without eye pain as well as bloody diarrhea for 2 months and multiple falls at home. She had been previously diagnosed with preseptal cellulitis and sent home on cephalexin. She was failing to improve and therefore was sent to the hospital for further management. She was started on IV ceftaroline and GI was consulted for anemia and gastrointestinal (GI) bleeding. During her hospitalization, she has remained medically stable. She has responded to IV ceftaroline. She had no leukocytosis on admission. She did develop acute renal failure, although this has since normalized. This was unable to be cultured, although she has responded to ceftaroline. She will transition to oral doxycycline. Secondary to renal failure, her Lasix was held. This was restarted yesterday although she developed acute shortness of breath after this. She was given IV Lasix. ProBNP was checked. It was 13, 482. Her respiratory status has since improved. She has been seen by physical therapy, speech therapy, occupational therapy who feel as though she is safe to be discharged home. DISCHARGE DIAGNOSES INCLUDE: preseptal cellulitis. Lower GI bleeding with anemia likely secondary to hemorrhoids with a negative colonoscopy. Acute kidney injury on chronic kidney disease stage III. Chronic atrial fibrillation Type 2 diabetes. Chronic obstructive pulmonary disease (COPD). Coronary artery disease. Hypothyroidism. Iron deficiency anemia. Hypertension. Hyperlipidemia. DISCHARGE MEDICATIONS INCLUDE: - Doxycycline 100 mg by mouth twice daily times 7 days - albuterol sulfate two puffs inhaled every 4 hours as needed for shortness of breath - alendronate 35 mg once weekly - Eliquis 5 mg by mouth twice a day - aspirin 81 mg daily - Lipitor 80 mg nightly - clonidine 0.1 mg by mouth daily - colchicine 0.6 mg by mouth twice a day as needed for gout - estrogen 0.3 mg every other day - diazepam 5 mg by mouth twice a day as needed for anxiety - vitamin D 50,000 units weekly - Uloric 40 mg daily - furosemide 40 mg twice daily - Novolin N 20 units subcu twice a day - Novolin R subcu twice a day sliding scale - Kwesi [place] 3 one capsule daily - levothyroxine 25 mcg daily - lidocaine topically twice daily as needed - magnesium oxide 400 mg daily - metoprolol 25 mg by mouth three times a day - multivitamin one tablet daily - omeprazole 20 mg daily - Zofran 4 mg three times a day daily as needed for nausea - oxymetazoline two sprays intranasally as needed for nasal congestion - paroxetine 20 mg daily - ramipril 2.5 mg by mouth twice a day - tizanidine 4 mg by mouth nightly and twice a day as needed for muscle spasms - vitamin E 400 mg daily - zolpidem 6.25 mg by mouth nightly DISCHARGE PLAN: Followup with Angi Galindo PA-C in 1 week. Activity should be as tolerated. Diet is consistent carbohydrate, no added salt. edited: 04/26/2019 0717 tkjean claude PLATT
== END 2019-04-25 14:09 | disposition home or self-care (01) | DRG 378 ==
LOC: M ED 17:05 → M ED INP 21:35 → ENRESERVDT 22:07 → ENRESERVTM 22:07 → M MSPAV 22:55
PROVIDERS: ADMIT Internal Medicine; ATTEND Family Medicine
PROC: 0DJD8ZZ Inspection of Lower Intestinal Tract, Via Natural or Artificial Opening Endoscopic (ICD-10-PCS; 2019-04-22)
PROC: 0DJ08ZZ Inspection of Upper Intestinal Tract, Via Natural or Artificial Opening Endoscopic (ICD-10-PCS; principal; 2019-04-22 10:00)
DX: K92.2 Gastrointestinal hemorrhage, unspecified (principal); L03.213 Periorbital cellulitis; I13.0 Hypertensive heart and chronic kidney disease with heart failure and stage 1 through stage 4 chronic kidney disease, or unspecified chronic kidney disease; I50.32 Chronic diastolic (congestive) heart failure; I48.20 Chronic atrial fibrillation, unspecified; N17.9 Acute kidney failure, unspecified; N18.3 Chronic kidney disease, stage 3 (moderate); D50.9 Iron deficiency anemia, unspecified; K64.8 Other hemorrhoids; Z79.01 Long term (current) use of anticoagulants; M81.0 Age-related osteoporosis without current pathological fracture; K21.9 Gastro-esophageal reflux disease without esophagitis; E03.9 Hypothyroidism, unspecified; F41.9 Anxiety disorder, unspecified; F32.9 Major depressive disorder, single episode, unspecified; M10.9 Gout, unspecified; I25.10 Atherosclerotic heart disease of native coronary artery without angina pectoris; J44.9 Chronic obstructive pulmonary disease, unspecified; Z99.81 Dependence on supplemental oxygen; M54.5 Low back pain; Z87.891 Personal history of nicotine dependence; R29.6 Repeated falls; E87.6 Hypokalemia; E66.9 Obesity, unspecified; Z68.37 Body mass index [BMI] 37.0-37.9, adult; Z79.899 Other long term (current) drug therapy; Z79.82 Long term (current) use of aspirin; Z88.2 Allergy status to sulfonamides; Z88.5 Allergy status to narcotic agent; Z88.8 Allergy status to other drugs, medicaments and biological substances; K44.9 Diaphragmatic hernia without obstruction or gangrene; K57.30 Diverticulosis of large intestine without perforation or abscess without bleeding

== ENCOUNTER → 2019-05-02 | Outpatient (REF) | payer MEDICARE, OTHER ==
[~2019-05-02] MED LIST changes: +CEPH500C PO; +DOXY100C PO; +MAGN400T2 PO; +PX N0.05; +VITA400C56 PO
[2019-05-02 19:41] LABS: BASO # 0.1 10^3/uL (0.0-0.2); BASO % 1.3 % (0.0-1.0); EOS # 0.2 10^3/uL (0.0-0.5); EOS % 3.3 % (0.0-3.0); HEMATOCRIT 36.5 % (36.0-47.0); HEMOGLOBIN 11.6 g/dl (12.0-15.5); LYMPH # 1.3 10^3/uL (1.5-5.0); LYMPH % 20.9 % (24.0-44.0); MEAN CORPUSCULAR HEMOGLOBIN 32.4 pg (27.0-33.0); MEAN CORPUSCULAR HGB CONC 31.8 g/dl (32.0-36.5); MONO # 0.6 10^3/uL (0.0-0.8); MONO % 10.2 % (0.0-5.0); NEUTROPHILS # 3.8 10^3/uL (1.5-8.5); PLATELET COUNT, AUTOMATED 349 10^3/uL (150-450); RED BLOOD COUNT 3.58 10^6/uL (4.00-5.40)
[2019-05-02 20:10] LABS: ALBUMIN 3.3 GM/DL (3.2-5.2); BILIRUBIN,TOTAL 0.6 MG/DL (0.2-1.0); CALCIUM LEVEL 8.2 MG/DL (8.8-10.2); CREATININE FOR GFR 1.48 MG/DL (0.55-1.30); POTASSIUM SERUM 3.5 MEQ/L (3.5-5.1); TOTAL PROTEIN 7.4 GM/DL (6.4-8.2)
== END ==
LOC: M SFHCADAM 14:55
PROVIDERS: ATTEND Physician Assistant Medical
DX: N18.3 Chronic kidney disease, stage 3 (moderate) (principal); I25.10 Atherosclerotic heart disease of native coronary artery without angina pectoris; E03.9 Hypothyroidism, unspecified; I50.32 Chronic diastolic (congestive) heart failure

== ENCOUNTER 2019-06-09 14:00 | Outpatient (RCR) | payer MEDICARE, OTHER | END 2019-06-10 | LOC: M PT 14:00 | PROVIDERS: ATTEND Physician Assistant Medical | DX: R26.81 Unsteadiness on feet (principal) ==

== ENCOUNTER → 2019-07-11 | Outpatient (RCR) | payer MEDICARE, OTHER | END | disposition home or self-care (01) | LOC: M PT 06-13 14:00 → M OT 12:31 | PROVIDERS: ATTEND Physician Assistant Medical | DX: R26.81 Unsteadiness on feet (principal) ==

== ENCOUNTER → 2019-08-01 | Outpatient (CLI) | payer MEDICARE, OTHER ==
[~2019-08-01] MED LIST changes: +VITA-243 PO; -VITA500T PO
--- NOTE | 2019-08-01 13:03 | REP ---
REASON FOR EXAM: Chronic back pain. Comparison examination is 07/26/2017. There is a grade 2 L4 upon L5 spondylolisthesis. This has increased slightly compared to the prior exam. There is posterior disc space narrowing at every level, status quo, with universal L5-S1 disc space narrowing, status quo. Vertebral body height is again seen to be within normal limits and unchanged. Minimal anterior lipping is seen, status quo. The pedicles are intact bilaterally. Degenerative facet joint changes are again seen at every level bilaterally. Aortic calcifications are noted, status quo. IMPRESSION: Chronic changes, as described above. Electronically Signed by Emigdio Gilliland DO 08/01/2019 01:26 P
== END ==
LOC: M ADAMS 10:04
PROVIDERS: ATTEND Physician Assistant Medical
DX: M51.36 Other intervertebral disc degeneration, lumbar region (principal); M51.37 Other intervertebral disc degeneration, lumbosacral region; M54.5 Low back pain; G89.29 Other chronic pain; M10.9 Gout, unspecified; K21.9 Gastro-esophageal reflux disease without esophagitis; N18.3 Chronic kidney disease, stage 3 (moderate); D50.8 Other iron deficiency anemias; E03.9 Hypothyroidism, unspecified; E11.22 Type 2 diabetes mellitus with diabetic chronic kidney disease
CPT/HCPCS: 72110; 80053; 80061; 82306; 82728; 83036; 83550; 83735; 84439; 84443; 84550; 85025; 85652; 93005; G0463

== ENCOUNTER → 2019-08-01 | Outpatient (REF) | payer MEDICARE, OTHER ==
[2019-08-01 13:05] LABS: BASO # 0.1 10^3/uL (0.0-0.2); BASO % 0.5 % (0.0-1.0); EOS % 0.4 % (0.0-3.0); HEMATOCRIT 40.3 % (36.0-47.0); HEMOGLOBIN 14.3 g/dl (12.0-15.5); LYMPH # 1.2 10^3/uL (1.5-5.0); LYMPH % 10.8 % (24.0-44.0); MEAN CORPUSCULAR HEMOGLOBIN 32.9 pg (27.0-33.0); MEAN CORPUSCULAR HGB CONC 35.5 g/dl (32.0-36.5); MEAN CORPUSCULAR VOLUME 92.9 fl (80.0-96.0); MONO # 1.1 10^3/uL (0.0-0.8); NEUTROPHILS # 8.6 10^3/uL (1.5-8.5); PLATELET COUNT, AUTOMATED 307 10^3/uL (150-450); RED BLOOD COUNT 4.34 10^6/uL (4.00-5.40); WHITE BLOOD COUNT 11.1 10^3/uL (4.0-10.0)
[2019-08-01 13:37] LABS: ALBUMIN 3.9 GM/DL (3.2-5.2); BILIRUBIN,TOTAL 0.6 MG/DL (0.2-1.0); CALCIUM LEVEL 10.5 MG/DL (8.8-10.2); CHOLESTEROL RISK RATIO 3.666 (<5); CREATININE FOR GFR 1.92 MG/DL (0.55-1.30); ERYTHROCYTE SEDIMENTATION RATE 41 mm/hr (0-30); FREE T4 1.74 NG/DL (0.76-1.46); GLOMERULAR FILTRATION RATE 27.4 (>39); MAGNESIUM LEVEL 1.4 MG/DL (1.8-2.4); PERCENT SATURATION 41.3 % (13.2-45.0); POTASSIUM SERUM 3.4 MEQ/L (3.5-5.1); THYROID STIMULATING HORMONE 0.016 uIU/ML (0.358-3.740); TOTAL 25(OH) VITAMIN D 43.2 NG/ML (30.0-100.0); TOTAL PROTEIN 8.1 GM/DL (6.4-8.2); URIC ACID 5.2 MG/DL (2.6-6.0)
[2019-08-01 14:22] LABS: HEMOGLOBIN A1c 11.6 %
== END ==
LOC: M SFHCADAM 09:41
PROVIDERS: ATTEND Physician Assistant Medical
DX: M10.9 Gout, unspecified (principal); K21.9 Gastro-esophageal reflux disease without esophagitis; N18.3 Chronic kidney disease, stage 3 (moderate); D50.8 Other iron deficiency anemias; E03.9 Hypothyroidism, unspecified; E11.22 Type 2 diabetes mellitus with diabetic chronic kidney disease

== ENCOUNTER → 2019-08-15 | Outpatient (REF) | payer MEDICARE, OTHER ==
[~2019-08-15] MED LIST changes: +KEFL250C11 PO; +LIDO5CRE6 TOP; +PATIENT COMMENTS; +PAXI20TA29 PO
[2019-08-15 13:38] LABS: ALBUMIN 3.3 GM/DL (3.2-5.2); BILIRUBIN,TOTAL 1.1 MG/DL (0.2-1.0); CALCIUM LEVEL 9.4 MG/DL (8.8-10.2); CREATININE FOR GFR 1.94 MG/DL (0.55-1.30); GLOMERULAR FILTRATION RATE 27.1 (>39); MAGNESIUM LEVEL 1.6 MG/DL (1.8-2.4); POTASSIUM SERUM 4.3 MEQ/L (3.5-5.1); TOTAL PROTEIN 7.5 GM/DL (6.4-8.2)
== END ==
LOC: M SFHCADAM 11:29
PROVIDERS: ATTEND Physician Assistant Medical
DX: N18.3 Chronic kidney disease, stage 3 (moderate) (principal); E83.42 Hypomagnesemia; E83.52 Hypercalcemia
CPT/HCPCS: 80053; 83735; G0463

== ENCOUNTER 2019-08-27 00:14 | Observation (INO) | payer MEDICARE, OTHER ==
[~2019-08-27] VITALS: Ht 152.4 cm; Wt 81.8 kg
[~2019-08-27 00:14] MED LIST changes: -KEFL250C11 PO; -LIDO5CRE6 TOP; -PATIENT COMMENTS; -PAXI20TA29 PO
[2019-08-27 00:55] LABS: BASO % 0.7 % (0.0-1.0); EOS # 0.1 10^3/uL (0.0-0.5); EOS % 1.6 % (0.0-3.0); HEMATOCRIT 40.1 % (36.0-47.0); HEMOGLOBIN 13.4 g/dl (12.0-15.5); LYMPH # 0.8 10^3/uL (1.5-5.0); LYMPH % 13.8 % (24.0-44.0); MEAN CORPUSCULAR HEMOGLOBIN 32.4 pg (27.0-33.0); MEAN CORPUSCULAR HGB CONC 33.4 g/dl (32.0-36.5); MEAN CORPUSCULAR VOLUME 96.9 fl (80.0-96.0); MONO # 0.8 10^3/uL (0.0-0.8); NEUTROPHILS # 3.8 10^3/uL (1.5-8.5); NEUTROPHILS % 69.7 % (36.0-66.0); PLATELET COUNT, AUTOMATED 423 10^3/uL (150-450); RED BLOOD COUNT 4.14 10^6/uL (4.00-5.40); WHITE BLOOD COUNT 5.5 10^3/uL (4.0-10.0)
[2019-08-27] MEDS ORDERED: METOPROLOL TART 25 MG TABLET PO ONE (01:15)
[2019-08-27 01:21] LABS: ALBUMIN 3.1 GM/DL (3.2-5.2); ALT/SGPT 19 U/L (12-78); BILIRUBIN,DIRECT 0.3 MG/DL (0.0-0.2); BILIRUBIN,TOTAL 0.9 MG/DL (0.2-1.0); BLOOD UREA NITROGEN 27 MG/DL (7-18); CALCIUM LEVEL 8.9 MG/DL (8.8-10.2); CARBON DIOXIDE LEVEL 28 MEQ/L (21-32); CHLORIDE LEVEL 96 MEQ/L (98-107); CK-MB VALUE MASS < 1.0 NG/ML (<3.6); CPK CREATINE PHOSPHOKINASE 132 U/L (26-192); CREATININE FOR GFR 2.21 MG/DL (0.55-1.30); GLOMERULAR FILTRATION RATE 23.3 (>39); GLUCOSE, FASTING 285 MG/DL (70-100); LIPASE 162 U/L (73-393); MB/CK RELATIVE INDEX 0.76 (< OR =4); POTASSIUM SERUM 4.1 MEQ/L (3.5-5.1); SODIUM LEVEL 133 MEQ/L (136-145); TOTAL PROTEIN 8.1 GM/DL (6.4-8.2); TROPONIN I < 0.02 NG/ML (< 0.10)
[2019-08-27] MEDS ORDERED: METOPROLOL 5 MG/5 ML VIAL IV STA (01:46)
[2019-08-27] MEDS ORDERED: ACETAMINOPHEN TAB 650MG DOSE (2X325MG) PO PRN (02:15)
--- NOTE | 2019-08-27 02:25 | REPVR ---
PROCEDURE INFORMATION: Exam: CT Abdomen And Pelvis Without Contrast Exam date and time: 08/27/2019 2:05 AM Age: 73 years old Clinical indication: Abdominal pain; Additional info: Dizziness, hematuria, elev. CR TECHNIQUE: Imaging protocol: Computed tomography of the abdomen and pelvis without contrast. Radiation optimization: All CT scans at this facility use at least one of these dose optimization techniques: automated exposure control; mA and/or kV adjustment per patient size (includes targeted exams where dose is matched to clinical indication); or iterative reconstruction. COMPARISON: CT ABD PELVIS WITH CONTRAST 11/10/2015 7:27 AM FINDINGS: Lungs: No suspicious mass or airspace process in the visualized lung bases. Liver: Noncontrast liver shows no obvious lesion. Gallbladder and bile ducts: Gallbladder is surgically absent. Pancreas: Noncontrast pancreas shows no obvious mass or adjacent fluid. Spleen: Noncontrast spleen shows no obvious focal deformity. Adrenals: Left adrenal adenoma measuring 2 cm, stable. Normal sized right adrenal Kidneys and ureters: Kidneys show no stone or hydronephrosis. Stomach and bowel: No evidence of small bowel obstruction. Diverticular changes are present within the colon without inflammation. Appendix: Appendix is surgically absent. Intraperitoneal space: No pneumoperitoneum. Vasculature: Atherosclerotic change present in the aorta, without aneurysm. Lymph nodes: No enlarged lymph nodes. Bladder: Urinary bladder appears normal. Reproductive: Uterus is surgically absent. Bones/joints: Degenerative changes are seen in the lumbar spine with disc height loss, endplate osteophytes and hypertrophic facet arthropathy. Soft tissues: Fat containing umbilical hernia is present. Other findings: Evaluation of solid organs is limited without IV contrast. IMPRESSION: 1. No evidence of obstructive uropathy. No explanation for hematuria. 2. Incidental benign left adrenal adenoma Electronically signed by: Masoud Spivey On 08/27/2019 02:24:48 AM
[2019-08-27 03:47] LABS: MAGNESIUM LEVEL 1.4 MG/DL (1.8-2.4)
[2019-08-27] MEDS ORDERED: LIDO5CRE6 TOP (03:49)
[2019-08-27] MEDS ORDERED: PATIENT COMMENTS (03:58)
[2019-08-27 04:08] VITALS: BP 142/92
[2019-08-27] MEDS ORDERED: cloNIDine 0.1 MG TAB PO PRN (04:45)
[2019-08-27] MEDS ORDERED: ALBUTEROL 90 MCG/ACT 8GM HFA INHALER INH PRN (04:45)
[2019-08-27] MEDS ORDERED: OXYMETAZOLINE NASAL SPRAY (AFRIN) PRN (04:45)
[2019-08-27] MEDS ORDERED: GLUCOSE 4GM CHEW TABLET PO PRN (05:00)
[2019-08-27] MEDS ORDERED: GLUCAGON INJ 1MG VIAL SC PRN (05:00)
[2019-08-27] MEDS ORDERED: DEXTROSE 50% 50 ML SYRINGE IV PRN (05:00)
[2019-08-27] MEDS: CEPHALEXIN 250MG CAPSULE PO SCH ×3 (05:25→21:24)
--- NOTE | 2019-08-27 05:49 | IPNPDOC ---
Text Note Date of Service The patient was seen on 08/27/19. NOTE Very pleasant 73 yo W with COD, CKD3, AFib on metop and eliquis, HFpEF, IDDM, HTN, HLD, GERD, CAD s/p CABG, hypothyroidism and gout who presented from home reporting 3 weeks of LE weakness and sometimes SOB as well as feeling depressed and teary ever that she associates with recently having stopped her paxil a few weeks when she could not find her bottle. She lives alone, is and has children that live in the area but has not seen them much with the ongoing covid-19 crisis. In the ED, labs were grossly within her normal range, with Cr at 2.2 which is technically under 30% increased from her recent baseline of 1.9, trop was negative, EKG non ischemic in Afib, CBC, electrolytes, LFTS and CXR wnl. She had a UA that was positive for bacteria with negative leuk esterase and nitrites with a pending culture. While in the ED, she reported only taking her metoprolol twice daily instead of TID and about 1 hour into being in the ED, she went into RVR to the 130s. She was given metop 25 and later 5 IV with good effect and recommended for admission. I am admitting her for observation to [facility] with tele for monitoring, restarting her TID dosing of metop 25, while empirically placing her on keflex for possible UTI until culture results, and most importantly will have PT/OT evaluate her for safe discharge and restart her paxil as she endorsed symptoms of developing clinical depression to have been what precipitated her presentation. VS,Dombone, I+O VS, Fishbone, I+O Laboratory Tests 08/27/19 00:39 Vital Signs Date Time Temp Pulse Resp B/P (MAP) Pulse Ox O2 Delivery O2 Flow Rate FiO2 08/27/19 04:08 99.8 114 18 142/92 (109) 95 Room Air I&O- Last 24 Hours up to 6 AM 08/27/19 06:00 Intake Total 100 ml Output Total 0 ml Balance 100 ml KATLYN MOLINA MD August 27, 2019 05:49
--- NOTE | 2019-08-27 06:40 | HPEPDOC ---
[facility] Medical History & Physical Date of Admission August 27, 2019 Date of Service: August 27, 2019 Primary Care Physician: SANDRITA ENRIQUEZ PA-C Attending Physician: KATLYN MOLINA MD History and Physical CHIEF COMPLAINT: Lightheadedness and gait instability HISTORY OF PRESENT ILLNESS: Michelle is a 73-year-old female with PMHx CAD s/p CABG, HFpEF, Afib on eliquis, IDDM, CKD III, COPD w/o O2-dep, HTN, hypothyroidism, osteoporosis, anxiety & depression, gout, and C. diff colitis, who drove herself to the emergency department early this morning with complaints of progressively worsening lightheadedness, dizziness and gait instability over the past 6 weeks. She was lying in bed on Wednesday evening when her symptoms have got to the point at which she felt medical evaluation was needed. She experienced two mechanical falls with no loss of consciousness about a month ago, and has since arranged chairs in her home so as to offer assistance while ambulating. She lives alone and has three grown children who live nearby. She reports staying hydrated and drinking enough water on a daily basis. She denies any recent known illnesses or extensive travel. She has remained at home, leaving only to shop for essential items. She was recently told to take her Lopressor bid rather than tid, and she's been without a refill of her paxil for the last six weeks. In the ED, she was afebrile with no white count, borderline UA for UTI with subsequent culture sent, and atrial fibrillation with RVR but hadn't taken her home tid lopressor today. She was administered a one-time 5mg IV lopressor dose. She was subsequently admitted under the care of the hospitalist service for treatment of possible uncomplicated UTI and monitoring for rate control in the setting of afib. PAST MEDICAL HISTORY: CAD, s/p CABG Atrial fibrillation on Eliquis HFpEF IDDM CKD III COPD, not O2-dep Hypertension Hypothyroidism GERD Anxiety and depression Osteoporosis Gout History of C. difficile colitis Chronic back pain PAST SURGICAL HISTORY: Cholecystectomy D & C Tonsillectomy Tubal ligation Cystectomy Appendectomy Hysterectomy SOCIAL HISTORY: Lives alone. from second . from first . Has 3 grown children who all live within an hour drive from her. 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 She is a former cigarette smoker, having quit 3 years ago after smoking for 54 years, averaging 2 packs per day. Denies current or former alcohol or illicit drug use. FAMILY HISTORY: Father: , ruptured aortic aneurysm Mother: ; chronic kidney disease 3 grown daughters, middle daughter has history of both skin and thyroid cancer ALLERGIES: Please see below. REVIEW OF SYSTEMS: CONSTITUTIONAL: Denies fever, chills, night sweats, unintentional weight change HEENT: Endorses chronic sinus congestion. Denies eye pain or visual disturbances, ear pain or auditory disturbances, rhinorrhea, dysphagia, odynophagia CARDIOVASCULAR: Endorses chronic intermittent palpitations and substernal chest pressure. Denies any chest pain or lower extremity edema RESPIRATORY: Denies shortness of breath, cough, pleuritic chest pain GASTROINTESTINAL: Denies abdominal pain, nausea, vomiting, diarrhea, blood in the stool GENITOURINARY: Denies dysuria or hematuria NEUROLOGICAL: Denies syncope, difficulty focusing/concentrating, numbness or paresthesias of extremities PSYCHIATRIC: Endorses recent tearful. Mood HEMATOLOGIC/LYMPHATIC: Endorses easy bruising, is on Eliquis HOME MEDICATIONS: Please see below. PHYSICAL EXAMINATION: VITAL SIGNS: Temperature 97.5, pulse 125, respiratory rate 16, blood pressure 132/61, pulse oximetry 94% on room air. GENERAL APPEARANCE: Pleasant and interactive, elderly female lying comfortably in bed. Well-developed, well-nourished. Alert and oriented 3. No acute distress. HEENT: Normocephalic, atraumatic. Anicteric, noninjected sclera. PERRLA. Upper dentures in place. Poor dentition of lower teeth. MMM. No pharyngeal erythema or exudate. No cervical lymphadenopathy appreciated. CARDIOVASCULAR: Tachycardic, irregularly irregular rhythm. No rubs or gallops appreciated. 3-4 cm elevated jvp. 2+ radial and dorsalis pedis pulses bilaterally. Nontender chest wall. Capillary refill about 2 seconds. LUNGS: Diminished breath sounds bilaterally without significant adventitious breath sounds. Symmetric chest expansion. Speaking full sentences. Breathing room air. ABDOMEN: Soft, nondistended, with mild tenderness of right lower quadrant and associated voluntary guarding. Normoactive bowel sounds throughout. No CVA tenderness/neg Royce's sign. MUSCULOSKELETAL: Moderate thoracic kyphosis EXTREMITIES: Trace pitting edema of left lower extremity. No signs of clubbing or cyanosis. There is some scattered petechiae over the right forearm as well as bruising at site of IV and left before meals. NEUROLOGICAL: Awake, alert and oriented 3. No focal neurological deficits appreciated. Non-dysarthric speech. PSYCHIATRIC: Mood and affect appear appropriate LABORATORY DATA: Please see below. IMAGING: CT abdomen and pelvis without contrast, 08/27/19: No evidence of obstructive uropathy. No explanation for hematuria. Incidental benign left adrenal adenoma. Portable chest x-ray, 08/27/19 MICROBIOLOGY: Please see below. ASSESSMENT & PLAN: This is a 73-year-old female with multiple medical issues, principally CAD s/p CABG, afib on eliquis, HFpEF, IDDM, htn, hypothyroidism, CKD III, and COPD, who drove her self to the ED after experiencing progressive lightheadedness, dizziness and gait instability over the past 6 weeks and was admitted to med/surg w/ tele for questionable uncomplicated UTI and A. fib with RVR. #Possible uncomplicated UTI -UA: 1+ ADELA, neg nitrite and leuk est -UCx pending -WBC wnl, afebrile, no AMS -PO cephalexin ordered; recommend d/c if UCx is negative #Atrial fibrillation with RVR -rates have been running low 110s -since she had not taken her home lopressor on Sat, we resumed it and were monitoring to see if her HR responded -received one, 5mg IV lopressor dose in ED -on telemetry -home eliquis continued #IDDM -home insulin held in favor of SSI w/ hypoglycemic protocol -FSBS ac & hs -2g Na diet + consistent carb diet #Hypertension -2g Na diet + consistent carb diet #CAD, s/p CABG -home high-intensity atorvastatin continued #HFpEF -appears to be relatively well compensated -home po furosemide continued -monitoring I & O #Physical deconditioning -pt has had gait instability, lives alone, and had 2 mechanical falls last month -PT/OT evaluation ordered #GERD -home prilosec continued #Osteoporosis -home alendronate and Vit D continued #COPD, not O2-dependent -home albuterol continued -O2 titration 88-92% #Anxiety and depression -home paxil and clonidine continued -she has been off paxil for 6 weeks and endorses tearful mood of late #Gout -home febuxostat continued #DVT prophylaxis: home eliquis continued Disposition: med/surg with tele and possible d/c if UCx neg and HR becomes controlled Vital Signs Vital Signs Date Time Temp Pulse Resp B/P (MAP) Pulse Ox O2 Delivery O2 Flow Rate FiO2 08/27/19 02:15 136/63 (87) 08/27/19 02:14 122 95 08/27/19 00:15 97.5 16 Room Air Laboratory Data Labs 24H Laboratory Tests 2 08/27/19 00:33: Bedside Glucose (Misc Panel) 268H 08/27/19 00:39: Immature Granulocyte % (Auto) 0.2, Neutrophils (%) (Auto) 69.7H, Lymphocytes (%) (Auto) 13.8L, Monocytes (%) (Auto) 14.0H, Eosinophils (%) (Auto) 1.6, Basophils (%) (Auto) 0.7, Neutrophils # (Auto) 3.8, Lymphocytes # (Auto) 0.8L, Monocytes # (Auto) 0.8, Eosinophils # (Auto) 0.1, Basophils # (Auto) 0.0, Nucleated Red Blood Cells % (auto) 0.0, Anion Gap 9, Glomerular Filtration Rate 23.3L, Calcium Level 8.9, Total Bilirubin 0.9, Direct Bilirubin 0.3H, Aspartate Amino Transf (AST/SGOT) 23, Alanine Aminotransferase (ALT/SGPT) 19, Alkaline Phosphatase 170H, Total Creatine Kinase 132, Creatine Kinase MB < 1.0, Creatine Kinase MB Relative Index 0.76, Troponin I < 0.02, Total Protein 8.1, Albumin 3.1L, Album in/Globulin Ratio 0.6L, Lipase 162 08/27/19 01:07: Urine Color COOKIE, Urine Appearance CLOUDYH, Urine pH 5.0, Urine Specific [place] 1.014, Urine Protein 1+H, Urine Glucose (UA) 1+H, Urine Ketones NEGATIVE, Urine Blood 3+H, Urine Nitrite NEGATIVE, Urine Bilirubin NEGATIVE, Urine Urobilinogen 2.0H, Urine Leukocyte Esterase NEGATIVE, Urine WBC (Auto) 2, Urine RBC (Auto) TNTCH, Urine Hyaline Casts (Auto) 0, Urine Bacteria (Auto) 1+H, Urine Squamous Epithelial Cells 5, Urine Sperm (Auto) CBC/BMP Laboratory Tests 08/27/19 00:39 Home Medications Scheduled Alendronate Sodium (Alendronate Sodium) 35 Mg Tab, 35 MG PO 1XWK SEMAJ Apixaban (Eliquis) 5 Mg Tab, 5 MG PO BID Aspirin (Aspirin EC) 81 Mg Tabec, 81 MG PO DAILY Atorvastatin Calcium (Lipitor) 80 Mg Tab, 80 MG PO QHS Conjugated Estrogens (Premarin) 0.3 Mg Tab, 0.3 MG PO Q2D TAKES EVERY OTHER NIGHT Ergocalciferol (Vitamin D2) (Vitamin D2) 50,000 Units Cap, 50,000 UNITS PO 1XWK SEMAJ AROUND 1400 Febuxostat (Uloric) 40 Mg Tab, 40 MG PO DAILY Furosemide (Furosemide) 40 Mg Tab, 40 MG PO DAILY UNSURE OF DOSE, UNABLE TO CONFIRM WITH PHARMACY SHE STATES SHE GETS THEM FROM Insulin Human NPH (Novolin N) 1 Ml Susp, 30 UNITS SC BID Insulin Human Regular (Novolin R) 1 Ml Soln, 1 DOSE SC BID BEFORE BREAKFAST AND SUPPER PER SLIDING SCALE Lidocaine (Lidocaine) 30 Gm Cream..g., 1 APLCT TOP BID USE ON ARMS AND LEGS FOR ITCHING Magnesium Oxide (Magnesium Oxide) 400 Mg Tablet, 1,200 MG PO QPM TAKES AROUND 1600 Metoprolol Tartrate (Metoprolol Tartrate) 25 Mg Tab, 25 MG PO TID Multivitamins (Thera M Plus Tablet) 1 Each Tablet, 1 TAB PO DAILY TAKES AROUND 1400 Omeprazole (Omeprazole) 20 Mg Cap, 20 MG PO DAILY Paroxetine HCl (Paroxetine) 20 Mg Tab, 20 MG PO DAILY Ramipril (Ramipril) 2.5 Mg Cap, 2.5 MG PO DAILY Zolpidem Tartrate (Ambien Cr) 6.25 Mg Tab, 6.25 MG PO QHS Scheduled PRN Albuterol Sulfate (Proair Hfa) 108 Mcg/Act Aer, 2 PUFF INH Q4H PRN for SOB/WHE EZING Clonidine HCl (Clonidine HCl) 0.1 Mg Tab, 0.1 MG PO DAILY PRN for ANXIETY TAKES PRN Diazepam (Diazepam) 5 Mg Tab, 5 MG PO BID PRN for ANXIETY Ondansetron HCl (Ondansetron HCl) 4 Mg Tab, 4 MG PO TID PRN for NAUSEA OR VOMITING Oxymetazoline HCl (Oxymetazoline HCl) 30 Ml [place], 2 SPRAYS NA QHS PRN for NASAL CONGESTION Miscellaneous Medications [Patient Comments] PATIENT STATES SHE WAS RECENTLY PRESCRIBED A POTASSIIUM MEDICATION, HAS NOT STARTED. DOSAGE UNKNOWN Allergies Coded Allergies: [place] (Verified Allergy, Mild, ITCH/RASH, 04/18/19) midazolam (Verified Allergy, Unknown, 04/18/19) pentazocine (Verified Allergy, Unknown, 04/18/19) codeine (Verified Adverse Reaction, Intermediate, PALPITATIONS, 04/18/19) fentanyl (Verified Adverse Reaction, Intermediate, VOMITING, 04/19/19) hydrocodone (Verified Adverse Reaction, Intermediate, TACHYCARDIA, 04/18/19) oxycodone (Verified Adverse Reaction, Intermediate, TACHTCARDIA, 04/18/19) Sulfa (Sulfonamide Antibiotics) (Verified Adverse Reaction, Mild, GI UPSET, 04/18/19) A-FIB/CHADSVASC A-FIB History Current/History of A-Fib/PAF?: Yes Current PO Anticoag Therapy: Yes (eliquis) GME ATTESTATION GME ATTESTATION My faculty preceptor for this patient encounter was physically present during the encounter and was fully available. All aspects of the patient interview, examination, medical decision making process, and medical care plan development were reviewed and approved by the faculty preceptor. The faculty preceptor is aware and concurs with the plan as stated in the body of this note and will attest to such by his/her cosignature. ATTENDING NOTE I examined and discussed Ms. Cordova's course and management with the resident physician and I agree with the plan above. ROBERT HAILE D.O. August 27, 2019 06:39 KATLYN MOLINA MD August 27, 2019 20:53
[2019-08-27] MEDS: ASPIRIN 81 MG ENTERIC TAB PO SCH (09:25)
[2019-08-27] MEDS: APIXABAN 5 MG TAB (ELIQUIS) PO SCH ×2 (09:25→21:24)
[2019-08-27] MEDS: MULTIVITAMINS/MINERALS THERAP 1 TAB PO SCH (09:25)
[2019-08-27] MEDS: FUROSEMIDE 40 MG TAB PO SCH (09:25)
[2019-08-27] MEDS: OMEPRAZOLE 20 MG CAP PO SCH (09:25)
[2019-08-27] MEDS: FEBUXOSTAT 40 MG TABLET (ULORIC) PO SCH (09:25)
[2019-08-27] MEDS: PARoxetine 20 MG TAB PO SCH (09:25)
[2019-08-27] MEDS: HumaLOG INSULIN (NovoLOG) PER UNIT SC SCH ×3 (09:26→16:45)
[2019-08-27] MEDS: METOPROLOL TART 25 MG TABLET PO SCH ×3 (09:26→21:27)
[2019-08-27 14:00] VITALS: BP 130/59
[2019-08-27] MEDS: diphenhydrAMINE CREAM 30GM TOP PRN ×2 (16:46→23:22)
[2019-08-27] MEDS ORDERED: MAGNESIUM OXIDE 400 MG TAB (MAG-OX) PO SCH (21:00)
[2019-08-27] MEDS ORDERED: HumaLOG INSULIN (NovoLOG) PER UNIT SC SCH (21:00)
[2019-08-27] MEDS ORDERED: ATORVASTATIN 20 MG TAB PO SCH (21:00)
--- NOTE | 2019-08-27 21:05 | ECGEPIP ---
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
[2019-08-27 22:00] VITALS: BP 114/73
[2019-08-28] MEDS: CEPHALEXIN 250MG CAPSULE PO SCH (05:08)
[2019-08-28 05:17] LABS: HEMATOCRIT 30.9 % (36.0-47.0); MEAN CORPUSCULAR HEMOGLOBIN 32.3 pg (27.0-33.0); MEAN CORPUSCULAR HGB CONC 33.7 g/dl (32.0-36.5); PLATELET COUNT, AUTOMATED 312 10^3/uL (150-450); RED BLOOD COUNT 3.22 10^6/uL (4.00-5.40); WHITE BLOOD COUNT 4.9 10^3/uL (4.0-10.0)
[2019-08-28 05:19] LABS: HEMOGLOBIN 10.4 g/dl (12.0-15.5)
[2019-08-28 05:28] LABS: CALCIUM LEVEL 8.5 MG/DL (8.8-10.2); CREATININE FOR GFR 1.6 MG/DL (0.55-1.30); GLOMERULAR FILTRATION RATE 33.8 (>39); POTASSIUM SERUM 4.4 MEQ/L (3.5-5.1)
[2019-08-28 06:00] VITALS: BP 1/67
[2019-08-28] MEDS ORDERED: KEFL250C11 PO (07:39)
[2019-08-28] MEDS: APIXABAN 5 MG TAB (ELIQUIS) PO SCH (08:09)
[2019-08-28] MEDS: MULTIVITAMINS/MINERALS THERAP 1 TAB PO SCH (08:09)
[2019-08-28] MEDS: FUROSEMIDE 40 MG TAB PO SCH (08:10)
[2019-08-28] MEDS: ASPIRIN 81 MG ENTERIC TAB PO SCH (08:10)
[2019-08-28] MEDS: HumaLOG INSULIN (NovoLOG) PER UNIT SC SCH (08:11)
[2019-08-28] MEDS: PARoxetine 20 MG TAB PO SCH (08:11)
[2019-08-28] MEDS: OMEPRAZOLE 20 MG CAP PO SCH (08:11)
[2019-08-28 08:12] VITALS: BP 137/76
[2019-08-28] MEDS: METOPROLOL TART 25 MG TABLET PO SCH (08:12)
[2019-08-28] MEDS: FEBUXOSTAT 40 MG TABLET (ULORIC) PO SCH (08:13)
[2019-08-28] MEDS ORDERED: PAXI20TA29 PO (08:23)
--- NOTE | 2019-08-28 09:25 | REP ---
Portable chest x-ray: Single view. Repeat dictation. History: Shortness of breath. Preliminary report is provided at the time of the exam by Dr. Livingston. Comparison chest x-ray: April 24, 2019. Findings: There is linear plate-like atelectasis in the left mid and lower lung zone. There is minimal linear plate-like atelectasis in the right base as well. No infiltrate is seen. No pleural effusion is noted. Heart size is unchanged. Pulmonary vascular markings are improved from the April 24, 2019 study. Impression: Bibasilar linear plate-like atelectasis. No acute infiltrate. No evidence of pulmonary edema or pleural effusion. Electronically Signed by Alex Street MD 08/28/2019 09:17 A
--- NOTE | 2019-08-29 22:51 | DSES ---
DATE OF ADMISSION: 08/27/2019 DATE OF DISCHARGE: 08/28/2019 DISCHARGE DIAGNOSES: Atrial fibrillation with rapid ventricular rate. Depression. Chronic atrial fibrillation with rapid ventricular rate. History of coronary artery disease, coronary artery bypass graft (CABG). Heart failure with preserved ejection fraction, compensated. Chronic kidney disease, stage III. Hypothyroidism. Hypertension. Chronic obstructive pulmonary disease (COPD), not on oxygen. Type 2 diabetes. Reflux. Anxiety. Depression. Osteoporosis. Gout. History of Clostridium difficile (C diff). Chronic back pain. DISCHARGE MEDICATIONS: - metoprolol 25 mg three times a day - Paxil 20 mg daily - albuterol every 4 hours - alendronate 35 mg weekly - Eliquis 5 mg twice a day - aspirin 81 mg daily - Lipitor 80 mg nightly - clonidine 0.1 mg as needed - Premarin 0.3 mg every 2 days - Valium 5 mg twice a day as needed - vitamin D 50,000 units weekly - Uloric 40 mg daily - Lasix 40 mg daily - NPH 30 units subcu twice a day - insulin sliding scale - Lidocaine topically twice a day - Mag-Ox 1200 mg every evening - multivitamin one tablet daily - Prilosec 20 mg daily - Zofran 4 mg three times a day - oxymetazoline spray - ramipril 2.5 mg daily - Zolpidem 6.25 mg nightly HOSPITAL COURSE: A 73-year-old female who presented to the emergency room with complaints of lower extremity weakness for the past 3 weeks and shortness of breath, feeling depressed and teary-eyed. Stopped her Paxil a few weeks ago. Could not find her bottle. Lives alone and . In the emergency room (ER), patient was found to be in atrial fibrillation with RVR in 130s. She was given metoprolol 25 mg by mouth and later 5 mg IV with good response and rate control. The patient was admitted for further evaluation. Urinalysis was concerning for bacteria with negative leukocyte esterase and nitrites. She was given oral cephalexin, which was subsequently discontinued since the urine culture was negative. The patient remained rate controlled, passed a home safely evaluation and subsequently discharged home. She requested a new prescription for Paxil and to followup with her primary care physician within 5 days of hospital discharge. PHYSICAL EXAM ON DISCHARGE: Temperature 98.4, pulse 95, respiratory rate 20, blood pressure 137/76, 97% on room air. Generally normal affect. No jugular venous distention (JVD), thyromegaly. Lungs: Clear to auscultation. No wheezing/rales. Heart: S1, S2, irregularly irregular. Abdomen is soft, nontender, nondistended. Positive bowel sounds. Extremities: Trace edema bilateral lower extremities, petechiae and bruising in the upper extremities. LABORATORY DATA: CT abdomen and pelvis 08/27/2019: No obstructive uropathy, incidental benign left adrenal adenoma. Chest x-ray 08/27/2019: Atelectasis. No acute infiltrate. No pulmonary edema. TIME SPENT ON DISCHARGE: 30 minutes.
[2019-09-01] MEDS ORDERED: ALENDRONATE 35MG TABLET PO SCH (06:00)
[2019-09-01] MEDS ORDERED: VITAMIN D 50,000 UNITS CAPSULE (ERGOCALCIFEROL 1.25MG) PO SCH (13:00)
== END 2019-08-28 12:05 | disposition home or self-care (01) ==
LOC: M ED 00:14 → M ED INP 02:05 → ENRESERV 03:38 → M MSPAV 04:07
PROVIDERS: ADMIT Internal Medicine; ATTEND General Practice
DX: I48.20 Chronic atrial fibrillation, unspecified (principal); F32.9 Major depressive disorder, single episode, unspecified; I13.0 Hypertensive heart and chronic kidney disease with heart failure and stage 1 through stage 4 chronic kidney disease, or unspecified chronic kidney disease; N18.3 Chronic kidney disease, stage 3 (moderate); I50.30 Unspecified diastolic (congestive) heart failure; I25.10 Atherosclerotic heart disease of native coronary artery without angina pectoris; E03.9 Hypothyroidism, unspecified; J44.9 Chronic obstructive pulmonary disease, unspecified; E11.22 Type 2 diabetes mellitus with diabetic chronic kidney disease; K21.9 Gastro-esophageal reflux disease without esophagitis; F41.9 Anxiety disorder, unspecified; M81.0 Age-related osteoporosis without current pathological fracture; M10.9 Gout, unspecified; M54.9 Dorsalgia, unspecified; G89.29 Other chronic pain; R53.1 Weakness; R06.02 Shortness of breath; Z79.899 Other long term (current) drug therapy; Z79.01 Long term (current) use of anticoagulants; Z79.82 Long term (current) use of aspirin; Z79.890 Hormone replacement therapy; Z79.4 Long term (current) use of insulin; Z95.1 Presence of aortocoronary bypass graft; Z87.19 Personal history of other diseases of the digestive system; Z87.891 Personal history of nicotine dependence; Z91.81 History of falling; Z88.8 Allergy status to other drugs, medicaments and biological substances; Z88.5 Allergy status to narcotic agent; Z88.2 Allergy status to sulfonamides
CPT/HCPCS: 36415; 71045; 74176; 80048; 80076; 81001; 82550; 82553; 83690; 83735; 84484; 85025; 85027; 93005; 93041; 94760; 96374; 97161; 97165; 99285; G0378

== ENCOUNTER → 2019-09-12 | Outpatient (REF) | payer MEDICARE, OTHER ==
[~2019-09-12] MED LIST changes: +KEFL250C11 PO; +LIDO5CRE6 TOP; +PATIENT COMMENTS; +PAXI20TA29 PO
[2019-09-12 17:03] LABS: BASO % 0.6 % (0.0-1.0); EOS # 0.2 10^3/uL (0.0-0.5); EOS % 2.5 % (0.0-3.0); HEMATOCRIT 34.1 % (36.0-47.0); HEMOGLOBIN 10.8 g/dl (12.0-15.5); LYMPH % 15.1 % (24.0-44.0); MEAN CORPUSCULAR HEMOGLOBIN 31.6 pg (27.0-33.0); MEAN CORPUSCULAR HGB CONC 31.7 g/dl (32.0-36.5); MEAN CORPUSCULAR VOLUME 99.7 fl (80.0-96.0); MONO # 0.7 10^3/uL (0.0-0.8); MONO % 10.8 % (0.0-5.0); NEUTROPHILS # 4.5 10^3/uL (1.5-8.5); NEUTROPHILS % 70.7 % (36.0-66.0); PLATELET COUNT, AUTOMATED 335 10^3/uL (150-450); RED BLOOD COUNT 3.42 10^6/uL (4.00-5.40); WHITE BLOOD COUNT 6.4 10^3/uL (4.0-10.0)
[2019-09-12 17:17] LABS: ALBUMIN 2.8 GM/DL (3.2-5.2); BILIRUBIN,TOTAL 0.6 MG/DL (0.2-1.0); CALCIUM LEVEL 9.4 MG/DL (8.8-10.2); CREATININE FOR GFR 1.63 MG/DL (0.55-1.30); FREE T4 1.6 NG/DL (0.76-1.46); POTASSIUM SERUM 3.6 MEQ/L (3.5-5.1); THYROID STIMULATING HORMONE 0.01 uIU/ML (0.358-3.740); TOTAL PROTEIN 7.4 GM/DL (6.4-8.2)
[2019-09-12 17:21] LABS: HEMOGLOBIN A1c 10.4 %
== END ==
LOC: M SFHCADAM 11:43
PROVIDERS: ATTEND Physician Assistant Medical
DX: E03.9 Hypothyroidism, unspecified (principal); E83.42 Hypomagnesemia; E11.22 Type 2 diabetes mellitus with diabetic chronic kidney disease; I48.0 Paroxysmal atrial fibrillation

== ENCOUNTER → 2019-10-02 | Outpatient (CLI) | payer MEDICARE, OTHER ==
--- NOTE | 2019-10-03 23:13 | REP ---
REASON: Thyrotoxicosis and goiter. There are no priors for comparison. After the oral administration of 358 mCi of iodine-123, a thyroid scan and uptake was performed. The thyroid scan shows little uptake of the radioiodide within the thyroid gland with activity in the thyroid bed slightly higher than background activity. The 24-hour uptake value is 1.35%. IMPRESSION: Markedly abnormal thyroid scan and uptake, which can indicate either severe hyperthyroidism with thyroiditis or hypothyroidism. This distinction needs to be made on a clinical basis. Electronically Signed by Emigdio Gilliland DO 10/04/2019 08:38 A
== END ==
LOC: M RAD 13:38
PROVIDERS: ATTEND Internal Medicine Endocrinology, Diabetes & Metabolism
DX: E05.00 Thyrotoxicosis with diffuse goiter without thyrotoxic crisis or storm (principal)
CPT/HCPCS: 78012; A9516

== ENCOUNTER → 2019-12-05 | Outpatient (CLI) | payer MEDICARE, OTHER ==
[~2019-12-05] MED LIST changes: +ALEN35TA54 PO; -ALEN35TA6 PO; -AMLO10TA5 PO; +AMLO1TAB24 PO; +AMLO1TAB25 PO; -AMLO5TAB6 PO
[2019-12-05 18:31] LABS: FREE T4 0.77 NG/DL (0.76-1.46); THYROID STIMULATING HORMONE 9.46 uIU/ML (0.358-3.740)
== END ==
LOC: M PLALAB 14:09
PROVIDERS: ATTEND Internal Medicine Endocrinology, Diabetes & Metabolism
DX: E05.00 Thyrotoxicosis with diffuse goiter without thyrotoxic crisis or storm (principal)

== ENCOUNTER → 2019-12-19 | Outpatient (REF) | payer MEDICARE, OTHER ==
[2019-12-19 15:43] LABS: BASO # 0.1 10^3/uL (0.0-0.2); BASO % 0.8 % (0.0-1.0); EOS # 0.2 10^3/uL (0.0-0.5); EOS % 1.9 % (0.0-3.0); HEMATOCRIT 37.6 % (36.0-47.0); HEMOGLOBIN 11.7 g/dl (12.0-15.5); LYMPH # 1.1 10^3/uL (1.5-5.0); LYMPH % 13.2 % (24.0-44.0); MEAN CORPUSCULAR HEMOGLOBIN 32.4 pg (27.0-33.0); MEAN CORPUSCULAR HGB CONC 31.1 g/dl (32.0-36.5); MEAN CORPUSCULAR VOLUME 104.2 fl (80.0-96.0); MONO # 0.8 10^3/uL (0.0-0.8); NEUTROPHILS # 6.2 10^3/uL (1.5-8.5); NEUTROPHILS % 73.7 % (36.0-66.0); PLATELET COUNT, AUTOMATED 285 10^3/uL (150-450); RED BLOOD COUNT 3.61 10^6/uL (4.00-5.40); WHITE BLOOD COUNT 8.4 10^3/uL (4.0-10.0)
[2019-12-19 15:54] LABS: HEMOGLOBIN A1c 6.7 %
[2019-12-19 16:13] LABS: ALBUMIN 3.9 GM/DL (3.2-5.2); BILIRUBIN,TOTAL 0.5 MG/DL (0.2-1.0); CALCIUM LEVEL 9.7 MG/DL (8.8-10.2); CHOLESTEROL RISK RATIO 5.306 (<5); CREATININE FOR GFR 1.48 MG/DL (0.55-1.30); GLOMERULAR FILTRATION RATE 36.9 (>39); MAGNESIUM LEVEL 2.1 MG/DL (1.8-2.4); POTASSIUM SERUM 3.8 MEQ/L (3.5-5.1); TOTAL 25(OH) VITAMIN D 31.5 NG/ML (30.0-100.0)
[2019-12-19 16:16] LABS: CREATININE, URINE < 13.0 MG/DL; MALB URINE SIEMENS 32.1 MG/L
== END ==
LOC: M LABDRWAD 12:35
PROVIDERS: ATTEND Physician Assistant Medical
DX: E11.22 Type 2 diabetes mellitus with diabetic chronic kidney disease (principal); I12.9 Hypertensive chronic kidney disease with stage 1 through stage 4 chronic kidney disease, or unspecified chronic kidney disease; N18.3 Chronic kidney disease, stage 3 (moderate)

== ENCOUNTER → 2020-01-10 | Outpatient (CLI) | payer MEDICARE, OTHER ==
[2020-01-10 15:58] LABS: FREE T4 0.84 NG/DL (0.76-1.46); THYROID STIMULATING HORMONE 9.61 uIU/ML (0.358-3.740)
== END ==
LOC: M PLALAB 13:07
PROVIDERS: ATTEND Internal Medicine Endocrinology, Diabetes & Metabolism
DX: E05.00 Thyrotoxicosis with diffuse goiter without thyrotoxic crisis or storm (principal)

== ENCOUNTER → 2020-03-21 | Outpatient (CLI) | payer MEDICARE, OTHER ==
[2020-03-21 18:29] LABS: FREE T4 1.13 NG/DL (0.76-1.46); THYROID STIMULATING HORMONE 0.794 uIU/ML (0.358-3.740)
== END ==
LOC: M PLALAB 14:39
PROVIDERS: ATTEND Internal Medicine Endocrinology, Diabetes & Metabolism
DX: E05.00 Thyrotoxicosis with diffuse goiter without thyrotoxic crisis or storm (principal)

== ENCOUNTER → 2020-04-25 | Outpatient (CLI) | payer MEDICARE, OTHER ==
[2020-04-25 16:15] LABS: INR 1.26
[2020-04-25 16:16] LABS: PARTIAL THROMBOPLASTIN TIME 29.3 SECONDS (24.2-38.5)
== END ==
LOC: M PLALAB 14:00
PROVIDERS: ATTEND Physical Medicine & Rehabilitation
DX: Z01.812 Encounter for preprocedural laboratory examination (principal)

== ENCOUNTER → 2020-04-26 | Outpatient (CLI) | payer MEDICARE, OTHER ==
[~2020-04-26] MED LIST changes: +CIPR7.5D5 AS; -CIPRODEX AS; -LISI-538 PO; +LISI20TA33 PO; -MAG400TA PO; +MAGN400T35 PO
[2020-04-26 13:43] LABS: PLATELET COUNT, AUTOMATED 299 10^3/uL (150-450)
== END ==
LOC: M PLALAB 10:09
PROVIDERS: ATTEND Physical Medicine & Rehabilitation
DX: Z01.812 Encounter for preprocedural laboratory examination (principal); Z79.01 Long term (current) use of anticoagulants

== ENCOUNTER → 2020-10-18 | Outpatient (CLI) | payer MEDICARE, OTHER ==
[~2020-10-18] MED LIST changes: -ALEN35TA54 PO; +ALEN35TA56 PO; -ALEN70SO PO; +ALEN70SO2 PO; +ASPI-569 PO; -ASPI81TAEC PO; -DOXY100C PO; +DOXY100C3 PO; +ERGO500029 PO; -HYDR1CRE93 TOP; +HYDR28CR33 TOP; -MAGN400T3 PO; +MAGN400T33 PO; +TIZA10TA PO; -TIZA4TAB4 PO
[2020-10-18 13:13] LABS: BASO % 0.7 % (0.0-1.0); EOS # 0.2 10^3/uL (0.0-0.5); EOS % 2.7 % (0.0-3.0); HEMATOCRIT 41.9 % (36.0-47.0); HEMOGLOBIN 13.6 g/dl (12.0-15.5); LYMPH # 1.1 10^3/uL (1.5-5.0); LYMPH % 18.2 % (24.0-44.0); MEAN CORPUSCULAR HEMOGLOBIN 32.6 pg (27.0-33.0); MEAN CORPUSCULAR HGB CONC 32.5 g/dl (32.0-36.5); MEAN CORPUSCULAR VOLUME 100.5 fl (80.0-96.0); MONO # 0.6 10^3/uL (0.0-0.8); MONO % 9.5 % (2.0-8.0); NEUTROPHILS % 68.4 % (36.0-66.0); PLATELET COUNT, AUTOMATED 319 10^3/uL (150-450); RED BLOOD COUNT 4.17 10^6/uL (4.00-5.40); WHITE BLOOD COUNT 5.9 10^3/uL (4.0-10.0)
[2020-10-18 13:52] LABS: ALBUMIN 3.9 GM/DL (3.2-5.2); BILIRUBIN,TOTAL 0.5 MG/DL (0.2-1.0); CHOLESTEROL RISK RATIO 3.89 (<5); CREATININE FOR GFR 1.52 MG/DL (0.55-1.30); GLOMERULAR FILTRATION RATE 35.7 (>39); POTASSIUM SERUM 5.5 MEQ/L (3.5-5.1); THYROID STIMULATING HORMONE 0.836 uIU/ML (0.358-3.740); TOTAL 25(OH) VITAMIN D 42.8 NG/ML (30.0-100.0); TOTAL PROTEIN 8.1 GM/DL (6.4-8.2)
== END ==
LOC: M PLALAB 11:23
PROVIDERS: ATTEND Physician Assistant Medical
DX: K21.9 Gastro-esophageal reflux disease without esophagitis (principal); I12.9 Hypertensive chronic kidney disease with stage 1 through stage 4 chronic kidney disease, or unspecified chronic kidney disease; F34.1 Dysthymic disorder; E55.9 Vitamin D deficiency, unspecified; N18.32 Chronic kidney disease, stage 3b; E11.22 Type 2 diabetes mellitus with diabetic chronic kidney disease; I25.10 Atherosclerotic heart disease of native coronary artery without angina pectoris

== ENCOUNTER → 2020-11-20 | Outpatient (CLI) | payer MEDICARE, OTHER ==
[~2020-11-20] MED LIST changes: +ALEN70SO PO; -ALEN70SO2 PO; +MAGN400T3 PO; -MAGN400T33 PO; -TIZA10TA PO; +TIZA4TAB4 PO
== END ==
LOC: M LABSMTC 13:32
PROVIDERS: ATTEND Pediatrics
DX: Z20.822 Contact with and (suspected) exposure to COVID-19 (principal)
CPT/HCPCS: C9803; U0003

== ENCOUNTER → 2021-09-12 | Outpatient (REF) | payer MEDICARE, OTHER ==
[~2021-09-12] MED LIST changes: +ALBU2.5V10 INH; -ALBU83IN INH; -ALEN70SO PO; +ALEN70SO2 PO; -MAGN400T3 PO; +MAGN400T33 PO; +TIZA10TA PO; -TIZA4TAB4 PO
[2021-09-12 18:13] LABS: CHOLESTEROL RISK RATIO 2.426 (<5)
[2021-09-12 18:14] LABS: PERCENT SATURATION 25.5 % (13.2-45.0); THYROID STIMULATING HORMONE 0.772 uIU/ML (0.358-3.740)
== END ==
LOC: M SFHCADAM 13:58
PROVIDERS: ATTEND Physician Assistant Medical
DX: E11.65 Type 2 diabetes mellitus with hyperglycemia (principal); I25.10 Atherosclerotic heart disease of native coronary artery without angina pectoris; I50.32 Chronic diastolic (congestive) heart failure; E03.9 Hypothyroidism, unspecified

== ENCOUNTER 2021-11-18 10:49 | Emergency (ER) | payer MEDICARE, OTHER ==
[~2021-11-18] VITALS: Ht 157.5 cm; Wt 88.6 kg
[2021-11-18] MEDS ORDERED: LEVAINH INH (11:06)
[2021-11-18] MEDS ORDERED: GABA-1171 PO (11:06)
[2021-11-18] MEDS ORDERED: METOPROLOL TART 25 MG TABLET PO ONE (15:45)
[2021-11-18 16:24] LABS: BASO # 0.1 10^3/uL (0.0-0.2); BASO % 0.7 % (0.0-1.0); EOS # 0.2 10^3/uL (0.0-0.5); EOS % 2.7 % (0.0-3.0); HEMATOCRIT 38.3 % (36.0-47.0); HEMOGLOBIN 12.5 g/dl (12.0-15.5); LYMPH # 0.9 10^3/uL (1.5-5.0); LYMPH % 13.8 % (24.0-44.0); MEAN CORPUSCULAR HEMOGLOBIN 32.5 pg (27.0-33.0); MEAN CORPUSCULAR HGB CONC 32.6 g/dl (32.0-36.5); MEAN CORPUSCULAR VOLUME 99.5 fl (80.0-96.0); MONO # 0.5 10^3/uL (0.0-0.8); MONO % 8.1 % (2.0-8.0); NEUTROPHILS % 74.3 % (36.0-66.0); PLATELET COUNT, AUTOMATED 281 10^3/uL (150-450); RED BLOOD COUNT 3.85 10^6/uL (4.00-5.40); WHITE BLOOD COUNT 6.7 10^3/uL (4.0-10.0)
[2021-11-18] MEDS ORDERED: LIDOCAINE 5% (LIDODERM) PATCH TD ONE (17:45)
[2021-11-18] MEDS ORDERED: methocarbamoL 750 MG TAB PO ONE (17:45)
[2021-11-18] MEDS ORDERED: hydrALAZINE 20MG/ML 1ML VIAL (J0360 PER 20MG) IV STA (17:45)
[2021-11-18] MEDS ORDERED: GABAPENTIN 300 MG CAP PO ONE (19:15)
[2021-11-18 19:24] LABS: APPEARANCE, URINE CLEAR (CLEAR); BACTERIA, URINE AUTO NEGATIVE (NEGATIVE); BILIRUBIN, URINE AUTO NEGATIVE (NEGATIVE); BLOOD, URINE BLOOD NEGATIVE (NEGATIVE); COLOR, URINE YELLOW (YELLOW); GLUCOSE, URINE (UA) AUTO NEGATIVE (NEGATIVE); KETONE, URINE AUTO NEGATIVE (NEGATIVE); LEUKOCYTE ESTERASE, URINE AUTO NEGATIVE (NEGATIVE); NITRITE, URINE AUTO NEGATIVE (NEGATIVE); PROTEIN, URINE AUTO 2+ mg/dL (NEGATIVE); RBC, URINE AUTO 2 /HPF (0-3); SPECIFIC GRAVITY URINE AUTO 1.008 (1.002-1.035); SQUAMOUS EPITHELIAL CELL UR AU 3 /HPF (0-6); UROBILINOGEN, URINE AUTO 0.2 mg/dL (0.0-2.0); WBC, URINE AUTO 2 /HPF (0-3)
[2021-11-18 19:44] VITALS: BP 147/80
[2021-11-18] MEDS ORDERED: amLODIPine 5 MG TAB PO ONE (20:10)
[2021-11-18] MEDS ORDERED: NORV5TAB PO (20:11)
[2021-11-18 20:25] VITALS: BP 148/70
[2021-11-18] MEDS ORDERED: **NOTE PATIENT COMMENT** MISC XX SCH (21:00)
== END 2021-11-18 20:32 | disposition home or self-care (01) ==
LOC: M ED 10:49
DX: I10 Essential (primary) hypertension (principal); R80.9 Proteinuria, unspecified; I48.0 Paroxysmal atrial fibrillation; J44.9 Chronic obstructive pulmonary disease, unspecified; N18.9 Chronic kidney disease, unspecified; E11.9 Type 2 diabetes mellitus without complications; I25.2 Old myocardial infarction; E78.5 Hyperlipidemia, unspecified; F17.200 Nicotine dependence, unspecified, uncomplicated; Z86.79 Personal history of other diseases of the circulatory system; Z88.2 Allergy status to sulfonamides; Z88.5 Allergy status to narcotic agent; Z88.6 Allergy status to analgesic agent; Z79.51 Long term (current) use of inhaled steroids; Z79.4 Long term (current) use of insulin; Z79.899 Other long term (current) drug therapy
CPT/HCPCS: 36415; 71046; 80047; 81001; 82550; 82948; 85025; 93005; 96374; 99284; G0463; J0360

== ENCOUNTER → 2021-12-05 | Outpatient (CLI) | payer MEDICARE, OTHER ==
[~2021-12-05] MED LIST changes: +GABA-1171 PO; +LEVAINH INH; +NORV5TAB PO
== END ==
LOC: M SOG 08:09
PROVIDERS: ATTEND Orthopaedic Surgery
DX: M47.896 Other spondylosis, lumbar region (principal); M43.16 Spondylolisthesis, lumbar region

== ENCOUNTER 2022-07-09 16:21 | Inpatient (IN) | payer OTHER ==
[~2022-07-09] VITALS: Ht 157.5 cm; Wt 81.5 kg
[~2022-07-09 16:21] MED LIST changes: -CLIN1SOL TOP; -LEVO88TA3 PO; -METO50TA7 PO; -OMEG10002 PO; -PARO20TA3 PO; -PROBCAP14 PO; -VENTAER INH
[2022-07-09] MEDS ORDERED: FUROSEMIDE 40MG/4ML VIAL IV ONE (16:50)
[2022-07-09] MEDS ORDERED: ALBUTEROL SULFATE 2.5MG/0.5ML INH NEB SOLN INH ONE (16:50)
[2022-07-09] MEDS ORDERED: methylPREDNISolone 125MG 2ML VIAL IV ONE (16:50)
[2022-07-09] MEDS ORDERED: IPRATROPIUM 0.5MG/ALBUTEROL 2.5MG INH SOL UD 3ML (DUONEB) NEB ONE (16:50)
[2022-07-09 16:59] LABS: BASO # 0.1 10^3/uL (0.0-0.2); BASO % 0.6 % (0.0-1.0); EOS # 0.1 10^3/uL (0.0-0.5); EOS % 0.6 % (0.0-3.0); HEMATOCRIT 36.2 % (36.0-47.0); HEMOGLOBIN 11.5 g/dl (12.0-15.5); LYMPH # 0.6 10^3/uL (1.5-5.0); LYMPH % 7.2 % (24.0-44.0); MEAN CORPUSCULAR HEMOGLOBIN 31.9 pg (27.0-33.0); MEAN CORPUSCULAR HGB CONC 31.8 g/dl (32.0-36.5); MEAN CORPUSCULAR VOLUME 100.6 fl (80.0-96.0); MONO # 0.4 10^3/uL (0.0-0.8); MONO % 5.3 % (2.0-8.0); NEUTROPHILS # 7.1 10^3/uL (1.5-8.5); NEUTROPHILS % 85.7 % (36.0-66.0); PLATELET COUNT, AUTOMATED 279 10^3/uL (150-450); WHITE BLOOD COUNT 8.3 10^3/uL (4.0-10.0)
[2022-07-09 17:29] LABS: CK-MB VALUE MASS < 1.0 NG/ML (<3.6)
[2022-07-09 17:30] LABS: LIPASE 28 U/L (12-53)
[2022-07-09 17:31] LABS: CPK CREATINE PHOSPHOKINASE 63 U/L (34-145); MB/CK RELATIVE INDEX 1.58 (< OR =4)
[2022-07-09 17:32] LABS: ALBUMIN 3.6 G/DL (3.2-5.2); ALKALINE PHOSPHATASE 167 U/L (46-116); ALT/SGPT 30 U/L (7.0-40); AST/SGOT 22 U/L (<34); BILIRUBIN,DIRECT 0.4 MG/DL (<0.4); BILIRUBIN,TOTAL 1.2 MG/DL (0.3-1.2); BLOOD UREA NITROGEN 16 MG/DL (9-23); CALCIUM LEVEL 9.4 MG/DL (8.3-10.6); CARBON DIOXIDE LEVEL 29 MMOL/L (20-31); CHLORIDE LEVEL 103 MMOL/L (98-107); CREATININE FOR GFR 1.23 MG/DL (0.55-1.30); GLOMERULAR FILTRATION RATE 45.4 (>39); GLUCOSE, FASTING 245 MG/DL (74-106); SODIUM LEVEL 138 MMOL/L (136-145); TOTAL PROTEIN 7.6 G/DL (5.7-8.2)
[2022-07-09 17:34] LABS: THYROID STIMULATING HORMONE 1.526 uIU/ML (0.55-4.78)
[2022-07-09] MEDS ORDERED: ISOVUE-370 76% 100ML VIAL As Ordered ONE (17:47)
[2022-07-09 18:14] LABS: INR 1.23; PARTIAL THROMBOPLASTIN TIME 31.6 SECONDS (24.8-34.2); PROTHROMBIN TIME 15.8 SECONDS (12.5-14.5)
[2022-07-09 18:32] LABS: CK-MB VALUE MASS < 1.0 NG/ML (<3.6)
[2022-07-09 18:34] LABS: RSV AMPLIFICATION NEGATIVE (NEGATIVE)
[2022-07-09 18:35] LABS: CPK CREATINE PHOSPHOKINASE 62 U/L (34-145); MB/CK RELATIVE INDEX 1.61 (< OR =4)
[2022-07-09] MEDS ORDERED: PIPERACILLIN/TAZOBACTAM SOD 4.5 GM in D5W MINI-BAG PLUS 50 ML IV ONE (19:00)
[2022-07-09] MEDS ORDERED: SODIUM CHLORIDE NASAL 0.65% SPRAY BTL (OCEAN) PRN (19:30)
[2022-07-09] MEDS ORDERED: PARO20TA3 PO (20:34)
[2022-07-09] MEDS ORDERED: METO50TA7 PO (20:34)
[2022-07-09] MEDS ORDERED: CLIN1SOL TOP (20:34)
[2022-07-09] MEDS ORDERED: OMEG10002 PO (20:34)
[2022-07-09] MEDS ORDERED: PROBCAP14 PO (20:34)
[2022-07-09] MEDS ORDERED: AMLO1TAB25 PO (20:34)
[2022-07-09] MEDS ORDERED: LEVO88TA3 PO (20:34)
[2022-07-09] MEDS ORDERED: VENTAER INH (20:34)
[2022-07-09] MEDS ORDERED: HOME MED LIST COMPLETE! XX SCH (20:35)
[2022-07-09] MEDS ORDERED: AZITHROMYCIN 250MG TABLET PO SCH (21:00)
[2022-07-09] MEDS ORDERED: DEXTROSE 50% 50ML SYRINGE IV PRN (21:00)
[2022-07-09] MEDS ORDERED: GLUCAGON INJ 1MG VIAL SC PRN (21:00)
[2022-07-09] MEDS ORDERED: GLUCOSE 4GM CHEW TABLET PO PRN (21:00)
[2022-07-09 21:30] VITALS: BP 148/66
[2022-07-09] MEDS ORDERED: cefTRIAXone SOD 1 GM in D5W MINI-BAG PLUS 50 ML IV SCH (22:00)
[2022-07-09] MEDS ORDERED: ALBUTEROL 90 MCG/ACT 8GM HFA INHALER INH PRN (22:00)
[2022-07-09] MEDS: INSULIN LISPRO (NovoLOG) PER UNIT SC SCH (22:10)
[2022-07-09] MEDS: APIXABAN 5 MG TAB (ELIQUIS) PO SCH (22:11)
[2022-07-09] MEDS: ATORVASTATIN 20 MG TAB PO SCH (22:11)
[2022-07-09] MEDS: GABAPENTIN 100 MG CAP PO SCH (22:11)
[2022-07-09] MEDS: METOPROLOL TART 50 MG TAB PO SCH (22:12)
[2022-07-09 23:00] VITALS: O2SAT 87
[2022-07-09] MEDS ORDERED: INSULIN LISPRO (NovoLOG) PER UNIT SC STA (23:13)
[2022-07-09] MEDS: zolPIDEM TARTRATE 5 MG TAB PO SCH (23:26)
[2022-07-09] MEDS: diazePAM 5MG TABLET PO SCH (23:26)
[2022-07-09 23:54] VITALS: BP 131/62
[2022-07-10] VITALS (17 sets, daily range): BP systolic 134–144; BP diastolic 60–65; O2SAT 89–95
[2022-07-10] MEDS: IPRATROPIUM 0.5MG/ALBUTEROL 2.5MG INH SOL UD 3ML (DUONEB) INH SCH ×4 (02:25→20:25)
[2022-07-10] MEDS: LEVOTHYROXINE 88MCG TABLET (0.088 MG) PO SCH (05:15)
[2022-07-10] MEDS: ACETAMINOPHEN TAB 650MG DOSE (2X325MG) PO PRN ×2 (05:59→22:38)
[2022-07-10] MEDS ORDERED: ACETAMINOPHEN TAB 650MG DOSE (2X325MG) PO ONE (06:10)
[2022-07-10 06:29] LABS: HEMATOCRIT 32.6 % (36.0-47.0); HEMOGLOBIN 10.5 g/dl (12.0-15.5); MEAN CORPUSCULAR HEMOGLOBIN 31.8 pg (27.0-33.0); MEAN CORPUSCULAR HGB CONC 32.2 g/dl (32.0-36.5); MEAN CORPUSCULAR VOLUME 98.8 fl (80.0-96.0); PLATELET COUNT, AUTOMATED 264 10^3/uL (150-450); WHITE BLOOD COUNT 6.7 10^3/uL (4.0-10.0)
[2022-07-10 06:48] LABS: CALCIUM LEVEL 9.1 MG/DL (8.3-10.6); CREATININE FOR GFR 1.45 MG/DL (0.55-1.30); GLOMERULAR FILTRATION RATE 37.6 (>39); POTASSIUM SERUM 4.4 MMOL/L (3.5-5.1)
[2022-07-10] MEDS ORDERED: HumuLIN N INSULIN (NovoLIN N) PER UNIT SC SCH (08:00)
[2022-07-10] MEDS: INSULIN LISPRO (NovoLOG) PER UNIT SC SCH ×4 (08:20→21:00)
[2022-07-10] MEDS: PARoxetine 20MG TABLET PO SCH (08:21)
[2022-07-10] MEDS: OMEPRAZOLE 20MG CAP PO SCH (08:21)
[2022-07-10] MEDS: ASPIRIN 81MG ENTERIC TABLET PO SCH (08:21)
[2022-07-10] MEDS: diazePAM 5MG TABLET PO SCH ×2 (08:21→21:16)
[2022-07-10] MEDS: METOPROLOL TART 50 MG TAB PO SCH (08:22)
[2022-07-10] MEDS: APIXABAN 5 MG TAB (ELIQUIS) PO SCH ×2 (08:22→21:16)
[2022-07-10] MEDS: FUROSEMIDE 40MG/4ML VIAL IV SCH ×2 (08:53→18:25)
[2022-07-10] MEDS ORDERED: LEVEMIR (INSULIN DETEMIR) 1 UNITS/0.01ML SC SCH (09:00)
[2022-07-10] MEDS ORDERED: FUROSEMIDE 40 MG TAB PO SCH (09:00)
[2022-07-10] MEDS: DAPAGLIFLOZIN PROPANEDIOL 10MG TABLET (FARXIGA) PO SCH (10:15)
[2022-07-10] MEDS: FLUTICASONE PROP 0.05% NASAL SPRAY 16 GM (FLONASE) NARES SCH ×2 (10:16→21:17)
[2022-07-10 11:27] LABS: ABG BASE EXCESS -0.3 (-2.0-2.0); ABG HCO3 24.5 MEQ/L (22.0-26.0); ABG O2 SATURATION 93.6 % (95.0-99.0); ABG PARTIAL PRESSURE CO2 40.7 mmHg (35.0-45.0); ABG PARTIAL PRESSURE O2 71.2 mmHg (75.0-100.0); ABG STANDARD HCO3 24.1 MEQ/L (22.0-26.0); ABG TOTAL CO2 25.7 MEQ/L (23.0-31.0); ABG pH (ARTERIAL) 7.397 UNITS (7.350-7.450)
[2022-07-10] MEDS: HumuLIN N INSULIN (NovoLIN N) PER UNIT SC SCH (18:26)
[2022-07-10] MEDS: METOPROLOL TART 25 MG TABLET PO SCH (21:16)
[2022-07-10] MEDS: GABAPENTIN 100 MG CAP PO SCH (21:16)
[2022-07-10] MEDS: zolPIDEM TARTRATE 5 MG TAB PO SCH (21:16)
[2022-07-10] MEDS: ATORVASTATIN 20 MG TAB PO SCH (21:16)
[2022-07-11] VITALS (22 sets, daily range): BP systolic 108–147; BP diastolic 48–81; O2SAT 85–95
[2022-07-11] MEDS ORDERED: traMADol 50 MG TAB PO ONE (01:00)
[2022-07-11] MEDS: FUROSEMIDE 40MG/4ML VIAL IV SCH ×4 (01:20→22:00)
[2022-07-11] MEDS: IPRATROPIUM 0.5MG/ALBUTEROL 2.5MG INH SOL UD 3ML (DUONEB) INH SCH ×4 (01:56→19:53)
[2022-07-11 05:37] LABS: BASO # 0.1 10^3/uL (0.0-0.2); BASO % 0.7 % (0.0-1.0); EOS # 0.1 10^3/uL (0.0-0.5); EOS % 1.2 % (0.0-3.0); HEMOGLOBIN 10.2 g/dl (12.0-15.5); MEAN CORPUSCULAR HEMOGLOBIN 31.7 pg (27.0-33.0); MEAN CORPUSCULAR HGB CONC 31.9 g/dl (32.0-36.5); MEAN CORPUSCULAR VOLUME 99.4 fl (80.0-96.0); MONO # 0.8 10^3/uL (0.0-0.8); MONO % 8.6 % (2.0-8.0); NEUTROPHILS # 6.7 10^3/uL (1.5-8.5); NEUTROPHILS % 77.2 % (36.0-66.0); PLATELET COUNT, AUTOMATED 281 10^3/uL (150-450); RED BLOOD COUNT 3.22 10^6/uL (4.00-5.40); WHITE BLOOD COUNT 8.7 10^3/uL (4.0-10.0)
[2022-07-11] MEDS: LEVOTHYROXINE 88MCG TABLET (0.088 MG) PO SCH (05:37)
[2022-07-11 06:08] LABS: CALCIUM LEVEL 9.4 MG/DL (8.3-10.6); CREATININE FOR GFR 1.6 MG/DL (0.55-1.30); GLOMERULAR FILTRATION RATE 33.5 (>39); POTASSIUM SERUM 3.9 MMOL/L (3.5-5.1)
[2022-07-11 08:10] LABS: MAGNESIUM LEVEL 1.5 MG/DL (1.8-2.4)
[2022-07-11] MEDS: HumuLIN N INSULIN (NovoLIN N) PER UNIT SC SCH ×2 (08:23→17:57)
[2022-07-11] MEDS: INSULIN LISPRO (NovoLOG) PER UNIT SC SCH ×4 (08:23→21:00)
[2022-07-11] MEDS: ASPIRIN 81MG ENTERIC TABLET PO SCH (08:24)
[2022-07-11] MEDS: ACETAMINOPHEN TAB 650MG DOSE (2X325MG) PO PRN (08:24)
[2022-07-11] MEDS: DAPAGLIFLOZIN PROPANEDIOL 10MG TABLET (FARXIGA) PO SCH (08:24)
[2022-07-11] MEDS: diazePAM 5MG TABLET PO SCH ×2 (08:25→21:57)
[2022-07-11] MEDS: PARoxetine 20MG TABLET PO SCH (08:26)
[2022-07-11] MEDS: METOPROLOL TART 25 MG TABLET PO SCH ×2 (08:26→21:59)
[2022-07-11] MEDS: OMEPRAZOLE 20MG CAP PO SCH (08:26)
[2022-07-11] MEDS: APIXABAN 5 MG TAB (ELIQUIS) PO SCH ×2 (08:26→21:58)
[2022-07-11] MEDS: FLUTICASONE PROP 0.05% NASAL SPRAY 16 GM (FLONASE) NARES SCH ×2 (08:27→22:00)
[2022-07-11] MEDS: OXYMETAZOLINE 0.05% NASAL SPRAY (AFRIN) SCH ×3 (09:00→22:00)
[2022-07-11 09:10] LABS: ABG BASE EXCESS 3.4 (-2.0-2.0); ABG HCO3 28.6 MEQ/L (22.0-26.0); ABG O2 SATURATION 93.1 % (95.0-99.0); ABG PARTIAL PRESSURE O2 70.5 mmHg (75.0-100.0); ABG STANDARD HCO3 27.4 MEQ/L (22.0-26.0); ABG pH (ARTERIAL) 7.412 UNITS (7.350-7.450)
[2022-07-11] MEDS ORDERED: MAG SULF 1GM/100ML (MAG RUN) 1 GM in IV 1 EA IV SCH (10:00)
[2022-07-11] MEDS: MAGNESIUM OXIDE 400MG TAB (MAG-OX) PO SCH ×2 (10:24→21:57)
[2022-07-11] MEDS: POTASSIUM CHLORIDE 10MEQ SR TABLET PO SCH (15:12)
[2022-07-11] MEDS: zolPIDEM TARTRATE 5 MG TAB PO SCH (21:57)
[2022-07-11] MEDS: ATORVASTATIN 20 MG TAB PO SCH (21:58)
[2022-07-11] MEDS: GABAPENTIN 100 MG CAP PO SCH (21:59)
[2022-07-12] VITALS (25 sets, daily range): BP systolic 128–138; BP diastolic 51–68; O2SAT 77–99
[2022-07-12] MEDS: IPRATROPIUM 0.5MG/ALBUTEROL 2.5MG INH SOL UD 3ML (DUONEB) INH SCH ×4 (01:08→19:33)
[2022-07-12] MEDS: LEVOTHYROXINE 88MCG TABLET (0.088 MG) PO SCH (05:19)
[2022-07-12] MEDS: FUROSEMIDE 40MG/4ML VIAL IV SCH ×3 (05:20→21:44)
[2022-07-12 05:43] LABS: BASO # 0.1 10^3/uL (0.0-0.2); BASO % 0.5 % (0.0-1.0); EOS # 0.3 10^3/uL (0.0-0.5); EOS % 3.6 % (0.0-3.0); HEMATOCRIT 35.2 % (36.0-47.0); HEMOGLOBIN 11.4 g/dl (12.0-15.5); LYMPH # 0.5 10^3/uL (1.5-5.0); MEAN CORPUSCULAR HEMOGLOBIN 31.6 pg (27.0-33.0); MEAN CORPUSCULAR HGB CONC 32.4 g/dl (32.0-36.5); MEAN CORPUSCULAR VOLUME 97.5 fl (80.0-96.0); MONO # 0.9 10^3/uL (0.0-0.8); MONO % 9.3 % (2.0-8.0); NEUTROPHILS # 7.4 10^3/uL (1.5-8.5); NEUTROPHILS % 81.3 % (36.0-66.0); PLATELET COUNT, AUTOMATED 329 10^3/uL (150-450); RED BLOOD COUNT 3.61 10^6/uL (4.00-5.40); WHITE BLOOD COUNT 9.2 10^3/uL (4.0-10.0)
[2022-07-12 06:17] LABS: CREATININE FOR GFR 1.57 MG/DL (0.55-1.30); GLOMERULAR FILTRATION RATE 34.3 (>39); MAGNESIUM LEVEL 1.8 MG/DL (1.8-2.4); PERCENT SATURATION 6.1 % (13.2-45.0); POTASSIUM SERUM 3.8 MMOL/L (3.5-5.1)
[2022-07-12 06:19] LABS: FERRITIN 53.4 NG/ML (7.3-270.7)
[2022-07-12] MEDS: TIOTROPIUM INHALER/CAPSULE (SPIRIVA) INH SCH (08:00)
[2022-07-12] MEDS: OXYMETAZOLINE 0.05% NASAL SPRAY (AFRIN) SCH ×2 (08:34→22:07)
[2022-07-12] MEDS: FLUTICASONE PROP 0.05% NASAL SPRAY 16 GM (FLONASE) NARES SCH ×3 (08:34→21:03)
[2022-07-12] MEDS: INSULIN LISPRO (NovoLOG) PER UNIT SC SCH ×4 (08:35→20:59)
[2022-07-12] MEDS: ASPIRIN 81MG ENTERIC TABLET PO SCH (08:35)
[2022-07-12] MEDS: HumuLIN N INSULIN (NovoLIN N) PER UNIT SC SCH ×2 (08:35→17:50)
[2022-07-12] MEDS: diazePAM 5MG TABLET PO SCH ×2 (08:36→21:00)
[2022-07-12] MEDS: OMEPRAZOLE 20MG CAP PO SCH (08:36)
[2022-07-12] MEDS: POTASSIUM CHLORIDE 10MEQ SR TABLET PO SCH (08:36)
[2022-07-12] MEDS: PARoxetine 20MG TABLET PO SCH (08:36)
[2022-07-12] MEDS: APIXABAN 5 MG TAB (ELIQUIS) PO SCH ×2 (08:36→21:02)
[2022-07-12] MEDS: DAPAGLIFLOZIN PROPANEDIOL 10MG TABLET (FARXIGA) PO SCH (08:36)
[2022-07-12] MEDS: METOPROLOL TART 25 MG TABLET PO SCH ×2 (08:37→21:02)
[2022-07-12] MEDS ORDERED: FERRIC CARBOXYMALTOSE INJ 750 MG, VIAL MATE ADAPTER 1 EACH in NS 250 ML IV ONE (09:00)
[2022-07-12] MEDS ORDERED: POTASSIUM CHLORIDE 10MEQ SR TABLET PO ONE (18:00)
[2022-07-12] MEDS: ATORVASTATIN 20 MG TAB PO SCH (21:01)
[2022-07-12] MEDS: zolPIDEM TARTRATE 5 MG TAB PO SCH (21:01)
[2022-07-12] MEDS: GABAPENTIN 100 MG CAP PO SCH (21:02)
[2022-07-13] VITALS (26 sets, daily range): BP systolic 121–142; BP diastolic 56–65; O2SAT 84–94
[2022-07-13] MEDS: IPRATROPIUM 0.5MG/ALBUTEROL 2.5MG INH SOL UD 3ML (DUONEB) INH SCH ×4 (02:33→21:16)
[2022-07-13] MEDS: LEVOTHYROXINE 88MCG TABLET (0.088 MG) PO SCH (05:24)
[2022-07-13] MEDS: FUROSEMIDE 40MG/4ML VIAL IV SCH ×3 (05:25→22:00)
[2022-07-13 05:59] LABS: BASO # 0.1 10^3/uL (0.0-0.2); BASO % 0.6 % (0.0-1.0); EOS # 0.5 10^3/uL (0.0-0.5); EOS % 5.5 % (0.0-3.0); HEMATOCRIT 40.8 % (36.0-47.0); HEMOGLOBIN 13.1 g/dl (12.0-15.5); LYMPH # 0.7 10^3/uL (1.5-5.0); LYMPH % 7.7 % (24.0-44.0); MEAN CORPUSCULAR HEMOGLOBIN 31.6 pg (27.0-33.0); MEAN CORPUSCULAR HGB CONC 32.1 g/dl (32.0-36.5); MEAN CORPUSCULAR VOLUME 98.6 fl (80.0-96.0); MONO # 0.8 10^3/uL (0.0-0.8); MONO % 8.7 % (2.0-8.0); NEUTROPHILS # 7.2 10^3/uL (1.5-8.5); NEUTROPHILS % 77.2 % (36.0-66.0); PLATELET COUNT, AUTOMATED 371 10^3/uL (150-450); RED BLOOD COUNT 4.14 10^6/uL (4.00-5.40); WHITE BLOOD COUNT 9.3 10^3/uL (4.0-10.0)
[2022-07-13 06:17] LABS: CALCIUM LEVEL 9.9 MG/DL (8.3-10.6); CREATININE FOR GFR 1.69 MG/DL (0.55-1.30); GLOMERULAR FILTRATION RATE 31.5 (>39); MAGNESIUM LEVEL 1.8 MG/DL (1.8-2.4); POTASSIUM SERUM 4.2 MMOL/L (3.5-5.1)
[2022-07-13] MEDS: TIOTROPIUM INHALER/CAPSULE (SPIRIVA) INH SCH (07:30)
[2022-07-13] MEDS: INSULIN LISPRO (NovoLOG) PER UNIT SC SCH ×4 (09:02→20:18)
[2022-07-13] MEDS: HumuLIN N INSULIN (NovoLIN N) PER UNIT SC SCH ×2 (09:02→18:33)
[2022-07-13] MEDS: MAGNESIUM OXIDE 400MG TAB (MAG-OX) PO SCH ×2 (09:43→20:19)
[2022-07-13] MEDS: APIXABAN 5 MG TAB (ELIQUIS) PO SCH ×2 (09:43→20:20)
[2022-07-13] MEDS: diazePAM 5MG TABLET PO SCH ×2 (09:44→20:39)
[2022-07-13] MEDS: OMEPRAZOLE 20MG CAP PO SCH (09:44)
[2022-07-13] MEDS: PARoxetine 20MG TABLET PO SCH (09:45)
[2022-07-13] MEDS: ASPIRIN 81MG ENTERIC TABLET PO SCH (09:45)
[2022-07-13] MEDS: METOPROLOL TART 25 MG TABLET PO SCH ×2 (09:49→20:19)
[2022-07-13] MEDS: DAPAGLIFLOZIN PROPANEDIOL 10MG TABLET (FARXIGA) PO SCH (09:49)
[2022-07-13] MEDS: OXYMETAZOLINE 0.05% NASAL SPRAY (AFRIN) SCH ×4 (09:50→21:00)
[2022-07-13] MEDS: FLUTICASONE PROP 0.05% NASAL SPRAY 16 GM (FLONASE) NARES SCH ×3 (09:50→20:20)
[2022-07-13] MEDS: GABAPENTIN 100 MG CAP PO SCH (20:20)
[2022-07-13] MEDS: ATORVASTATIN 20 MG TAB PO SCH (20:20)
[2022-07-13] MEDS: zolPIDEM TARTRATE 5 MG TAB PO SCH (20:39)
[2022-07-14] VITALS (21 sets, daily range): BP systolic 113–150; BP diastolic 58–67; O2SAT 86–95
[2022-07-14] MEDS: IPRATROPIUM 0.5MG/ALBUTEROL 2.5MG INH SOL UD 3ML (DUONEB) INH SCH ×4 (00:57→20:41)
[2022-07-14] MEDS: LEVOTHYROXINE 88MCG TABLET (0.088 MG) PO SCH (05:22)
[2022-07-14] MEDS: FUROSEMIDE 40MG/4ML VIAL IV SCH ×3 (05:23→21:13)
[2022-07-14 06:03] LABS: BASO # 0.1 10^3/uL (0.0-0.2); BASO % 0.9 % (0.0-1.0); EOS # 0.6 10^3/uL (0.0-0.5); EOS % 7.7 % (0.0-3.0); HEMATOCRIT 39.3 % (36.0-47.0); HEMOGLOBIN 12.8 g/dl (12.0-15.5); LYMPH # 0.7 10^3/uL (1.5-5.0); LYMPH % 8.8 % (24.0-44.0); MEAN CORPUSCULAR HEMOGLOBIN 31.8 pg (27.0-33.0); MEAN CORPUSCULAR HGB CONC 32.6 g/dl (32.0-36.5); MEAN CORPUSCULAR VOLUME 97.8 fl (80.0-96.0); MONO # 0.9 10^3/uL (0.0-0.8); MONO % 11.2 % (2.0-8.0); NEUTROPHILS # 5.7 10^3/uL (1.5-8.5); PLATELET COUNT, AUTOMATED 350 10^3/uL (150-450); RED BLOOD COUNT 4.02 10^6/uL (4.00-5.40); WHITE BLOOD COUNT 8.1 10^3/uL (4.0-10.0)
[2022-07-14 06:31] LABS: CALCIUM LEVEL 9.8 MG/DL (8.3-10.6); CREATININE FOR GFR 1.74 MG/DL (0.55-1.30); GLOMERULAR FILTRATION RATE 30.4 (>39); MAGNESIUM LEVEL 1.9 MG/DL (1.8-2.4); POTASSIUM SERUM 3.6 MMOL/L (3.5-5.1)
[2022-07-14] MEDS ORDERED: POTASSIUM CHLORIDE 10MEQ SR TABLET PO ONE (07:05)
[2022-07-14] MEDS: TIOTROPIUM INHALER/CAPSULE (SPIRIVA) INH SCH (07:49)
[2022-07-14] MEDS: DAPAGLIFLOZIN PROPANEDIOL 10MG TABLET (FARXIGA) PO SCH (08:19)
[2022-07-14] MEDS: HumuLIN N INSULIN (NovoLIN N) PER UNIT SC SCH ×2 (08:19→18:04)
[2022-07-14] MEDS: INSULIN LISPRO (NovoLOG) PER UNIT SC SCH ×4 (08:19→21:13)
[2022-07-14] MEDS: APIXABAN 5 MG TAB (ELIQUIS) PO SCH ×2 (08:19→21:15)
[2022-07-14] MEDS: ASPIRIN 81MG ENTERIC TABLET PO SCH (08:20)
[2022-07-14] MEDS: OMEPRAZOLE 20MG CAP PO SCH (08:20)
[2022-07-14] MEDS: METOPROLOL TART 25 MG TABLET PO SCH ×2 (08:20→21:14)
[2022-07-14] MEDS: MAGNESIUM OXIDE 400MG TAB (MAG-OX) PO SCH ×2 (08:20→21:14)
[2022-07-14] MEDS: PARoxetine 20MG TABLET PO SCH (08:20)
[2022-07-14] MEDS: FLUTICASONE PROP 0.05% NASAL SPRAY 16 GM (FLONASE) NARES SCH ×3 (08:21→21:15)
[2022-07-14] MEDS: diazePAM 5MG TABLET PO SCH ×2 (08:21→21:14)
[2022-07-14] MEDS: LACTOBACILLUS ACIDOPHILUS CAP (BACID) PO SCH ×2 (11:52→18:03)
[2022-07-14 15:07] LABS: BODY FLUID CULTURE Not indicated. (.); LEGIONELLA ANTIGEN URINE Negative (Negative); ORGANISM ID Not indicated. (.); SPECIMEN SOURCE Urine (.); URINE STREP PNEUMONIAE ANTIGEN Negative (Negative)
[2022-07-14] MEDS: zolPIDEM TARTRATE 5 MG TAB PO SCH (21:13)
[2022-07-14] MEDS: GABAPENTIN 100 MG CAP PO SCH (21:14)
[2022-07-14] MEDS: ATORVASTATIN 20 MG TAB PO SCH (21:14)
[2022-07-15] VITALS (28 sets, daily range): BP systolic 120–134; BP diastolic 56–68; O2SAT 84–96
[2022-07-15] MEDS: IPRATROPIUM 0.5MG/ALBUTEROL 2.5MG INH SOL UD 3ML (DUONEB) INH SCH ×4 (02:04→20:33)
[2022-07-15 05:38] LABS: BASO # 0.1 10^3/uL (0.0-0.2); BASO % 0.8 % (0.0-1.0); EOS # 0.5 10^3/uL (0.0-0.5); EOS % 5.2 % (0.0-3.0); HEMATOCRIT 37.4 % (36.0-47.0); HEMOGLOBIN 12.3 g/dl (12.0-15.5); LYMPH # 0.8 10^3/uL (1.5-5.0); LYMPH % 8.6 % (24.0-44.0); MEAN CORPUSCULAR HEMOGLOBIN 31.6 pg (27.0-33.0); MEAN CORPUSCULAR HGB CONC 32.9 g/dl (32.0-36.5); MEAN CORPUSCULAR VOLUME 96.1 fl (80.0-96.0); MONO % 10.7 % (2.0-8.0); NEUTROPHILS # 6.6 10^3/uL (1.5-8.5); NEUTROPHILS % 74.5 % (36.0-66.0); PLATELET COUNT, AUTOMATED 343 10^3/uL (150-450); RED BLOOD COUNT 3.89 10^6/uL (4.00-5.40); WHITE BLOOD COUNT 8.8 10^3/uL (4.0-10.0)
[2022-07-15] MEDS: FUROSEMIDE 40MG/4ML VIAL IV SCH ×3 (05:43→22:08)
[2022-07-15] MEDS: LEVOTHYROXINE 88MCG TABLET (0.088 MG) PO SCH (05:43)
[2022-07-15 05:58] LABS: CALCIUM LEVEL 9.3 MG/DL (8.3-10.6); CREATININE FOR GFR 1.84 MG/DL (0.55-1.30); GLOMERULAR FILTRATION RATE 28.5 (>39); MAGNESIUM LEVEL 1.9 MG/DL (1.8-2.4); POTASSIUM SERUM 3.8 MMOL/L (3.5-5.1)
[2022-07-15] MEDS: TIOTROPIUM INHALER/CAPSULE (SPIRIVA) INH SCH (07:57)
[2022-07-15] MEDS: FLUTICASONE PROP 0.05% NASAL SPRAY 16 GM (FLONASE) NARES SCH ×2 (08:11→20:32)
[2022-07-15] MEDS: LACTOBACILLUS ACIDOPHILUS CAP (BACID) PO SCH ×2 (08:14→17:46)
[2022-07-15] MEDS: PARoxetine 20MG TABLET PO SCH (08:14)
[2022-07-15] MEDS: OMEPRAZOLE 20MG CAP PO SCH (08:14)
[2022-07-15] MEDS: ASPIRIN 81MG ENTERIC TABLET PO SCH (08:14)
[2022-07-15] MEDS: METOPROLOL TART 25 MG TABLET PO SCH ×2 (08:14→20:31)
[2022-07-15] MEDS: diazePAM 5MG TABLET PO SCH ×2 (08:15→22:08)
[2022-07-15] MEDS: APIXABAN 5 MG TAB (ELIQUIS) PO SCH ×2 (08:15→20:31)
[2022-07-15] MEDS: MAGNESIUM OXIDE 400MG TAB (MAG-OX) PO SCH ×2 (08:15→20:31)
[2022-07-15] MEDS: DAPAGLIFLOZIN PROPANEDIOL 10MG TABLET (FARXIGA) PO SCH (08:15)
[2022-07-15] MEDS: INSULIN LISPRO (NovoLOG) PER UNIT SC SCH ×4 (08:49→20:15)
[2022-07-15] MEDS: HumuLIN N INSULIN (NovoLIN N) PER UNIT SC SCH ×2 (08:50→18:50)
[2022-07-15] MEDS: POTASSIUM CHLORIDE 10MEQ SR TABLET PO SCH ×3 (13:46→20:31)
[2022-07-15] MEDS: GABAPENTIN 100 MG CAP PO SCH (20:31)
[2022-07-15] MEDS: ATORVASTATIN 20 MG TAB PO SCH (20:31)
[2022-07-15] MEDS: zolPIDEM TARTRATE 5 MG TAB PO SCH (22:08)
[2022-07-16] VITALS (17 sets, daily range): BP systolic 124–134; BP diastolic 59–63; O2SAT 90–97
[2022-07-16] MEDS: IPRATROPIUM 0.5MG/ALBUTEROL 2.5MG INH SOL UD 3ML (DUONEB) INH SCH ×2 (02:42→07:52)
[2022-07-16] MEDS: LEVOTHYROXINE 88MCG TABLET (0.088 MG) PO SCH (05:56)
[2022-07-16] MEDS: FUROSEMIDE 40MG/4ML VIAL IV SCH (05:56)
[2022-07-16 06:08] LABS: BASO # 0.1 10^3/uL (0.0-0.2); EOS # 0.6 10^3/uL (0.0-0.5); EOS % 7.5 % (0.0-3.0); HEMOGLOBIN 12.1 g/dl (12.0-15.5); LYMPH # 0.7 10^3/uL (1.5-5.0); LYMPH % 9.4 % (24.0-44.0); MEAN CORPUSCULAR HEMOGLOBIN 31.3 pg (27.0-33.0); MEAN CORPUSCULAR HGB CONC 31.8 g/dl (32.0-36.5); MEAN CORPUSCULAR VOLUME 98.4 fl (80.0-96.0); MONO # 1.1 10^3/uL (0.0-0.8); NEUTROPHILS # 5.2 10^3/uL (1.5-8.5); NEUTROPHILS % 67.6 % (36.0-66.0); PLATELET COUNT, AUTOMATED 327 10^3/uL (150-450); RED BLOOD COUNT 3.86 10^6/uL (4.00-5.40); WHITE BLOOD COUNT 7.7 10^3/uL (4.0-10.0)
[2022-07-16 06:36] LABS: CALCIUM LEVEL 9.6 MG/DL (8.3-10.6); CREATININE FOR GFR 1.99 MG/DL (0.55-1.30); GLOMERULAR FILTRATION RATE 26.1 (>39); POTASSIUM SERUM 4.6 MMOL/L (3.5-5.1)
[2022-07-16] MEDS: TIOTROPIUM INHALER/CAPSULE (SPIRIVA) INH SCH (07:52)
[2022-07-16] MEDS: HumuLIN N INSULIN (NovoLIN N) PER UNIT SC SCH ×2 (08:35→18:16)
[2022-07-16] MEDS: INSULIN LISPRO (NovoLOG) PER UNIT SC SCH ×4 (08:35→20:14)
[2022-07-16] MEDS: diazePAM 5MG TABLET PO SCH ×2 (08:36→22:08)
[2022-07-16] MEDS: LACTOBACILLUS ACIDOPHILUS CAP (BACID) PO SCH ×2 (08:36→18:16)
[2022-07-16] MEDS: DAPAGLIFLOZIN PROPANEDIOL 10MG TABLET (FARXIGA) PO SCH (08:36)
[2022-07-16] MEDS: ASPIRIN 81MG ENTERIC TABLET PO SCH (08:36)
[2022-07-16] MEDS: PARoxetine 20MG TABLET PO SCH (08:37)
[2022-07-16] MEDS: MAGNESIUM OXIDE 400MG TAB (MAG-OX) PO SCH ×2 (08:37→20:04)
[2022-07-16] MEDS: OMEPRAZOLE 20MG CAP PO SCH (08:37)
[2022-07-16] MEDS: METOPROLOL TART 25 MG TABLET PO SCH ×2 (08:37→20:09)
[2022-07-16] MEDS: APIXABAN 5 MG TAB (ELIQUIS) PO SCH ×2 (08:37→20:04)
[2022-07-16] MEDS: TORSEMIDE (DEMADEX) 50 MG PER 1/2 TAB PO SCH ×2 (11:11→18:16)
[2022-07-16] MEDS: FLUTICASONE PROP 0.05% NASAL SPRAY 16 GM (FLONASE) NARES SCH ×2 (11:12→20:10)
[2022-07-16] MEDS: HYDROCORTISONE 1% CREAM 30GM TOP SCH (15:17)
[2022-07-16] MEDS: ATORVASTATIN 20 MG TAB PO SCH (20:03)
[2022-07-16] MEDS: GABAPENTIN 100 MG CAP PO SCH (20:04)
[2022-07-16] MEDS: zolPIDEM TARTRATE 5 MG TAB PO SCH (22:08)
[2022-07-17 06:00] VITALS: BP 139/58
[2022-07-17] MEDS: LEVOTHYROXINE 88MCG TABLET (0.088 MG) PO SCH (06:05)
[2022-07-17 06:57] LABS: HEMOGLOBIN 13.3 g/dl (12.0-15.5); MEAN CORPUSCULAR HEMOGLOBIN 31.4 pg (27.0-33.0); MEAN CORPUSCULAR HGB CONC 31.7 g/dl (32.0-36.5); MEAN CORPUSCULAR VOLUME 99.3 fl (80.0-96.0); PLATELET COUNT, AUTOMATED 357 10^3/uL (150-450); RED BLOOD COUNT 4.23 10^6/uL (4.00-5.40)
[2022-07-17] MEDS: TIOTROPIUM INHALER/CAPSULE (SPIRIVA) INH SCH (07:17)
[2022-07-17 07:22] LABS: CALCIUM LEVEL 10.1 MG/DL (8.3-10.6); CREATININE FOR GFR 2.02 MG/DL (0.55-1.30); GLOMERULAR FILTRATION RATE 25.6 (>39); MAGNESIUM LEVEL 2.3 MG/DL (1.8-2.4); POTASSIUM SERUM 4.1 MMOL/L (3.5-5.1)
[2022-07-17] MEDS: INSULIN LISPRO (NovoLOG) PER UNIT SC SCH (07:30)
[2022-07-17] MEDS: HumuLIN N INSULIN (NovoLIN N) PER UNIT SC SCH (07:30)
[2022-07-17] MEDS ORDERED: METO5TA PO (07:39)
[2022-07-17] MEDS ORDERED: TORS100T PO (07:39)
[2022-07-17] MEDS ORDERED: METO1TAB87 PO (07:41)
[2022-07-17] MEDS: LACTOBACILLUS ACIDOPHILUS CAP (BACID) PO SCH (08:04)
[2022-07-17] MEDS: APIXABAN 5 MG TAB (ELIQUIS) PO SCH (08:05)
[2022-07-17] MEDS: METOPROLOL TART 25 MG TABLET PO SCH (08:05)
[2022-07-17] MEDS: TORSEMIDE (DEMADEX) 50 MG PER 1/2 TAB PO SCH (08:05)
[2022-07-17] MEDS: MAGNESIUM OXIDE 400MG TAB (MAG-OX) PO SCH (08:05)
[2022-07-17] MEDS: PARoxetine 20MG TABLET PO SCH (08:05)
[2022-07-17] MEDS: DAPAGLIFLOZIN PROPANEDIOL 10MG TABLET (FARXIGA) PO SCH (08:05)
[2022-07-17] MEDS: OMEPRAZOLE 20MG CAP PO SCH (08:05)
[2022-07-17] MEDS: ASPIRIN 81MG ENTERIC TABLET PO SCH (08:05)
[2022-07-17] MEDS: HYDROCORTISONE 1% CREAM 30GM TOP SCH (08:06)
[2022-07-17] MEDS: FLUTICASONE PROP 0.05% NASAL SPRAY 16 GM (FLONASE) NARES SCH (08:06)
[2022-07-17] MEDS: diazePAM 5MG TABLET PO SCH (08:06)
[2022-07-17 09:23] VITALS: O2SAT 94
== END 2022-07-17 12:24 | disposition home health service (06) | DRG 291 ==
LOC: M ED 16:21 → EDBD 16:21 → M ED INP 20:15 → ENRESERV 21:09 → M PCU 21:44 → M MSPAV 07-16 14:04
PROVIDERS: ADMIT Family Medicine; ATTEND Internal Medicine
PROC: B246ZZZ Ultrasonography of Right and Left Heart (ICD-10-PCS; principal; 2022-07-12)
DX: I13.0 Hypertensive heart and chronic kidney disease with heart failure and stage 1 through stage 4 chronic kidney disease, or unspecified chronic kidney disease (principal); J18.1 Lobar pneumonia, unspecified organism; J96.21 Acute and chronic respiratory failure with hypoxia; I50.33 Acute on chronic diastolic (congestive) heart failure; J44.0 Chronic obstructive pulmonary disease with (acute) lower respiratory infection; I25.10 Atherosclerotic heart disease of native coronary artery without angina pectoris; I48.91 Unspecified atrial fibrillation; N18.31 Chronic kidney disease, stage 3a; E03.9 Hypothyroidism, unspecified; K21.9 Gastro-esophageal reflux disease without esophagitis; M81.0 Age-related osteoporosis without current pathological fracture; M10.9 Gout, unspecified; M54.9 Dorsalgia, unspecified; G89.29 Other chronic pain; E11.22 Type 2 diabetes mellitus with diabetic chronic kidney disease; G25.81 Restless legs syndrome; D50.9 Iron deficiency anemia, unspecified; F41.8 Other specified anxiety disorders; R07.89 Other chest pain; E11.42 Type 2 diabetes mellitus with diabetic polyneuropathy; E83.42 Hypomagnesemia; G47.00 Insomnia, unspecified; Z66 Do not resuscitate; Z79.4 Long term (current) use of insulin; Z79.890 Hormone replacement therapy; Z79.01 Long term (current) use of anticoagulants; Z79.899 Other long term (current) drug therapy; Z88.2 Allergy status to sulfonamides; Z95.5 Presence of coronary angioplasty implant and graft; Z88.5 Allergy status to narcotic agent; Z88.8 Allergy status to other drugs, medicaments and biological substances; Z90.49 Acquired absence of other specified parts of digestive tract; Z91.048 Other nonmedicinal substance allergy status; Z90.79 Acquired absence of other genital organ(s); Z87.891 Personal history of nicotine dependence; Z68.35 Body mass index [BMI] 35.0-35.9, adult; I27.20 Pulmonary hypertension, unspecified

== ENCOUNTER → 2022-07-09 | Outpatient (REF) | payer OTHER ==
[~2022-07-09] MED LIST changes: +CLIN1SOL TOP; +LEVO88TA3 PO; +METO50TA7 PO; +OMEG10002 PO; +PARO20TA3 PO; -PAXI20TA29 PO; +PAXI20TA30 PO; +PROBCAP14 PO; +VENTAER INH
[2022-07-09 17:59] LABS: BASO # 0.1 10^3/uL (0.0-0.2); BASO % 0.7 % (0.0-1.0); EOS # 0.1 10^3/uL (0.0-0.5); EOS % 0.9 % (0.0-3.0); HEMATOCRIT 36.8 % (36.0-47.0); HEMOGLOBIN 11.3 g/dl (12.0-15.5); LYMPH # 0.6 10^3/uL (1.5-5.0); LYMPH % 5.8 % (24.0-44.0); MEAN CORPUSCULAR HEMOGLOBIN 31.4 pg (27.0-33.0); MEAN CORPUSCULAR HGB CONC 30.7 g/dl (32.0-36.5); MEAN CORPUSCULAR VOLUME 102.2 fl (80.0-96.0); MONO # 0.5 10^3/uL (0.0-0.8); MONO % 5.4 % (2.0-8.0); NEUTROPHILS # 8.6 10^3/uL (1.5-8.5); NEUTROPHILS % 86.7 % (36.0-66.0); PLATELET COUNT, AUTOMATED 336 10^3/uL (150-450); WHITE BLOOD COUNT 9.9 10^3/uL (4.0-10.0)
[2022-07-09 18:09] LABS: HEMOGLOBIN A1c 8.5 % (4.0-6.0)
[2022-07-09 18:27] LABS: ALBUMIN 3.7 G/DL (3.2-5.2); BILIRUBIN,TOTAL 1.3 MG/DL (0.3-1.2); CALCIUM LEVEL 9.6 MG/DL (8.3-10.6); CHOLESTEROL RISK RATIO 3.26 (<5); CREATININE FOR GFR 1.3 MG/DL (0.55-1.30); GLOMERULAR FILTRATION RATE 42.6 (>39); HDL CHOLESTEROL 47.5 MG/DL (>40); LDL CHOLESTEROL 85.5 MG/DL (<100); NON-HDL-C 107.5 MG/DL; POTASSIUM SERUM 4.2 MMOL/L (3.5-5.1); THYROID STIMULATING HORMONE 2.245 uIU/ML (0.55-4.78); TOTAL 25(OH) VITAMIN D 95.9 NG/ML (20.0-100.0); TOTAL PROTEIN 7.6 G/DL (5.7-8.2)
== END ==
LOC: M LAB REF 16:31
PROVIDERS: ATTEND Nurse Practitioner Family
DX: E55.9 Vitamin D deficiency, unspecified (principal); R53.83 Other fatigue; R17 Unspecified jaundice; Z68.35 Body mass index [BMI] 35.0-35.9, adult

== ENCOUNTER → 2022-11-09 | Outpatient (CLI) | payer OTHER ==
[~2022-11-09] MED LIST changes: +CLIN1SOL TOP; +LEVO88TA3 PO; +METO50TA7 PO; +METO5TA PO; +OMEG10002 PO; +PARO20TA3 PO; +PROBCAP14 PO; +TORS100T PO; +VENTAER INH
== END ==
LOC: M RAD 15:59
PROVIDERS: ATTEND Nurse Practitioner Family
DX: M71.21 Synovial cyst of popliteal space [Baker], right knee (principal); R22.41 Localized swelling, mass and lump, right lower limb

== ENCOUNTER → 2023-01-25 | Outpatient (REF) | payer OTHER, MEDICARE ==
[2023-01-25 18:02] LABS: CALCIUM LEVEL 9.8 MG/DL (8.3-10.6); CREATININE FOR GFR 1.3 MG/DL (0.55-1.30); GLOMERULAR FILTRATION RATE 42.5 (>39); POTASSIUM SERUM 4.6 MMOL/L (3.5-5.1)
== END ==
LOC: M LAB REF 16:38
PROVIDERS: ATTEND Nurse Practitioner Family
DX: I50.9 Heart failure, unspecified (principal)

== ENCOUNTER 2023-06-18 23:33 | Inpatient (IN) | payer OTHER ==
[~2023-06-18] VITALS: Ht 157.5 cm; Wt 71.0 kg
[2023-06-18] MEDS: NS 1,000 ML IV ONE (23:40)
[2023-06-19 00:47] LABS: VENOUS BASE EXCESS -2.6 (-2.0-2.0); VENOUS HCO3 23.5 MMOL/L (23.0-27.0); VENOUS O2 SATURATION 60.2 % (60.0-80.0); VENOUS PARTIAL PRESSURE CO2 46.1 mmHg (38.0-50.0); VENOUS PH 7.326 UNITS (7.330-7.430); VENOUS STANDARD HCO3 21.5 MMOL/L
[2023-06-19 00:56] LABS: BASO % 0.7 % (0.0-1.0); EOS % 0.2 % (0.0-3.0); HEMATOCRIT 35.2 % (36.0-47.0); HEMOGLOBIN 12.2 g/dl (12.0-15.5); LYMPH # 0.6 10^3/uL (1.5-5.0); LYMPH % 9.6 % (24.0-44.0); MEAN CORPUSCULAR HEMOGLOBIN 32.6 pg (27.0-33.0); MEAN CORPUSCULAR HGB CONC 34.7 g/dl (32.0-36.5); MEAN CORPUSCULAR VOLUME 94.1 fl (80.0-96.0); MONO # 0.5 10^3/uL (0.0-0.8); MONO % 8.6 % (2.0-8.0); NEUTROPHILS # 4.9 10^3/uL (1.5-8.5); NEUTROPHILS % 80.4 % (36.0-66.0); PLATELET COUNT, AUTOMATED 280 10^3/uL (150-450); RED BLOOD COUNT 3.74 10^6/uL (4.00-5.40); WHITE BLOOD COUNT 6.1 10^3/uL (4.0-10.0)
[2023-06-19 01:22] LABS: LIPASE 64 U/L (12-53)
[2023-06-19 01:24] LABS: ACETONE/KETONE 0.82 MMOL/L (0.02-0.27)
[2023-06-19 01:35] LABS: ALBUMIN 3.8 G/DL (3.2-5.2); ALKALINE PHOSPHATASE 144 U/L (46-116); ALT/SGPT 21 U/L (7.0-40); AST/SGOT 24 U/L (<34); BILIRUBIN,DIRECT 0.3 MG/DL (<0.4); BILIRUBIN,TOTAL 1.1 MG/DL (0.3-1.2); BLOOD UREA NITROGEN 26 MG/DL (9-23); CARBON DIOXIDE LEVEL 21 MMOL/L (20-31); CHLORIDE LEVEL 94 MMOL/L (98-107); CK-MB VALUE MASS < 1.0 NG/ML (<3.6); CPK CREATINE PHOSPHOKINASE 113 U/L (34-145); CREATININE FOR GFR 1.02 MG/DL (0.55-1.30); FREE T4 1.09 NG/DL (0.89-1.76); GLOMERULAR FILTRATION RATE 56.2 (>39); GLUCOSE, FASTING 661 MG/DL (74-106); MB/CK RELATIVE INDEX 0.88 (< OR =4); POTASSIUM SERUM 5.3 MMOL/L (3.5-5.1); SODIUM LEVEL 122 MMOL/L (136-145); THYROID STIMULATING HORMONE 3.748 uIU/ML (0.55-4.78); TOTAL PROTEIN 7.5 G/DL (5.7-8.2)
[2023-06-19] MEDS: HumuLIN R (REGULAR) INSULIN (NovoLIN R) **100U/ML** PER UNIT IV STA (01:49)
[2023-06-19 02:22] LABS: HEMOGLOBIN A1c > 14.0 % (4.0-6.0)
[2023-06-19] MEDS: ACETAMINOPHEN TAB 650MG DOSE (2X325MG) PO ONE (03:56)
[2023-06-19] MEDS: KCL 20MEQ IN 0.45NS 1000ML 1,000 ML IV SCH (03:56)
[2023-06-19] MEDS ORDERED: MOM 30ML SUSPENSION UDC PO PRN (05:40)
[2023-06-19] MEDS ORDERED: GLUCAGON INJ 1MG VIAL SC PRN (05:40)
[2023-06-19] MEDS ORDERED: GLUCOSE 4GM CHEW TABLET PO PRN (05:40)
[2023-06-19] MEDS ORDERED: DEXTROSE 50% 50ML SYRINGE IV PRN (05:40)
[2023-06-19 07:07] LABS: CK-MB VALUE MASS < 1.0 NG/ML (<3.6)
[2023-06-19 07:09] LABS: CPK CREATINE PHOSPHOKINASE 78 U/L (34-145); MB/CK RELATIVE INDEX 1.28 (< OR =4)
[2023-06-19 07:10] LABS: BLOOD UREA NITROGEN 22 MG/DL (9-23); CALCIUM LEVEL 8.2 MG/DL (8.3-10.6); CARBON DIOXIDE LEVEL 22 MMOL/L (20-31); CHLORIDE LEVEL 101 MMOL/L (98-107); CREATININE FOR GFR 0.93 MG/DL (0.55-1.30); GLOMERULAR FILTRATION RATE > 60.0 (>39); GLUCOSE, FASTING 392 MG/DL (74-106); MAGNESIUM LEVEL 1.9 MG/DL (1.8-2.4); POTASSIUM SERUM 3.9 MMOL/L (3.5-5.1); SODIUM LEVEL 131 MMOL/L (136-145)
[2023-06-19] MEDS ORDERED: METO25TA4 PO (07:39)
[2023-06-19] MEDS: APIXABAN 5 MG TAB (ELIQUIS) PO SCH (08:52)
[2023-06-19] MEDS: INSULIN LISPRO (NovoLOG) PER UNIT SC SCH ×2 (08:53→20:35)
[2023-06-19] MEDS: ACETAMINOPHEN TAB 650MG DOSE (2X325MG) PO PRN (08:54)
[2023-06-19] MEDS ORDERED: GABAPENTIN 300 MG CAP PO SCH (09:00)
[2023-06-19] MEDS: LR 1,000 ML IV SCH (09:12)
[2023-06-19] MEDS ORDERED: oxyCODONE 5MG TAB PO PRN (09:25)
[2023-06-19 10:24] VITALS: BP 158/72; TEMP 97.9; O2SAT 99
[2023-06-19] MEDS ORDERED: HOME MED LIST COMPLETE! XX SCH (11:20)
[2023-06-19] MEDS: ONDANSETRON 4MG ORAL DISINTEGRATING TAB SL PRN (11:22)
[2023-06-19] MEDS: LEVEMIR (INSULIN DETEMIR) 1 UNITS/0.01ML SC SCH (11:22)
[2023-06-19] MEDS: LIDOCAINE 5% (LIDODERM) PATCH TD SCH (11:23)
[2023-06-19] MEDS: CYCLOBENZAPRINE 5MG TABLET PO SCH (13:37)
[2023-06-19] MEDS: ACETAMINOPHEN 500 MG TAB PO SCH (13:38)
[2023-06-19] MEDS: VANICREAM MOISTURIZING SKIN CREAM 113GM TUBE TOP SCH (13:38)
[2023-06-19] MEDS: traMADol 50 MG TAB PO PRN (15:38)
[2023-06-19] MEDS: GABAPENTIN 300 MG CAP PO SCH (15:38)
[2023-06-19 16:00] VITALS: BP 140/78; TEMP 97.9; O2SAT 97
[2023-06-19] MEDS: FLUTICASONE PROP 0.05% NASAL SPRAY 16 GM (FLONASE) NARES SCH (17:52)
[2023-06-19] MEDS: RAMELTEON 8 MG TAB (ROZEREM) PO SCH (20:32)
[2023-06-19 21:07] VITALS: BP 136/58; TEMP 97.9; O2SAT 98
[2023-06-20 06:00] VITALS: BP 163/66; TEMP 97.5; O2SAT 94
[2023-06-20 06:11] LABS: HEMATOCRIT 32.1 % (36.0-47.0); HEMOGLOBIN 10.9 g/dl (12.0-15.5); MEAN CORPUSCULAR HEMOGLOBIN 32.6 pg (27.0-33.0); MEAN CORPUSCULAR VOLUME 96.1 fl (80.0-96.0); PLATELET COUNT, AUTOMATED 230 10^3/uL (150-450); RED BLOOD COUNT 3.34 10^6/uL (4.00-5.40); WHITE BLOOD COUNT 4.4 10^3/uL (4.0-10.0)
[2023-06-20] MEDS ORDERED: diazePAM 5MG TABLET PO PRN (11:15)
[2023-06-20] MEDS: LEVOTHYROXINE 88MCG TABLET (0.088 MG) PO SCH (12:14)
[2023-06-20] MEDS: VANICREAM MOISTURIZING SKIN CREAM 113GM TUBE TOP SCH (13:49)
[2023-06-20 14:46] VITALS: BP 126/59; TEMP 97.7; O2SAT 97
[2023-06-20] MEDS: ATORVASTATIN 20 MG TAB PO SCH (20:55)
[2023-06-20] MEDS: zolPIDEM TARTRATE 5 MG TAB PO SCH (20:56)
[2023-06-20] MEDS: METOPROLOL TART 25 MG TABLET PO SCH (20:56)
[2023-06-20] MEDS: LEVEMIR (INSULIN DETEMIR) 1 UNITS/0.01ML SC SCH (20:57)
[2023-06-20 21:00] VITALS: BP 138/69; TEMP 97.9; O2SAT 99
[2023-06-21 06:00] VITALS: BP 133/88; TEMP 98; O2SAT 94
[2023-06-21] MEDS: PARoxetine 20MG TABLET PO SCH (08:11)
[2023-06-21] MEDS: FUROSEMIDE 40 MG TAB PO SCH (08:11)
[2023-06-21] MEDS: ASPIRIN 81MG ENTERIC TABLET PO SCH (08:11)
[2023-06-21] MEDS: FEBUXOSTAT 40 MG TABLET (ULORIC) PO SCH (08:13)
[2023-06-21 14:00] VITALS: BP 129/56; TEMP 97.5; O2SAT 96
[2023-06-21 20:24] VITALS: BP 131/57; TEMP 98.1; O2SAT 94
[2023-06-22 05:34] VITALS: BP 132/52; TEMP 98.1; O2SAT 96
[2023-06-22] MEDS: LEVEMIR (INSULIN DETEMIR) 1 UNITS/0.01ML SC SCH (08:23)
[2023-06-22] MEDS: LIDOCAINE 5% (LIDODERM) PATCH TD SCH (08:25)
[2023-06-22] MEDS: INSULIN LISPRO (NovoLOG) PER UNIT SC SCH (12:37)
[2023-06-22 14:00] VITALS: BP 116/61; TEMP 97.5; O2SAT 95
[2023-06-23 06:01] VITALS: BP 128/57; TEMP 97.5; O2SAT 96
[2023-06-24 05:00] VITALS: BP 122/51; TEMP 97.5; O2SAT 94
[2023-06-24 08:54] VITALS: BP 124/57
[2023-06-24] MEDS ORDERED: GABA-282 PO (10:17)
== END 2023-06-24 11:00 | DRG 638 ==
LOC: EDBD 23:33 → M ED 23:33 → M ED INP 06-19 05:48 → M PCU 06-19 10:14 → M MSPAV 06-19 15:53
PROVIDERS: ADMIT Internal Medicine; ATTEND Student in an Organized Health Care Education/Training Program
DX: E11.65 Type 2 diabetes mellitus with hyperglycemia (principal); I13.0 Hypertensive heart and chronic kidney disease with heart failure and stage 1 through stage 4 chronic kidney disease, or unspecified chronic kidney disease; I50.32 Chronic diastolic (congestive) heart failure; E87.1 Hypo-osmolality and hyponatremia; E11.22 Type 2 diabetes mellitus with diabetic chronic kidney disease; R29.6 Repeated falls; E03.9 Hypothyroidism, unspecified; N18.30 Chronic kidney disease, stage 3 unspecified; J44.9 Chronic obstructive pulmonary disease, unspecified; F32.A Depression, unspecified; I25.10 Atherosclerotic heart disease of native coronary artery without angina pectoris; M81.0 Age-related osteoporosis without current pathological fracture; I48.91 Unspecified atrial fibrillation; M10.9 Gout, unspecified; Z95.1 Presence of aortocoronary bypass graft; R26.9 Unspecified abnormalities of gait and mobility; K21.9 Gastro-esophageal reflux disease without esophagitis; M75.101 Unspecified rotator cuff tear or rupture of right shoulder, not specified as traumatic; G47.00 Insomnia, unspecified; F41.9 Anxiety disorder, unspecified; Z79.01 Long term (current) use of anticoagulants; Z79.82 Long term (current) use of aspirin; Z79.4 Long term (current) use of insulin; Z88.5 Allergy status to narcotic agent; Z79.899 Other long term (current) drug therapy; Z88.2 Allergy status to sulfonamides; Z87.891 Personal history of nicotine dependence